=== PATIENT | female | born 1950 | race Caucasian/White ===

== ENCOUNTER 2017-09-26 12:20 | Inpatient (IN) | payer MEDICARE, BC ==
[~2017-09-26] VITALS: Ht 157.5 cm; Wt 61.2 kg
[~2017-09-26 12:20] MED LIST: CYCL10 PO; LORA1TAB3 PO; PALI234D IM; PALI6 PO
[2017-09-26 13:00] LABS: BASOPHILS % (AUTO) 0.6 % (0.0-2.0); EOSINOPHILS % (AUTO) 0.5 % (1.0-6.0); HEMATOCRIT 36.4 % (36-46); HEMOGLOBIN 12.6 g/dL (12.0-16.0); LYMPHOCYTES # (AUTO) 2.8 K/uL (1.0-4.8); LYMPHOCYTES % (AUTO) 19.1 % (22.0-44.0); MEAN CORPUSCULAR HGB CONC 34.6 G/dL (31.0-37.0); MEAN CORPUSCULAR VOLUME 87 fL (80-100); MONOCYTES # (AUTO) 0.9 K/uL (0.1-1.0); MONOCYTES % (AUTO) 6.5 % (2.0-9.0); NEUTROPHILS # (AUTO) 10.6 K/uL (1.8-7.7); NEUTROPHILS % (AUTO) 73.3 % (40.0-70.0); PLATELET COUNT (AUTO) 273 K/uL (150-450); RED BLOOD CELL COUNT(AUTO) 4.19 MIL/uL (4.00-5.20); RED CELL DISTRIBUTION WIDTH 13.7 % (11.5-14.5)
[2017-09-26 13:10] LABS: ANION GAP 13 mmol/L (8-16); CALCIUM, TOTAL 9.3 mg/dL (8.8-10.5); CARBON DIOXIDE 23 mmol/L (22-29); CHLORIDE 102 mmol/L (98-107); CREATININE 0.82 mg/dL (0.60-1.30); GLOMERULAR FILTR. RATE CALC > 60 mL/min (>60); GLUCOSE,RANDOM 106 mg/dL (70-110); POTASSIUM 3.8 mmol/L (3.5-5.1); SODIUM SERUM 138 mmol/L (136-145); UREA NITROGEN, BLOOD 13 mg/dL (7-18)
[2017-09-26 13:26] LABS: ALANINE AMINOTRANSFERASE 33 U/L (12-78); ALBUMIN 3.6 g/dL (3.4-5.0); ALKALINE PHOSPHATASE 82 U/L (46-116); ASPARTATE AMINOTRANSFERASE 30 U/L (15-37); BILIRUBIN,TOTAL 0.4 mg/dL (0.1-1.0); TOTAL PROTEIN, SERUM 6.7 g/dL (6.4-8.2)
[2017-09-26] MEDS ORDERED: LORazepam 2 MG TABLET PO PRN (17:15)
[2017-09-26] MEDS ORDERED: LIDOCAINE HCL 1% 20 ML VIAL INJ ONE (17:15)
[2017-09-26] MEDS ORDERED: HALOPERIDOL 5 MG TABLET PO PRN (17:15)
[2017-09-26] MEDS ORDERED: SODIUM CHLORIDE 0.9% 250 ML IRRIG SOLUTION BOTTLE IRRIG ONE (17:15)
[2017-09-26] MEDS ORDERED: PERTUSS(ACELL),DIPH,TET VAC/PF 0.5 ML VIAL IM ONE (17:15)
[2017-09-26] MEDS ORDERED: ZOLPIDEM TARTRATE 10 MG TABLET PO PRN (17:15)
[2017-09-26 20:21] VITALS: BP 112/62
[2017-09-26] MEDS ORDERED: IBUPROFEN 600 MG TABLET PO PRN (20:45)
[2017-09-26] MEDS ORDERED: LOPERAMIDE HCL 2 MG CAPSULE PO PRN (20:45)
[2017-09-26] MEDS ORDERED: MAG HYDROX/AL HYDROX/SIMETH ES 30 ML SUSPENSION UDCUP PO PRN (20:45)
[2017-09-26] MEDS ORDERED: MAGNESIUM HYDROXIDE SUSPENSION 30 ML UDCUP PO PRN (20:45)
[2017-09-26] MEDS ORDERED: ACETAMINOPHEN 325 MG TABLET PO PRN (20:45)
[2017-09-26] MEDS ORDERED: PETROLATUM,WHITE 71 GM JELLY TP PRN (20:45)
[2017-09-26] MEDS ORDERED: BENZOCAINE/MENTHOL LOZENGE MM PRN (20:45)
[2017-09-26] MEDS ORDERED: BACITRACIN 28.4 GM OINTMENT TP PRN (20:45)
[2017-09-26] MEDS ORDERED: ONDANSETRON HCL 4 MG TABLET PO PRN (20:45)
[2017-09-26] MEDS ORDERED: CloNIDine HCL 0.1 MG TABLET PO PRN (20:45)
[2017-09-26] MEDS ORDERED: ALBUTEROL SULFATE HFA 90 MCG/PUFF 8 GM INHALER IH PRN (20:45)
[2017-09-27 13:08] VITALS: BP 125/69
[2017-09-27 16:46] VITALS: BP 119/77
[2017-09-27] MEDS: PALIPERIDONE 6 MG ER TABLET PO SCH (21:00)
[2017-09-28] MEDS: ASCORBIC ACID 500 MG TABLET PO SCH (08:12)
[2017-09-28] MEDS: PALIPERIDONE 6 MG ER TABLET PO SCH ×2 (08:12→21:00)
[2017-09-28] MEDS: MULTIVITAMINS, THERAPEUTIC TABLET PO SCH (08:12)
[2017-09-28 08:35] VITALS: BP 126/70
[2017-09-28 16:00] VITALS: BP 110/63
[2017-09-28] MEDS: SULFAMETHOX/TRIMETH DS 800-160 MG/TABLET PO SCH (16:50)
[2017-09-29 08:29] VITALS: BP 150/76
[2017-09-29] MEDS: SULFAMETHOX/TRIMETH DS 800-160 MG/TABLET PO SCH ×2 (08:47→16:12)
[2017-09-29] MEDS: MULTIVITAMINS, THERAPEUTIC TABLET PO SCH ×2 (08:48→12:13)
[2017-09-29] MEDS: PALIPERIDONE 6 MG ER TABLET PO SCH ×2 (08:48→20:32)
[2017-09-29] MEDS: ASCORBIC ACID 500 MG TABLET PO SCH ×2 (08:48→12:13)
[2017-09-29 16:30] VITALS: BP 131/72
[2017-09-30] MEDS: PALIPERIDONE 6 MG ER TABLET PO SCH ×2 (07:38→20:35)
[2017-09-30] MEDS: ASCORBIC ACID 500 MG TABLET PO SCH (07:40)
[2017-09-30] MEDS: SULFAMETHOX/TRIMETH DS 800-160 MG/TABLET PO SCH ×2 (07:40→16:35)
[2017-09-30] MEDS: MULTIVITAMINS, THERAPEUTIC TABLET PO SCH (07:40)
[2017-09-30 08:28] VITALS: BP 146/66
[2017-10-01 06:05] LABS: BAND NEUTROPHILS % (MANUAL) 0 % (0-5)
[2017-10-01 06:06] VITALS: BP 103/67
[2017-10-01 06:09] LABS: HEMATOCRIT 36.2 % (36-46); HEMOGLOBIN 12.7 g/dL (12.0-16.0); MEAN CORPUSCULAR HEMOGLOBIN 30.7 pg (26.0-34.0); MEAN CORPUSCULAR VOLUME 88 fL (80-100); PLATELET COUNT (AUTO) 255 K/uL (150-450); RED BLOOD CELL COUNT(AUTO) 4.13 MIL/uL (4.00-5.20); RED CELL DISTRIBUTION WIDTH 14.4 % (11.5-14.5)
[2017-10-01 06:21] LABS: ANION GAP 6 mmol/L (8-16); CALCIUM, TOTAL 9.3 mg/dL (8.8-10.5); CARBON DIOXIDE 29 mmol/L (22-29); CHLORIDE 105 mmol/L (98-107); CREATININE 0.89 mg/dL (0.60-1.30); GLOMERULAR FILTR. RATE CALC > 60 mL/min (>60); GLUCOSE,RANDOM 91 mg/dL (70-110); PHOSPHORUS 4.3 mg/dL (2.5-4.9); POTASSIUM 4.7 mmol/L (3.5-5.1); SODIUM SERUM 140 mmol/L (136-145); UREA NITROGEN, BLOOD 18 mg/dL (7-18)
[2017-10-01] MEDS: MULTIVITAMINS, THERAPEUTIC TABLET PO SCH (08:20)
[2017-10-01] MEDS: ASCORBIC ACID 500 MG TABLET PO SCH (08:20)
[2017-10-01] MEDS: SULFAMETHOX/TRIMETH DS 800-160 MG/TABLET PO SCH ×2 (08:21→16:14)
[2017-10-01] MEDS: PALIPERIDONE 6 MG ER TABLET PO SCH ×2 (08:24→20:19)
[2017-10-01 09:15] LABS: EOSINOPHILS % (MANUAL) 1 % (1-6); LYMPHOCYTES % (MANUAL) 28 % (22-44); MONOCYTES % (MANUAL) 3 % (2-9); SEGMENTED NEUTROPHILS % 68 % (40-70)
[2017-10-01 09:57] VITALS: BP 106/64
[2017-10-01 17:00] VITALS: BP 101/62
[2017-10-02 01:30] VITALS: BP 106/65
[2017-10-02] MEDS: MULTIVITAMINS, THERAPEUTIC TABLET PO SCH (08:14)
[2017-10-02] MEDS: ASCORBIC ACID 500 MG TABLET PO SCH (08:14)
[2017-10-02] MEDS: SULFAMETHOX/TRIMETH DS 800-160 MG/TABLET PO SCH (08:14)
[2017-10-02] MEDS: PALIPERIDONE 6 MG ER TABLET PO SCH (08:15)
[2017-10-02 09:50] VITALS: BP 117/75
[2017-10-02] MEDS ORDERED: MULT-1239 PO (11:08)
[2017-10-02] MEDS ORDERED: ASCO500 PO (11:08)
[2017-10-02] MEDS ORDERED: SULF1TAB42 PO (11:10)
== END 2017-10-02 12:30 | disposition home or self-care (01) | DRG 885 ==
LOC: EMS 12:21 → 3EC 18:13
PROVIDERS: ADMIT Psychiatry & Neurology Psychiatry; ATTEND Psychiatry & Neurology Psychiatry
DX: F25.9 Schizoaffective disorder, unspecified (principal); K51.90 Ulcerative colitis, unspecified, without complications; T79.7XXA Traumatic subcutaneous emphysema, initial encounter; F41.9 Anxiety disorder, unspecified; K59.00 Constipation, unspecified; F17.210 Nicotine dependence, cigarettes, uncomplicated; Z71.6 Tobacco abuse counseling; S61.411A Laceration without foreign body of right hand, initial encounter; X58.XXXA Exposure to other specified factors, initial encounter; Y93.89 Activity, other specified; Y92.89 Other specified places as the place of occurrence of the external cause; Y99.8 Other external cause status; Z59.0 Homelessness; D72.829 Elevated white blood cell count, unspecified; Z91.19 Patient's noncompliance with other medical treatment and regimen; F10.21 Alcohol dependence, in remission; F19.11 Other psychoactive substance abuse, in remission
CPT/HCPCS: 12002; 83735; 84100; 85007; 87081; 90471; 90715; 96372; 99285; G0480; J0690; J3490

== ENCOUNTER 2022-10-13 17:07 | Inpatient (IN) | payer MEDICARE, OTHER ==
[~2022-10-13] VITALS: Ht 170.2 cm; Wt 73.0 kg
[~2022-10-13 17:07] MED LIST changes: +ASCO500 PO; -CYCL10 PO; -LORA1TAB3 PO; +MULT-1239 PO; -PALI234D IM; -PALI6 PO; +PALI6TAB15 PO; +SULF1TAB42 PO
[2022-10-13] MEDS ORDERED: NALOXONE HCL 1 MG/ML 2 ML SYRINGE IVP ONE (17:30)
[2022-10-13] MEDS ORDERED: CefTRIAXone 1 GM/DEXTROSE 50 ML IV ONE (17:30)
[2022-10-13] MEDS ORDERED: FLUP10TA8 PO (17:43)
[2022-10-13] MEDS ORDERED: LORA-999 PO (17:43)
[2022-10-13] MEDS ORDERED: TRAZ-252 PO (17:43)
[2022-10-13] MEDS ORDERED: APIX5TAB PO (17:43)
[2022-10-13] MEDS ORDERED: NICO-703 TD (17:43)
[2022-10-13] MEDS ORDERED: THIA100T92 PO (17:43)
[2022-10-13] MEDS ORDERED: MELO-108 PO (17:43)
[2022-10-13] MEDS ORDERED: BENZ1TAB84 PO (17:43)
[2022-10-13] MEDS ORDERED: ALBU18HF12 IH (17:43)
[2022-10-13] MEDS ORDERED: ARIP15TA27 PO (17:43)
[2022-10-13] MEDS ORDERED: MULT-1366 PO (17:43)
[2022-10-13] MEDS ORDERED: FLUT1BLS3 IH (17:43)
[2022-10-13] MEDS ORDERED: KETO15CR2 TP (17:43)
[2022-10-13] MEDS ORDERED: LOSA-382 PO (17:43)
[2022-10-13 17:46] LABS: ABG BASE EXCESS 8.4 mmol/L (-2.0-3.0); ABG CARBOXYHEMOGLOBIN 3.9 % (0.0-1.5); ABG HCO3 28.3 mmol/L (22.0-26.0); ABG METHEMOGLOBIN 0.3 % (0.0-1.5); ABG OXYGEN CONTENT 18.2 mL/dL (15.0-23.0); ABG OXYGEN SATURATION 98.7 % (95.0-98.0); ABG OXYHEMOGLOBIN 94.6 % (94.0-100.0); ABG PCO2 126 mmHg (35-45); ABG TOTAL HEMOGLOBIN 13.4 G/dL (12.0-18.0); ALLEN TEST, BLOOD GAS Positive; PO2, ARTERIAL BG 197.9 mmHg (75.0-83.0); SITE, BLOOD GAS LFT RADIAL; SOURCE, BLOOD GAS ARTERIAL; TEMPERATURE, FAHRENHEIT, BG 99.3 FAHREN (96.0-98.6)
[2022-10-13 17:47] LABS: O2 DEVICE,BLOOD GAS NON REBREATHER (ROOM AIR)
[2022-10-13 17:54] LABS: COVID AG,FIA SOURCE NASAL SWAB
[2022-10-13 17:57] LABS: BASOPHILS % (AUTO) 0.1 % (0.0-2.0); EOSINOPHILS % (AUTO) 0.1 % (1.0-6.0); HEMATOCRIT 37.6 % (36-46); HEMOGLOBIN 12.2 g/dL (12.0-16.0); LYMPHOCYTES # (AUTO) 0.6 K/uL (1.0-4.8); LYMPHOCYTES % (AUTO) 7.7 % (22.0-44.0); MEAN CORPUSCULAR HEMOGLOBIN 27.7 pg (26.0-34.0); MEAN CORPUSCULAR HGB CONC 32.3 G/dL (31.0-37.0); MEAN CORPUSCULAR VOLUME 86 fL (80-100); MONOCYTES # (AUTO) 0.9 K/uL (0.1-1.0); MONOCYTES % (AUTO) 10.4 % (2.0-9.0); NEUTROPHILS # (AUTO) 6.7 K/uL (1.8-7.7); NEUTROPHILS % (AUTO) 81.7 % (40.0-70.0); PLATELET COUNT (AUTO) 287 K/uL (150-450); RED BLOOD CELL COUNT(AUTO) 4.39 MIL/uL (4.00-5.20); RED CELL DISTRIBUTION WIDTH 16.6 % (11.5-14.5); WHITE BLOOD COUNT (AUTO) 8.2 K/uL (4.5-11.0)
[2022-10-13 18:02] LABS: APPEARANCE,URINE CLEAR (CLEAR); BILIRUBIN,URINE NEGATIVE (NEGATIVE); COLOR,URINE YELLOW (YELLOW); GLUCOSE, URINE (UA) NEGATIVE (NEGATIVE); KETONES,URINE NEGATIVE (NEGATIVE); LEUKOCYTE ESTERASE ,URINE NEGATIVE (NEGATIVE); NITRATE,URINE NEGATIVE (NEGATIVE); OCCULT BLOOD,URINE NEGATIVE (NEGATIVE); PH,URINE 5.5 (5.0-8.0); PH,URINE DRUG SCREEN 5.5 (5.0-8.0); PROTEIN,URINE 100-200,SEE CONFIRM mg/dL (NEGATIVE)
[2022-10-13] MEDS: PROPOFOL 1000 MG/ISO-OSM 100 ML IV PRN (18:05)
[2022-10-13 18:07] VITALS: PULSE 94; RESP 24; O2SAT 97
[2022-10-13 18:09] LABS: ALCOHOL, URINE DRUG SCREEN NEGATIVE (NEGATIVE); AMPHET/METH SCREEN,URINE NEGATIVE (NEGATIVE); BARBITURATE SCREEN, URINE NEGATIVE (NEGATIVE); BENZODIAZEPINES SCREEN,URINE NEGATIVE (NEGATIVE); CANNABINOID SCREEN,URINE NEGATIVE (NEGATIVE); COCAINE SCREEN,URINE NEGATIVE (NEGATIVE); METHADONE SCREEN, URINE NEGATIVE (NEGATIVE); OPIATE SCREEN,URINE NEGATIVE (NEGATIVE); PHENCYCLIDINE SCREEN,URINE NEGATIVE (NEGATIVE)
[2022-10-13 18:16] LABS: SULFOSALICYLIC ACID,URINE 3+ (Negative)
[2022-10-13 18:17] LABS: BACTERIA,URINE None Seen /HPF (None Seen); RBC,URINE None Seen /HPF (0-2); WBC,URINE 0-2 /HPF (0-5)
[2022-10-13 18:20] LABS: INFLUENZA TYPE A NEGATIVE FOR TYPE A (NEGATIVE); INFLUENZA TYPE B NEGATIVE FOR TYPE B (NEGATIVE); SARS-COV2 (COVID) ANTIGEN,FIA Negative (Negative)
[2022-10-13 18:21] LABS: B-TYPE NATRIURETIC PEPTIDE 553 pg/mL (0-100)
[2022-10-13 18:29] LABS: ALCOHOL, BLOOD (SERUM) < 3 mg/dL (0-10)
[2022-10-13 18:33] LABS: ALANINE AMINOTRANSFERASE 42 U/L (12-78); ALBUMIN 3.1 g/dL (3.4-5.0); ALKALINE PHOSPHATASE 104 U/L (46-116); ANION GAP 4 mmol/L (8-16); ASPARTATE AMINOTRANSFERASE 27 U/L (15-37); BILIRUBIN,TOTAL 0.4 mg/dL (0.1-1.0); CALCIUM, TOTAL 8.5 mg/dL (8.8-10.5); CARBON DIOXIDE 34 mmol/L (22-29); CHLORIDE 86 mmol/L (98-107); CREATINE KINASE, TOTAL ONLY 95 U/L (26-192); CREATININE 0.64 mg/dL (0.60-1.30); GLOMERULAR FILTR. RATE CALC > 60 mL/min (>60); GLUCOSE,RANDOM 138 mg/dL (70-110); LIPASE 14 U/L (16-77); POTASSIUM 5.4 mmol/L (3.5-5.1); TOTAL PROTEIN, SERUM 6.3 g/dL (6.4-8.2); UREA NITROGEN, BLOOD 21 mg/dL (7-18)
[2022-10-13 18:36] LABS: ACETONE,BLOOD NEGATIVE (NEGATIVE)
[2022-10-13 18:40] LABS: SODIUM SERUM 124 mmol/L (136-145)
[2022-10-13] MEDS ORDERED: ETOMIDATE 2 MG/ML 10 ML VIAL IVP ONE (18:45)
[2022-10-13] MEDS ORDERED: PROPOFOL 1000 MG/ISO-OSM 100 ML IV PRN (18:45)
[2022-10-13] MEDS ORDERED: ROCURONIUM BROMIDE 10 MG/ML 5 ML VIAL IVP ONE (18:45)
[2022-10-13 18:48] LABS: AMMONIA 45 umol/L (11-32); TROPONIN I-HIGH SENSITIVITY 15 ng/L (<51)
[2022-10-13] MEDS ORDERED: LACTULOSE 200 GM/300 ML RECTAL SOLUTION PR ONE (19:00)
[2022-10-13] MEDS ORDERED: CALCIUM GLUCONATE 100 MG/ML 10 ML IVP ONE (19:00)
[2022-10-13] MEDS ORDERED: ONDANSETRON HCL 4 MG/2 ML VIAL IVP PRN (19:00)
[2022-10-13] MEDS ORDERED: VECURONIUM BROMIDE 10 MG/VIAL IVP ONE (19:15)
[2022-10-13] MEDS ORDERED: FentaNYL CIT 1000MCG/0.9% NACL 100 ML IV PRN (19:15)
[2022-10-13 19:21] LABS: LACTIC ACID 1.3 mmol/L (0.4-2.0)
[2022-10-13 19:56] VITALS: PULSE 92; RESP 32; O2SAT 99
[2022-10-13 19:57] VITALS: PULSE 92; RESP 32; O2SAT 99
[2022-10-13] MEDS ORDERED: OXYGEN THERAPY IH SCH (20:00)
[2022-10-13] MEDS ORDERED: LEVOFLOXACIN 500 MG/D5% WATER 100 ML IV ONE (20:45)
[2022-10-13] MEDS: DOCUSATE SODIUM 100 MG CAPSULE PO SCH (21:00)
[2022-10-13] MEDS ORDERED: SODIUM CHLORIDE 0.9% 1,500 ML IV ONE (21:00)
[2022-10-13 22:00] VITALS: PULSE 89; RESP 24; O2SAT 94
[2022-10-13] MEDS: ETHYL ALCOHOL 62% ANTISEPTIC NASAL SANITIZER 0.6 ML AMPUL NASAL SCH (22:08)
[2022-10-13] MEDS: AZITHROMYCIN 500 MG/NS 250 ML IV SCH (22:09)
[2022-10-13] MEDS ORDERED: SODIUM CHLORIDE 0.9% 500 ML IV ONE (22:12)
[2022-10-13 23:27] LABS: ABG BASE EXCESS 10.6 mmol/L (-2.0-3.0); ABG CARBOXYHEMOGLOBIN 0.8 % (0.0-1.5); ABG HCO3 33.4 mmol/L (22.0-26.0); ABG METHEMOGLOBIN 0.3 % (0.0-1.5); ABG OXYGEN CONTENT 19.6 mL/dL (15.0-23.0); ABG OXYGEN SATURATION 99.9 % (95.0-98.0); ABG OXYHEMOGLOBIN 98.8 % (94.0-100.0); ABG PCO2 45 mmHg (35-45); ABG PH 7.496 (7.35-7.450); ABG TOTAL HEMOGLOBIN 13.2 G/dL (12.0-18.0); PO2, ARTERIAL BG 462.4 mmHg (75.0-83.0); SITE, BLOOD GAS RT RADIAL; SOURCE, BLOOD GAS ARTERIAL; TEMPERATURE, FAHRENHEIT, BG 100.2 FAHREN (96.0-98.6)
[2022-10-13 23:28] LABS: O2 DEVICE,BLOOD GAS VENTILATOR (ROOM AIR); PEEP,BG 5 cm H2O; VT, ABG 450 ml
[2022-10-13] MEDS: HEPARIN SODIUM,PORCINE 5,000 UNITS/ML VIAL SQ SCH (23:33)
[2022-10-13 23:50] VITALS: PULSE 78; RESP 28; O2SAT 98
[2022-10-14] VITALS (14 sets, daily range): BP systolic 84–105; BP diastolic 54–79; PULSE 77–90; RESP 24; TEMP 98–100.2; O2SAT 94–98
[2022-10-14] MEDS: PROPOFOL 1000 MG/ISO-OSM 100 ML IV PRN ×3 (05:25→18:40)
[2022-10-14] MEDS ORDERED: DEXMEDETOMIDINE HCL 400 MCG in SODIUM CHLORIDE 0.9% 96 ML IV PRN (05:30)
[2022-10-14] MEDS ORDERED: NOREPINEPHRINE 8 MG/0.9 % NACL 250 ML IV ONE (05:48)
[2022-10-14] MEDS ORDERED: ROCURONIUM BROMIDE 10 MG/ML 5 ML VIAL IVP ONE (06:15)
[2022-10-14] MEDS ORDERED: ETOMIDATE 2 MG/ML 10 ML VIAL IVP ONE (06:15)
[2022-10-14] MEDS: DOCUSATE SODIUM 100 MG CAPSULE PO SCH ×2 (08:22→21:00)
[2022-10-14] MEDS: HEPARIN SODIUM,PORCINE 5,000 UNITS/ML VIAL SQ SCH ×3 (08:22→23:27)
[2022-10-14] MEDS: ETHYL ALCOHOL 62% ANTISEPTIC NASAL SANITIZER 0.6 ML AMPUL NASAL SCH ×2 (08:22→21:16)
[2022-10-14 08:28] LABS: BASOPHILS % (AUTO) 0.5 % (0.0-2.0); EOSINOPHILS % (AUTO) 0.2 % (1.0-6.0); HEMATOCRIT 37.5 % (36-46); HEMOGLOBIN 11.9 g/dL (12.0-16.0); LYMPHOCYTES # (AUTO) 2.6 K/uL (1.0-4.8); LYMPHOCYTES % (AUTO) 22.1 % (22.0-44.0); MEAN CORPUSCULAR HEMOGLOBIN 26.5 pg (26.0-34.0); MEAN CORPUSCULAR HGB CONC 31.6 G/dL (31.0-37.0); MEAN CORPUSCULAR VOLUME 84 fL (80-100); MONOCYTES # (AUTO) 1.3 K/uL (0.1-1.0); MONOCYTES % (AUTO) 11.2 % (2.0-9.0); NEUTROPHILS # (AUTO) 7.8 K/uL (1.8-7.7); PLATELET COUNT (AUTO) 278 K/uL (150-450); RED BLOOD CELL COUNT(AUTO) 4.47 MIL/uL (4.00-5.20); RED CELL DISTRIBUTION WIDTH 17.3 % (11.5-14.5); WHITE BLOOD COUNT (AUTO) 11.8 K/uL (4.5-11.0)
[2022-10-14 08:42] LABS: ANION GAP 5 mmol/L (8-16); CALCIUM, TOTAL 8.4 mg/dL (8.8-10.5); CARBON DIOXIDE 33 mmol/L (22-29); CHLORIDE 88 mmol/L (98-107); CREATININE 0.63 mg/dL (0.60-1.30); GLOMERULAR FILTR. RATE CALC > 60 mL/min (>60); GLUCOSE,RANDOM 101 mg/dL (70-110); POTASSIUM 4.8 mmol/L (3.5-5.1); SODIUM SERUM 126 mmol/L (136-145); UREA NITROGEN, BLOOD 19 mg/dL (7-18)
[2022-10-14 09:12] LABS: RBC MORPHOLOGY COMMENT ABNORMAL RBC MORPH
[2022-10-14 09:55] LABS: SODIUM,URINE RANDOM < 5 mmol/l (20-110)
[2022-10-14 09:56] LABS: OSMOLALITY,URINE 419 mOsm/kg (50-1500)
[2022-10-14] MEDS: FentaNYL CIT 1000MCG/0.9% NACL 100 ML IV PRN (10:33)
[2022-10-14] MEDS: DEXTROSE 5%-0.9% SODIUM CHL 1,000 ML IV SCH ×2 (10:56→21:17)
[2022-10-14 16:46] LABS: CREATININE,URINE RANDOM 84.8 mg/dL (30.0-125.0)
[2022-10-14] MEDS: AZITHROMYCIN 500 MG/NS 250 ML IV SCH (23:27)
[2022-10-15] VITALS (15 sets, daily range): BP systolic 80–112; BP diastolic 46–63; PULSE 57–88; RESP 24; TEMP 98.2–101; O2SAT 94–100
[2022-10-15] MEDS: PROPOFOL 1000 MG/ISO-OSM 100 ML IV PRN ×4 (03:07→23:45)
[2022-10-15 06:12] LABS: EOSINOPHILS % (AUTO) 0.2 % (1.0-6.0); HEMATOCRIT 39.5 % (36-46); HEMOGLOBIN 12.7 g/dL (12.0-16.0); LYMPHOCYTES % (AUTO) 17.6 % (22.0-44.0); MEAN CORPUSCULAR HEMOGLOBIN 27.8 pg (26.0-34.0); MEAN CORPUSCULAR HGB CONC 32.2 G/dL (31.0-37.0); MEAN CORPUSCULAR VOLUME 86 fL (80-100); MONOCYTES # (AUTO) 1.2 K/uL (0.1-1.0); MONOCYTES % (AUTO) 10.8 % (2.0-9.0); NEUTROPHILS % (AUTO) 70.4 % (40.0-70.0); PLATELET COUNT (AUTO) 128 K/uL (150-450); RED BLOOD CELL COUNT(AUTO) 4.57 MIL/uL (4.00-5.20); WHITE BLOOD COUNT (AUTO) 11.3 K/uL (4.5-11.0)
[2022-10-15 06:42] LABS: ANION GAP 15 mmol/L (8-16); CALCIUM, TOTAL 8.5 mg/dL (8.8-10.5); CARBON DIOXIDE 31 mmol/L (22-29); CHLORIDE 93 mmol/L (98-107); CREATININE 0.63 mg/dL (0.60-1.30); GLOMERULAR FILTR. RATE CALC > 60 mL/min (>60); GLUCOSE,RANDOM 120 mg/dL (70-110); PHOSPHORUS 2.7 mg/dL (2.5-4.9); POTASSIUM 4.4 mmol/L (3.5-5.1); SODIUM SERUM 139 mmol/L (136-145); UREA NITROGEN, BLOOD 15 mg/dL (7-18)
[2022-10-15] MEDS: HEPARIN SODIUM,PORCINE 5,000 UNITS/ML VIAL SQ SCH ×3 (08:14→23:46)
[2022-10-15] MEDS: DEXTROSE 5%-0.9% SODIUM CHL 1,000 ML IV SCH (08:14)
[2022-10-15] MEDS: DOCUSATE SODIUM 100 MG CAPSULE PO SCH ×2 (08:14→20:19)
[2022-10-15] MEDS: ETHYL ALCOHOL 62% ANTISEPTIC NASAL SANITIZER 0.6 ML AMPUL NASAL SCH ×2 (08:16→20:19)
[2022-10-15] MEDS ORDERED: DEXTROSE 5%-WATER 1,000 ML IV SCH (11:45)
[2022-10-15 12:48] LABS: ANION GAP 3 mmol/L (8-16); CALCIUM, TOTAL 8.2 mg/dL (8.8-10.5); CARBON DIOXIDE 34 mmol/L (22-29); CHLORIDE 100 mmol/L (98-107); CREATININE 0.57 mg/dL (0.60-1.30); GLOMERULAR FILTR. RATE CALC > 60 mL/min (>60); GLUCOSE,RANDOM 110 mg/dL (70-110); POTASSIUM 4.1 mmol/L (3.5-5.1); SODIUM SERUM 137 mmol/L (136-145); UREA NITROGEN, BLOOD 11 mg/dL (7-18)
[2022-10-15 12:51] LABS: PHOSPHORUS 2.9 mg/dL (2.5-4.9)
[2022-10-15] MEDS: SODIUM CHLORIDE 0.45% 1,000 ML IV SCH ×2 (14:48→15:00)
[2022-10-15 17:40] LABS: ANION GAP 18 mmol/L (8-16); CALCIUM, TOTAL 8.2 mg/dL (8.8-10.5); CARBON DIOXIDE 32 mmol/L (22-29); CHLORIDE 97 mmol/L (98-107); CREATININE 0.52 mg/dL (0.60-1.30); GLOMERULAR FILTR. RATE CALC > 60 mL/min (>60); GLUCOSE,RANDOM 100 mg/dL (70-110); POTASSIUM 4.3 mmol/L (3.5-5.1); SODIUM SERUM 147 mmol/L (136-145); UREA NITROGEN, BLOOD 10 mg/dL (7-18)
[2022-10-15] MEDS ORDERED: NOREPINEPHRINE 8 MG/0.9 % NACL 250 ML IV ONE (20:06)
[2022-10-15] MEDS: FentaNYL CIT 1000MCG/0.9% NACL 100 ML IV PRN (20:20)
[2022-10-15] MEDS: NOREPINEPHRINE 8 MG/0.9 % NACL 250 ML IV PRN (20:21)
[2022-10-15] MEDS: BUDESONIDE 0.5 MG/2 ML NEB SOLUTION NEB SCH (20:47)
[2022-10-15] MEDS: ALBUTEROL SULFATE 2.5 MG/0.5 ML NEB SOLUTION NEB SCH (20:47)
[2022-10-15] MEDS: IPRATROPIUM BROMIDE 0.5 MG/2.5 ML NEB SOLUTION NEB SCH (20:49)
[2022-10-15] MEDS: ACETAMINOPHEN 325 MG TABLET PO PRN (21:07)
[2022-10-15] MEDS: AZITHROMYCIN 500 MG/NS 250 ML IV SCH (23:45)
[2022-10-16] VITALS (16 sets, daily range): BP systolic 102–147; BP diastolic 47–93; PULSE 62–100; RESP 24–26; TEMP 99.7–101; O2SAT 93–99
[2022-10-16] MEDS: ALBUTEROL SULFATE 2.5 MG/0.5 ML NEB SOLUTION NEB SCH ×4 (04:16→20:01)
[2022-10-16] MEDS: IPRATROPIUM BROMIDE 0.5 MG/2.5 ML NEB SOLUTION NEB SCH ×4 (04:16→20:00)
[2022-10-16] MEDS: SODIUM CHLORIDE 0.45% 1,000 ML IV SCH (05:52)
[2022-10-16] MEDS: ACETAMINOPHEN 325 MG TABLET PO PRN ×3 (05:52→20:58)
[2022-10-16 08:12] LABS: BASOPHILS % (AUTO) 0.9 % (0.0-2.0); EOSINOPHILS % (AUTO) 0.3 % (1.0-6.0); HEMATOCRIT 38.2 % (36-46); HEMOGLOBIN 12.1 g/dL (12.0-16.0); LYMPHOCYTES # (AUTO) 2.2 K/uL (1.0-4.8); LYMPHOCYTES % (AUTO) 12.2 % (22.0-44.0); MEAN CORPUSCULAR HGB CONC 31.7 G/dL (31.0-37.0); MEAN CORPUSCULAR VOLUME 85 fL (80-100); MONOCYTES # (AUTO) 1.5 K/uL (0.1-1.0); MONOCYTES % (AUTO) 8.2 % (2.0-9.0); NEUTROPHILS # (AUTO) 14.1 K/uL (1.8-7.7); NEUTROPHILS % (AUTO) 78.4 % (40.0-70.0); PLATELET COUNT (AUTO) 343 K/uL (150-450); RED BLOOD CELL COUNT(AUTO) 4.47 MIL/uL (4.00-5.20); RED CELL DISTRIBUTION WIDTH 17.5 % (11.5-14.5)
[2022-10-16 08:26] LABS: ANION GAP 5 mmol/L (8-16); CALCIUM, TOTAL 8.5 mg/dL (8.8-10.5); CARBON DIOXIDE 30 mmol/L (22-29); CHLORIDE 100 mmol/L (98-107); CREATININE 0.52 mg/dL (0.60-1.30); GLOMERULAR FILTR. RATE CALC > 60 mL/min (>60); GLUCOSE,RANDOM 112 mg/dL (70-110); PHOSPHORUS 3.8 mg/dL (2.5-4.9); POTASSIUM 4.1 mmol/L (3.5-5.1); SODIUM SERUM 135 mmol/L (136-145); UREA NITROGEN, BLOOD 9 mg/dL (7-18)
[2022-10-16] MEDS: HEPARIN SODIUM,PORCINE 5,000 UNITS/ML VIAL SQ SCH ×2 (09:18→17:58)
[2022-10-16] MEDS: FentaNYL CIT 1000MCG/0.9% NACL 100 ML IV PRN ×2 (09:18→22:06)
[2022-10-16] MEDS: PROPOFOL 1000 MG/ISO-OSM 100 ML IV PRN ×2 (09:18→22:07)
[2022-10-16] MEDS: CefTRIAXone 1 GM/DEXTROSE 50 ML IV SCH (09:19)
[2022-10-16] MEDS: ETHYL ALCOHOL 62% ANTISEPTIC NASAL SANITIZER 0.6 ML AMPUL NASAL SCH ×2 (09:19→20:57)
[2022-10-16] MEDS: BUDESONIDE 0.5 MG/2 ML NEB SOLUTION NEB SCH ×2 (09:33→20:01)
[2022-10-16] MEDS: DOCUSATE SODIUM 100 MG CAPSULE PO SCH ×2 (09:33→20:57)
[2022-10-16 11:59] LABS: ABG BASE EXCESS 6.3 mmol/L (-2.0-3.0); ABG CARBOXYHEMOGLOBIN 0.5 % (0.0-1.5); ABG HCO3 29.5 mmol/L (22.0-26.0); ABG METHEMOGLOBIN 0.3 % (0.0-1.5); ABG OXYGEN CONTENT 16.6 mL/dL (15.0-23.0); ABG OXYGEN SATURATION 95.2 % (95.0-98.0); ABG OXYHEMOGLOBIN 94.4 % (94.0-100.0); ABG PCO2 46 mmHg (35-45); ABG PH 7.439 (7.35-7.450); ABG TOTAL HEMOGLOBIN 12.5 G/dL (12.0-18.0); PO2, ARTERIAL BG 80.8 mmHg (75.0-83.0); SOURCE, BLOOD GAS ARTERIAL; TEMPERATURE, FAHRENHEIT, BG 100.7 FAHREN (96.0-98.6)
[2022-10-16 12:00] LABS: ABG A-A DIFF O2 150.1 mmHg (10-20.0); ALLEN TEST, BLOOD GAS Positive; O2 DEVICE,BLOOD GAS VENTILATOR (ROOM AIR); PEEP,BG 5 cm H2O; SITE, BLOOD GAS RT RADIAL; VT, ABG 450 ml
[2022-10-16 12:02] LABS: SPONTANEOUS VT, BG 380 ml
[2022-10-16 17:40] LABS: ANION GAP 7 mmol/L (8-16); CALCIUM, TOTAL 9.2 mg/dL (8.8-10.5); CARBON DIOXIDE 28 mmol/L (22-29); CHLORIDE 99 mmol/L (98-107); CREATININE 0.63 mg/dL (0.60-1.30); GLOMERULAR FILTR. RATE CALC > 60 mL/min (>60); GLUCOSE,RANDOM 94 mg/dL (70-110); POTASSIUM 4.4 mmol/L (3.5-5.1); SODIUM SERUM 134 mmol/L (136-145); UREA NITROGEN, BLOOD 10 mg/dL (7-18)
[2022-10-16] MEDS: AZITHROMYCIN 500 MG/NS 250 ML IV SCH (22:06)
[2022-10-17] VITALS (20 sets, daily range): BP systolic 87–175; BP diastolic 50–79; PULSE 60–107; RESP 24–25; TEMP 97.9–100.7; O2SAT 94–97
[2022-10-17] MEDS: HEPARIN SODIUM,PORCINE 5,000 UNITS/ML VIAL SQ SCH ×3 (00:52→16:00)
[2022-10-17] MEDS: SODIUM CHLORIDE 0.45% 1,000 ML IV SCH (00:53)
[2022-10-17] MEDS: IPRATROPIUM BROMIDE 0.5 MG/2.5 ML NEB SOLUTION NEB SCH ×4 (02:44→20:11)
[2022-10-17] MEDS: ALBUTEROL SULFATE 2.5 MG/0.5 ML NEB SOLUTION NEB SCH ×4 (02:45→20:11)
[2022-10-17 06:09] LABS: ANION GAP 10 mmol/L (8-16); CALCIUM, TOTAL 9.1 mg/dL (8.8-10.5); CARBON DIOXIDE 29 mmol/L (22-29); CHLORIDE 97 mmol/L (98-107); CREATININE 0.63 mg/dL (0.60-1.30); GLOMERULAR FILTR. RATE CALC > 60 mL/min (>60); GLUCOSE,RANDOM 125 mg/dL (70-110); PHOSPHORUS 4.3 mg/dL (2.5-4.9); POTASSIUM 4.4 mmol/L (3.5-5.1); SODIUM SERUM 136 mmol/L (136-145); UREA NITROGEN, BLOOD 15 mg/dL (7-18)
[2022-10-17 06:10] LABS: ALANINE AMINOTRANSFERASE 16 U/L (12-78); ALBUMIN 2.2 g/dL (3.4-5.0); ALKALINE PHOSPHATASE 120 U/L (46-116); ANION GAP 10 mmol/L (8-16); ASPARTATE AMINOTRANSFERASE 12 U/L (15-37); BILIRUBIN,TOTAL 0.6 mg/dL (0.1-1.0); CALCIUM, TOTAL 9.1 mg/dL (8.8-10.5); CARBON DIOXIDE 28 mmol/L (22-29); CHLORIDE 96 mmol/L (98-107); CREATININE 0.62 mg/dL (0.60-1.30); GLOMERULAR FILTR. RATE CALC > 60 mL/min (>60); GLUCOSE,RANDOM 126 mg/dL (70-110); POTASSIUM 4.4 mmol/L (3.5-5.1); SODIUM SERUM 134 mmol/L (136-145); TOTAL PROTEIN, SERUM 5.7 g/dL (6.4-8.2); UREA NITROGEN, BLOOD 15 mg/dL (7-18)
[2022-10-17 08:05] LABS: BASOPHILS % (AUTO) 0.3 % (0.0-2.0); EOSINOPHILS % (AUTO) 0.2 % (1.0-6.0); HEMATOCRIT 40.7 % (36-46); HEMOGLOBIN 12.7 g/dL (12.0-16.0); LYMPHOCYTES # (AUTO) 1.7 K/uL (1.0-4.8); LYMPHOCYTES % (AUTO) 9.5 % (22.0-44.0); MEAN CORPUSCULAR HEMOGLOBIN 26.7 pg (26.0-34.0); MEAN CORPUSCULAR HGB CONC 31.1 G/dL (31.0-37.0); MEAN CORPUSCULAR VOLUME 86 fL (80-100); MONOCYTES # (AUTO) 1.4 K/uL (0.1-1.0); MONOCYTES % (AUTO) 7.9 % (2.0-9.0); NEUTROPHILS # (AUTO) 14.5 K/uL (1.8-7.7); NEUTROPHILS % (AUTO) 82.1 % (40.0-70.0); PLATELET COUNT (AUTO) 316 K/uL (150-450); RED BLOOD CELL COUNT(AUTO) 4.74 MIL/uL (4.00-5.20); RED CELL DISTRIBUTION WIDTH 17.6 % (11.5-14.5); WHITE BLOOD COUNT (AUTO) 17.7 K/uL (4.5-11.0)
[2022-10-17] MEDS: ETHYL ALCOHOL 62% ANTISEPTIC NASAL SANITIZER 0.6 ML AMPUL NASAL SCH ×2 (08:20→21:36)
[2022-10-17] MEDS: DOCUSATE SODIUM 100 MG CAPSULE PO SCH ×2 (08:20→21:36)
[2022-10-17] MEDS: CefTRIAXone 1 GM/DEXTROSE 50 ML IV SCH (08:21)
[2022-10-17] MEDS: BUDESONIDE 0.5 MG/2 ML NEB SOLUTION NEB SCH ×2 (09:02→20:11)
[2022-10-17 09:43] LABS: ANION GAP 8 mmol/L (8-16); CARBON DIOXIDE 27 mmol/L (22-29); CHLORIDE 99 mmol/L (98-107); CREATININE 0.58 mg/dL (0.60-1.30); GLOMERULAR FILTR. RATE CALC > 60 mL/min (>60); GLUCOSE,RANDOM 126 mg/dL (70-110); POTASSIUM 4.7 mmol/L (3.5-5.1); SODIUM SERUM 134 mmol/L (136-145); UREA NITROGEN, BLOOD 16 mg/dL (7-18)
[2022-10-17 09:47] LABS: PHOSPHORUS 3.9 mg/dL (2.5-4.9)
[2022-10-17] MEDS: ALBUMIN HUMAN 25%-25GM/100ML 100 ML IV SCH ×3 (10:00→21:36)
[2022-10-17] MEDS: PROPOFOL 1000 MG/ISO-OSM 100 ML IV PRN ×2 (12:43→19:58)
[2022-10-17] MEDS: NOREPINEPHRINE 8 MG/0.9 % NACL 250 ML IV PRN (12:43)
[2022-10-17] MEDS ORDERED: IOHEXOL 300 MG/ML 50 ML VIAL ONE (15:03)
[2022-10-17] MEDS ORDERED: SODIUM BICARBONATE 50 MEQ/50 ML VIAL ONE (15:03)
[2022-10-17] MEDS ORDERED: LIDOCAINE/PF 1% 30 ML VIAL ONE (15:03)
[2022-10-18] VITALS (17 sets, daily range): BP systolic 92–129; BP diastolic 45–66; PULSE 67–113; RESP 24; TEMP 99.2–101.5; O2SAT 93–98
[2022-10-18] MEDS: FentaNYL CIT 1000MCG/0.9% NACL 100 ML IV PRN (00:07)
[2022-10-18] MEDS: AZITHROMYCIN 500 MG/NS 250 ML IV SCH ×2 (00:07→22:55)
[2022-10-18] MEDS: HEPARIN SODIUM,PORCINE 5,000 UNITS/ML VIAL SQ SCH ×3 (00:08→17:03)
[2022-10-18] MEDS: PROPOFOL 1000 MG/ISO-OSM 100 ML IV PRN ×4 (00:39→20:49)
[2022-10-18] MEDS: IPRATROPIUM BROMIDE 0.5 MG/2.5 ML NEB SOLUTION NEB SCH ×4 (03:21→21:12)
[2022-10-18] MEDS: ALBUTEROL SULFATE 2.5 MG/0.5 ML NEB SOLUTION NEB SCH ×4 (03:21→21:12)
[2022-10-18] MEDS: ALBUMIN HUMAN 25%-25GM/100ML 100 ML IV SCH ×4 (04:32→22:53)
[2022-10-18 05:44] LABS: BASOPHILS % (AUTO) 0.1 % (0.0-2.0); EOSINOPHILS % (AUTO) 0.6 % (1.0-6.0); HEMATOCRIT 30.8 % (36-46); HEMOGLOBIN 9.7 g/dL (12.0-16.0); LYMPHOCYTES # (AUTO) 1.7 K/uL (1.0-4.8); LYMPHOCYTES % (AUTO) 11.6 % (22.0-44.0); MEAN CORPUSCULAR HGB CONC 31.6 G/dL (31.0-37.0); MEAN CORPUSCULAR VOLUME 86 fL (80-100); MONOCYTES # (AUTO) 1.5 K/uL (0.1-1.0); MONOCYTES % (AUTO) 10.3 % (2.0-9.0); NEUTROPHILS # (AUTO) 11.4 K/uL (1.8-7.7); NEUTROPHILS % (AUTO) 77.4 % (40.0-70.0); PLATELET COUNT (AUTO) 249 K/uL (150-450); RED CELL DISTRIBUTION WIDTH 17.7 % (11.5-14.5); WHITE BLOOD COUNT (AUTO) 14.7 K/uL (4.5-11.0)
[2022-10-18 05:48] LABS: ANION GAP 5 mmol/L (8-16); CALCIUM, TOTAL 8.6 mg/dL (8.8-10.5); CARBON DIOXIDE 30 mmol/L (22-29); CHLORIDE 100 mmol/L (98-107); CREATININE 0.58 mg/dL (0.60-1.30); GLOMERULAR FILTR. RATE CALC > 60 mL/min (>60); GLUCOSE,RANDOM 112 mg/dL (70-110); PHOSPHORUS 3.5 mg/dL (2.5-4.9); POTASSIUM 4.1 mmol/L (3.5-5.1); SODIUM SERUM 135 mmol/L (136-145); UREA NITROGEN, BLOOD 15 mg/dL (7-18)
[2022-10-18] MEDS: BUDESONIDE 0.5 MG/2 ML NEB SOLUTION NEB SCH ×2 (08:41→21:12)
[2022-10-18 10:55] LABS: THYROID STIMULATING HORMONE 1.14 uIU/mL (0.36-3.74)
[2022-10-18] MEDS: ACETAMINOPHEN 325 MG TABLET PO PRN ×2 (11:03→20:49)
[2022-10-18] MEDS: DOCUSATE SODIUM 100 MG CAPSULE PO SCH ×2 (11:04→20:49)
[2022-10-18] MEDS: PANTOPRAZOLE SODIUM 40 MG/VIAL IVP SCH (11:05)
[2022-10-18] MEDS: CefTRIAXone 1 GM/DEXTROSE 50 ML IV SCH (11:05)
[2022-10-18 11:14] LABS: TOTAL PROTEIN,BODY FLUID,REF 3.8 g/dL
[2022-10-18] MEDS: ETHYL ALCOHOL 62% ANTISEPTIC NASAL SANITIZER 0.6 ML AMPUL NASAL SCH ×2 (11:14→20:50)
[2022-10-18] MEDS: DEXMEDETOMIDINE HCL 400 MCG in SODIUM CHLORIDE 0.9% 96 ML IV PRN (15:32)
[2022-10-18] MEDS: SODIUM CHLORIDE 0.45% 1,000 ML IV SCH (20:48)
[2022-10-19] VITALS (20 sets, daily range): BP systolic 101–121; BP diastolic 54–63; PULSE 61–82; RESP 24–26; TEMP 99.5–101; O2SAT 94–100
[2022-10-19] MEDS: FentaNYL CIT 1000MCG/0.9% NACL 100 ML IV PRN (00:29)
[2022-10-19] MEDS: HEPARIN SODIUM,PORCINE 5,000 UNITS/ML VIAL SQ SCH ×3 (00:29→17:02)
[2022-10-19] MEDS: IPRATROPIUM BROMIDE 0.5 MG/2.5 ML NEB SOLUTION NEB SCH ×4 (01:51→19:44)
[2022-10-19] MEDS: ALBUTEROL SULFATE 2.5 MG/0.5 ML NEB SOLUTION NEB SCH ×4 (01:51→19:44)
[2022-10-19] MEDS: ALBUMIN HUMAN 25%-25GM/100ML 100 ML IV SCH ×4 (05:24→22:07)
[2022-10-19] MEDS: PROPOFOL 1000 MG/ISO-OSM 100 ML IV PRN ×2 (05:39→18:03)
[2022-10-19 06:00] LABS: BASOPHILS % (AUTO) 0.2 % (0.0-2.0); EOSINOPHILS % (AUTO) 0.5 % (1.0-6.0); HEMATOCRIT 29.3 % (36-46); HEMOGLOBIN 9.5 g/dL (12.0-16.0); LYMPHOCYTES # (AUTO) 0.9 K/uL (1.0-4.8); MEAN CORPUSCULAR HEMOGLOBIN 27.7 pg (26.0-34.0); MEAN CORPUSCULAR HGB CONC 32.5 G/dL (31.0-37.0); MEAN CORPUSCULAR VOLUME 85 fL (80-100); MONOCYTES # (AUTO) 1.3 K/uL (0.1-1.0); MONOCYTES % (AUTO) 9.7 % (2.0-9.0); NEUTROPHILS # (AUTO) 10.7 K/uL (1.8-7.7); NEUTROPHILS % (AUTO) 82.6 % (40.0-70.0); PLATELET COUNT (AUTO) 254 K/uL (150-450); RED BLOOD CELL COUNT(AUTO) 3.44 MIL/uL (4.00-5.20); RED CELL DISTRIBUTION WIDTH 17.9 % (11.5-14.5)
[2022-10-19 06:02] LABS: ANION GAP 5 mmol/L (8-16); CALCIUM, TOTAL 8.7 mg/dL (8.8-10.5); CARBON DIOXIDE 30 mmol/L (22-29); CHLORIDE 100 mmol/L (98-107); CREATININE 0.43 mg/dL (0.60-1.30); GLOMERULAR FILTR. RATE CALC > 60 mL/min (>60); GLUCOSE,RANDOM 129 mg/dL (70-110); POTASSIUM 3.7 mmol/L (3.5-5.1); SODIUM SERUM 135 mmol/L (136-145); UREA NITROGEN, BLOOD 15 mg/dL (7-18)
[2022-10-19] MEDS: BUDESONIDE 0.5 MG/2 ML NEB SOLUTION NEB SCH ×2 (08:10→19:44)
[2022-10-19] MEDS: DOCUSATE SODIUM 100 MG CAPSULE PO SCH ×2 (08:43→22:06)
[2022-10-19] MEDS: CefTRIAXone 1 GM/DEXTROSE 50 ML IV SCH (08:43)
[2022-10-19] MEDS: ACETAMINOPHEN 325 MG TABLET PO PRN ×2 (08:43→22:16)
[2022-10-19] MEDS: ETHYL ALCOHOL 62% ANTISEPTIC NASAL SANITIZER 0.6 ML AMPUL NASAL SCH ×2 (08:43→22:06)
[2022-10-19] MEDS: PANTOPRAZOLE SODIUM 40 MG/VIAL IVP SCH (08:44)
[2022-10-19] MEDS: DEXMEDETOMIDINE HCL 400 MCG in SODIUM CHLORIDE 0.9% 96 ML IV PRN (11:30)
[2022-10-19] MEDS ORDERED: VANCOMYCIN 1GM/WATER(PEG/NADA) 200 ML IV ONE (14:00)
[2022-10-19 14:13] LABS: SPECIMENTYPE,BODY FLUID PERICARDIAL
[2022-10-19 16:21] LABS: APPEARANCE,SPUN,BODY FLUID CLEAR (CLEAR); APPEARANCE,UNSPUN,BODY FLUID BLOODY (CLEAR); BASOPHILS,BODY FLUID 0 %; COLOR,BODY FLUID RED (LT YELLOW); EOSINOPHILS,BF (ANAL) 0 %; LYMPHOCYTES,BODY FLUID 4 %; MONOCYTES,BODY FLUID 9 %; NEUTROPHILS,BODY FLUID 87 %; TOTAL VOLUME,BODY FLUID 3 mL; WBC, BODY FLUID 1269 /cu. mm.
[2022-10-19 16:37] LABS: APPEARANCE,URINE CLEAR (CLEAR); BILIRUBIN,URINE NEGATIVE (NEGATIVE); COLOR,URINE YELLOW (YELLOW); GLUCOSE, URINE (UA) NEGATIVE (NEGATIVE); KETONES,URINE NEGATIVE (NEGATIVE); LEUKOCYTE ESTERASE ,URINE NEGATIVE (NEGATIVE); NITRATE,URINE NEGATIVE (NEGATIVE); OCCULT BLOOD,URINE NEGATIVE (NEGATIVE); PROTEIN,URINE 30-70 mg/dL (NEGATIVE); SPECIFIC GRAVITIY, URINE 1.028 (1.003-1.030); UROBILINOGEN,URINE <=1.0 mg/dL (<=1.0)
[2022-10-19] MEDS: MetroNIDAZOLE 500 MG TABLET PO SCH (17:02)
[2022-10-19 17:22] LABS: BACTERIA,URINE None Seen /HPF (None Seen); MUCUS,URINE Few LPF (None Seen); RBC,URINE 0-2 /HPF (0-2); SQUAMOUS EPITHELIAL CELL,UR None Seen /LPF (None Seen); WBC,URINE None Seen /HPF (0-5)
[2022-10-19] MEDS: SODIUM CHLORIDE 0.45% 1,000 ML IV SCH (22:06)
[2022-10-20] VITALS (25 sets, daily range): BP systolic 103–130; BP diastolic 53–65; PULSE 59–98; RESP 21–30; TEMP 99–101; O2SAT 93–100
[2022-10-20] MEDS: HEPARIN SODIUM,PORCINE 5,000 UNITS/ML VIAL SQ SCH ×3 (00:16→16:40)
[2022-10-20] MEDS: VANCOMYCIN HCL 750 MG in DEXTROSE 5%-WATER 250 ML IV SCH ×3 (00:16→19:58)
[2022-10-20] MEDS: MetroNIDAZOLE 500 MG TABLET PO SCH ×3 (00:16→16:40)
[2022-10-20] MEDS: IPRATROPIUM BROMIDE 0.5 MG/2.5 ML NEB SOLUTION NEB SCH ×4 (01:55→20:02)
[2022-10-20] MEDS: ALBUTEROL SULFATE 2.5 MG/0.5 ML NEB SOLUTION NEB SCH ×4 (01:55→20:01)
[2022-10-20] MEDS: DEXMEDETOMIDINE HCL 400 MCG in SODIUM CHLORIDE 0.9% 96 ML IV PRN (03:46)
[2022-10-20] MEDS: AZITHROMYCIN 500 MG/NS 250 ML IV SCH (03:53)
[2022-10-20] MEDS: PROPOFOL 1000 MG/ISO-OSM 100 ML IV PRN (05:08)
[2022-10-20] MEDS: ALBUMIN HUMAN 25%-25GM/100ML 100 ML IV SCH ×4 (05:08→22:45)
[2022-10-20] MEDS: ACETAMINOPHEN 325 MG TABLET PO PRN ×4 (05:09→17:44)
[2022-10-20 05:23] LABS: ANION GAP 4 mmol/L (8-16); CARBON DIOXIDE 30 mmol/L (22-29); CHLORIDE 100 mmol/L (98-107); GLOMERULAR FILTR. RATE CALC > 60 mL/min (>60); GLUCOSE,RANDOM 130 mg/dL (70-110); POTASSIUM 3.6 mmol/L (3.5-5.1); SODIUM SERUM 134 mmol/L (136-145); UREA NITROGEN, BLOOD 19 mg/dL (7-18)
[2022-10-20] MEDS: BUDESONIDE 0.5 MG/2 ML NEB SOLUTION NEB SCH ×2 (08:09→20:02)
[2022-10-20] MEDS: CefTRIAXone 1 GM/DEXTROSE 50 ML IV SCH (09:02)
[2022-10-20] MEDS: PANTOPRAZOLE SODIUM 40 MG/VIAL IVP SCH (09:03)
[2022-10-20] MEDS: DOCUSATE SODIUM 100 MG CAPSULE PO SCH ×2 (09:03→21:00)
[2022-10-20] MEDS: ETHYL ALCOHOL 62% ANTISEPTIC NASAL SANITIZER 0.6 ML AMPUL NASAL SCH ×2 (09:08→22:45)
[2022-10-20] MEDS: FentaNYL CIT 1000MCG/0.9% NACL 100 ML IV PRN (13:05)
[2022-10-20 17:03] LABS: ABG BASE EXCESS -0.8 mmol/L (-2.0-3.0); ABG CARBOXYHEMOGLOBIN 0.6 % (0.0-1.5); ABG HCO3 23.6 mmol/L (22.0-26.0); ABG METHEMOGLOBIN 0.3 % (0.0-1.5); ABG OXYGEN CONTENT 14.8 mL/dL (15.0-23.0); ABG OXYGEN SATURATION 94.2 % (95.0-98.0); ABG OXYHEMOGLOBIN 93.4 % (94.0-100.0); ABG PCO2 49 mmHg (35-45); ABG PH 7.326 (7.35-7.450); ABG TOTAL HEMOGLOBIN 11.2 G/dL (12.0-18.0); PO2, ARTERIAL BG 85.2 mmHg (75.0-83.0); SOURCE, BLOOD GAS ARTERIAL; TEMPERATURE, FAHRENHEIT, BG 100.5 FAHREN (96.0-98.6)
[2022-10-20 17:04] LABS: ALLEN TEST, BLOOD GAS Positive; O2 DEVICE,BLOOD GAS VENTILATOR (ROOM AIR); PEEP,BG 5 cm H2O; PRESSURE SUPPORT, BG 5 cm H2O; SITE, BLOOD GAS LFT RADIAL; SPONTANEOUS VT, BG 454 ml; VENT MODE, BG Press. Support Vent. (ROOM AIR)
[2022-10-20] MEDS: SODIUM CHLORIDE 0.45% 1,000 ML IV SCH (19:59)
[2022-10-21] VITALS (20 sets, daily range): BP systolic 116–127; BP diastolic 54–67; PULSE 57–153; RESP 24–26; TEMP 98.2–100.9; O2SAT 91–100
[2022-10-21] MEDS: HEPARIN SODIUM,PORCINE 5,000 UNITS/ML VIAL SQ SCH ×4 (00:56→23:37)
[2022-10-21] MEDS: MetroNIDAZOLE 500 MG TABLET PO SCH ×4 (00:56→23:37)
[2022-10-21] MEDS: PROPOFOL 1000 MG/ISO-OSM 100 ML IV PRN ×4 (01:51→22:10)
[2022-10-21] MEDS: IPRATROPIUM BROMIDE 0.5 MG/2.5 ML NEB SOLUTION NEB SCH ×4 (02:11→21:31)
[2022-10-21] MEDS: ALBUTEROL SULFATE 2.5 MG/0.5 ML NEB SOLUTION NEB SCH ×4 (02:11→21:31)
[2022-10-21] MEDS: ALBUMIN HUMAN 25%-25GM/100ML 100 ML IV SCH ×4 (04:43→21:17)
[2022-10-21 05:13] LABS: BASOPHILS % (AUTO) 0.3 % (0.0-2.0); EOSINOPHILS % (AUTO) 1.1 % (1.0-6.0); HEMATOCRIT 28.4 % (36-46); HEMOGLOBIN 9.2 g/dL (12.0-16.0); LYMPHOCYTES # (AUTO) 1.1 K/uL (1.0-4.8); LYMPHOCYTES % (AUTO) 7.7 % (22.0-44.0); MEAN CORPUSCULAR HEMOGLOBIN 27.7 pg (26.0-34.0); MEAN CORPUSCULAR HGB CONC 32.4 G/dL (31.0-37.0); MEAN CORPUSCULAR VOLUME 85 fL (80-100); MONOCYTES # (AUTO) 1.4 K/uL (0.1-1.0); NEUTROPHILS # (AUTO) 11.5 K/uL (1.8-7.7); NEUTROPHILS % (AUTO) 80.9 % (40.0-70.0); PLATELET COUNT (AUTO) 301 K/uL (150-450); RED BLOOD CELL COUNT(AUTO) 3.32 MIL/uL (4.00-5.20); RED CELL DISTRIBUTION WIDTH 18.3 % (11.5-14.5); WHITE BLOOD COUNT (AUTO) 14.2 K/uL (4.5-11.0)
[2022-10-21 05:19] LABS: ANION GAP 7 mmol/L (8-16); CARBON DIOXIDE 30 mmol/L (22-29); CHLORIDE 101 mmol/L (98-107); CREATININE 0.49 mg/dL (0.60-1.30); GLOMERULAR FILTR. RATE CALC > 60 mL/min (>60); GLUCOSE,RANDOM 124 mg/dL (70-110); POTASSIUM 3.4 mmol/L (3.5-5.1); SODIUM SERUM 138 mmol/L (136-145); UREA NITROGEN, BLOOD 18 mg/dL (7-18)
[2022-10-21] MEDS: CefTRIAXone 1 GM/DEXTROSE 50 ML IV SCH (07:58)
[2022-10-21] MEDS: PANTOPRAZOLE SODIUM 40 MG/VIAL IVP SCH (07:59)
[2022-10-21] MEDS: ETHYL ALCOHOL 62% ANTISEPTIC NASAL SANITIZER 0.6 ML AMPUL NASAL SCH ×2 (08:00→20:48)
[2022-10-21] MEDS: VANCOMYCIN HCL 750 MG in DEXTROSE 5%-WATER 250 ML IV SCH (08:00)
[2022-10-21] MEDS: DOCUSATE SODIUM 100 MG CAPSULE PO SCH ×2 (08:00→20:47)
[2022-10-21] MEDS: BUDESONIDE 0.5 MG/2 ML NEB SOLUTION NEB SCH ×2 (08:38→21:31)
[2022-10-21] MEDS ORDERED: POTASSIUM CHLORIDE 20 MEQ ER TABLET PO PRN (08:45)
[2022-10-21] MEDS: POTASSIUM CHL 10 MEQ/WATER 50 ML IV PRN (09:49)
[2022-10-21] MEDS: DEXMEDETOMIDINE HCL 400 MCG in SODIUM CHLORIDE 0.9% 96 ML IV PRN ×3 (11:15→22:56)
[2022-10-21] MEDS: ACETAMINOPHEN 325 MG TABLET PO PRN (13:44)
[2022-10-21] MEDS ORDERED: IOHEXOL 350 MG/ML 100 ML VIAL ONE (15:05)
[2022-10-21] MEDS ORDERED: SODIUM CHLORIDE 0.9% 100 ML ONE (15:05)
[2022-10-21] MEDS ORDERED: VANCOMYCIN HCL 750 MG in DEXTROSE 5%-WATER 250 ML IV SCH (16:00)
[2022-10-21] MEDS ORDERED: DILTIAZEM HCL 5 MG/ML 5 ML VIAL IVP STA (20:07)
[2022-10-21] MEDS: SODIUM CHLORIDE 0.45% 1,000 ML IV SCH (20:47)
[2022-10-21] MEDS ORDERED: ADENOSINE 3 MG/ML 2 ML VIAL IVP STA ×2 (21:58→22:22)
[2022-10-21] MEDS: FentaNYL CIT 1000MCG/0.9% NACL 100 ML IV PRN (22:09)
[2022-10-21] MEDS: DILTIAZEM HCL 125 MG in DEXTROSE 5%-WATER 100 ML IV PRN (22:55)
[2022-10-22] VITALS (24 sets, daily range): BP systolic 100–120; BP diastolic 56–70; PULSE 75–117; RESP 24–26; TEMP 99.1–100.6; O2SAT 94–98
[2022-10-22] MEDS: IPRATROPIUM BROMIDE 0.5 MG/2.5 ML NEB SOLUTION NEB SCH ×4 (02:39→19:34)
[2022-10-22] MEDS: ALBUTEROL SULFATE 2.5 MG/0.5 ML NEB SOLUTION NEB SCH ×4 (02:40→19:34)
[2022-10-22] MEDS: ALBUMIN HUMAN 25%-25GM/100ML 100 ML IV SCH ×4 (03:26→21:11)
[2022-10-22] MEDS: PROPOFOL 1000 MG/ISO-OSM 100 ML IV PRN ×4 (03:26→18:27)
[2022-10-22 05:22] LABS: BASOPHILS % (AUTO) 0.2 % (0.0-2.0); EOSINOPHILS % (AUTO) 1.3 % (1.0-6.0); HEMATOCRIT 28.4 % (36-46); HEMOGLOBIN 9.1 g/dL (12.0-16.0); LYMPHOCYTES # (AUTO) 1.8 K/uL (1.0-4.8); LYMPHOCYTES % (AUTO) 15.9 % (22.0-44.0); MEAN CORPUSCULAR HEMOGLOBIN 27.2 pg (26.0-34.0); MEAN CORPUSCULAR HGB CONC 31.9 G/dL (31.0-37.0); MEAN CORPUSCULAR VOLUME 85 fL (80-100); MONOCYTES # (AUTO) 0.9 K/uL (0.1-1.0); MONOCYTES % (AUTO) 7.5 % (2.0-9.0); NEUTROPHILS # (AUTO) 8.6 K/uL (1.8-7.7); NEUTROPHILS % (AUTO) 75.1 % (40.0-70.0); PLATELET COUNT (AUTO) 313 K/uL (150-450); RED BLOOD CELL COUNT(AUTO) 3.32 MIL/uL (4.00-5.20); RED CELL DISTRIBUTION WIDTH 18.4 % (11.5-14.5); WHITE BLOOD COUNT (AUTO) 11.5 K/uL (4.5-11.0)
[2022-10-22 05:29] LABS: ANION GAP 9 mmol/L (8-16); CALCIUM, TOTAL 9.1 mg/dL (8.8-10.5); CARBON DIOXIDE 28 mmol/L (22-29); CHLORIDE 103 mmol/L (98-107); CREATININE 0.42 mg/dL (0.60-1.30); GLOMERULAR FILTR. RATE CALC > 60 mL/min (>60); GLUCOSE,RANDOM 134 mg/dL (70-110); POTASSIUM 3.7 mmol/L (3.5-5.1); SODIUM SERUM 140 mmol/L (136-145); UREA NITROGEN, BLOOD 22 mg/dL (7-18)
[2022-10-22] MEDS: DEXMEDETOMIDINE HCL 400 MCG in SODIUM CHLORIDE 0.9% 96 ML IV PRN ×3 (05:56→22:56)
[2022-10-22] MEDS: BUDESONIDE 0.5 MG/2 ML NEB SOLUTION NEB SCH ×2 (08:10→19:33)
[2022-10-22] MEDS ORDERED: BISACODYL 10 MG RECTAL RECTAL SUPPOSITORY PR PRN (08:15)
[2022-10-22] MEDS: PANTOPRAZOLE SODIUM 40 MG/VIAL IVP SCH (08:28)
[2022-10-22] MEDS: ETHYL ALCOHOL 62% ANTISEPTIC NASAL SANITIZER 0.6 ML AMPUL NASAL SCH ×2 (08:28→20:21)
[2022-10-22] MEDS: MetroNIDAZOLE 500 MG TABLET PO SCH ×3 (08:29→23:01)
[2022-10-22] MEDS: HEPARIN SODIUM,PORCINE 5,000 UNITS/ML VIAL SQ SCH ×3 (08:29→23:01)
[2022-10-22] MEDS: DILTIAZEM HCL 125 MG in DEXTROSE 5%-WATER 100 ML IV PRN (08:31)
[2022-10-22] MEDS: METOCLOPRAMIDE HCL 5 MG/ML 2 ML VIAL IVP SCH ×3 (08:34→23:01)
[2022-10-22] MEDS: DOCUSATE SODIUM 100 MG CAPSULE PO SCH ×2 (09:00→20:21)
[2022-10-22] MEDS: DOCUSATE SODIUM 100 MG/10 ML LIQUID UDCUP NG SCH ×2 (09:40→20:21)
[2022-10-22] MEDS: CefTRIAXone 1 GM/DEXTROSE 50 ML IV SCH (09:41)
[2022-10-22] MEDS ORDERED: AMIODARONE HCL 150 MG in DEXTROSE 5%-WATER 97 ML IV ONE (10:45)
[2022-10-22] MEDS: AMIODARONE HCL 200 MG TABLET PO SCH ×2 (11:43→20:21)
[2022-10-22] MEDS: ACETAMINOPHEN 325 MG TABLET PO PRN ×2 (13:00→20:21)
[2022-10-22] MEDS: FentaNYL CIT 1000MCG/0.9% NACL 100 ML IV PRN (15:20)
[2022-10-22] MEDS: SODIUM CHLORIDE 0.45% 1,000 ML IV SCH (18:27)
[2022-10-23] VITALS (21 sets, daily range): BP systolic 107–138; BP diastolic 53–76; PULSE 69–144; RESP 24–32; TEMP 97.8–101.7; O2SAT 92–97
[2022-10-23] MEDS: FentaNYL CIT 1000MCG/0.9% NACL 100 ML IV PRN ×2 (00:32→14:18)
[2022-10-23] MEDS: PROPOFOL 1000 MG/ISO-OSM 100 ML IV PRN ×4 (01:24→18:06)
[2022-10-23] MEDS: ALBUTEROL SULFATE 2.5 MG/0.5 ML NEB SOLUTION NEB SCH ×4 (02:35→19:03)
[2022-10-23] MEDS: IPRATROPIUM BROMIDE 0.5 MG/2.5 ML NEB SOLUTION NEB SCH ×4 (02:35→19:03)
[2022-10-23] MEDS: ACETAMINOPHEN 325 MG TABLET PO PRN ×4 (03:08→23:32)
[2022-10-23] MEDS: ALBUMIN HUMAN 25%-25GM/100ML 100 ML IV SCH ×4 (03:08→21:37)
[2022-10-23] MEDS: DILTIAZEM HCL 125 MG in DEXTROSE 5%-WATER 100 ML IV PRN (05:52)
[2022-10-23] MEDS: DEXMEDETOMIDINE HCL 400 MCG in SODIUM CHLORIDE 0.9% 96 ML IV PRN ×2 (05:53→15:31)
[2022-10-23 08:23] LABS: BASOPHILS % (AUTO) 0.6 % (0.0-2.0); EOSINOPHILS % (AUTO) 0.7 % (1.0-6.0); HEMATOCRIT 29.4 % (36-46); HEMOGLOBIN 9.4 g/dL (12.0-16.0); LYMPHOCYTES # (AUTO) 1.5 K/uL (1.0-4.8); LYMPHOCYTES % (AUTO) 10.4 % (22.0-44.0); MEAN CORPUSCULAR HEMOGLOBIN 27.7 pg (26.0-34.0); MEAN CORPUSCULAR VOLUME 87 fL (80-100); MONOCYTES # (AUTO) 1.5 K/uL (0.1-1.0); MONOCYTES % (AUTO) 10.2 % (2.0-9.0); NEUTROPHILS # (AUTO) 11.4 K/uL (1.8-7.7); NEUTROPHILS % (AUTO) 78.1 % (40.0-70.0); PLATELET COUNT (AUTO) 295 K/uL (150-450); RED BLOOD CELL COUNT(AUTO) 3.39 MIL/uL (4.00-5.20); RED CELL DISTRIBUTION WIDTH 18.8 % (11.5-14.5); WHITE BLOOD COUNT (AUTO) 14.6 K/uL (4.5-11.0)
[2022-10-23 08:29] LABS: ANION GAP 11 mmol/L (8-16); CARBON DIOXIDE 26 mmol/L (22-29); CHLORIDE 100 mmol/L (98-107); CREATININE 0.57 mg/dL (0.60-1.30); GLOMERULAR FILTR. RATE CALC > 60 mL/min (>60); GLUCOSE,RANDOM 111 mg/dL (70-110); POTASSIUM 4.3 mmol/L (3.5-5.1); SODIUM SERUM 137 mmol/L (136-145); UREA NITROGEN, BLOOD 33 mg/dL (7-18)
[2022-10-23] MEDS: PANTOPRAZOLE SODIUM 40 MG/VIAL IVP SCH (08:31)
[2022-10-23] MEDS: DOCUSATE SODIUM 100 MG CAPSULE PO SCH (08:31)
[2022-10-23] MEDS: DOCUSATE SODIUM 100 MG/10 ML LIQUID UDCUP NG SCH ×2 (08:31→20:13)
[2022-10-23] MEDS: ETHYL ALCOHOL 62% ANTISEPTIC NASAL SANITIZER 0.6 ML AMPUL NASAL SCH ×2 (08:31→20:13)
[2022-10-23] MEDS: MetroNIDAZOLE 500 MG TABLET PO SCH ×3 (08:32→23:31)
[2022-10-23] MEDS: AMIODARONE HCL 200 MG TABLET PO SCH ×2 (08:32→20:13)
[2022-10-23] MEDS: HEPARIN SODIUM,PORCINE 5,000 UNITS/ML VIAL SQ SCH ×3 (08:32→23:24)
[2022-10-23] MEDS: METOCLOPRAMIDE HCL 5 MG/ML 2 ML VIAL IVP SCH ×3 (08:33→23:25)
[2022-10-23] MEDS: CefTRIAXone 1 GM/DEXTROSE 50 ML IV SCH (08:34)
[2022-10-23] MEDS: BUDESONIDE 0.5 MG/2 ML NEB SOLUTION NEB SCH ×2 (08:47→19:03)
[2022-10-23] MEDS ORDERED: LORazepam 2 MG/ML VIAL IM ONE (10:00)
[2022-10-23] MEDS ORDERED: LORazepam 2 MG/ML VIAL IVP ONE (10:15)
[2022-10-23] MEDS ORDERED: AMIODARONE HCL 360 MG in DEXTROSE 5%-WATER 242.8 ML IV ONE (10:30)
[2022-10-23] MEDS ORDERED: AMIODARONE HCL 150 MG in DEXTROSE 5%-WATER 97 ML IV ONE (10:30)
[2022-10-23] MEDS ORDERED: DIGOXIN 250 MCG/ML 2 ML AMP IVP ONE (15:15)
[2022-10-23] MEDS ORDERED: AMIODARONE HCL 540 MG in DEXTROSE 5%-WATER 239.2 ML IV ONE (16:30)
[2022-10-23] MEDS: SODIUM CHLORIDE 0.45% 1,000 ML IV SCH (18:08)
[2022-10-24] VITALS (21 sets, daily range): BP systolic 110–139; BP diastolic 62–86; PULSE 71–125; RESP 20–32; TEMP 99.6–101; O2SAT 95–100
[2022-10-24] MEDS: DEXMEDETOMIDINE HCL 400 MCG in SODIUM CHLORIDE 0.9% 96 ML IV PRN ×2 (01:13→11:08)
[2022-10-24] MEDS: ALBUTEROL SULFATE 2.5 MG/0.5 ML NEB SOLUTION NEB SCH ×4 (01:22→19:26)
[2022-10-24] MEDS: IPRATROPIUM BROMIDE 0.5 MG/2.5 ML NEB SOLUTION NEB SCH ×4 (01:22→19:26)
[2022-10-24] MEDS: ALBUMIN HUMAN 25%-25GM/100ML 100 ML IV SCH ×4 (03:58→22:09)
[2022-10-24] MEDS: ACETAMINOPHEN 325 MG TABLET PO PRN ×5 (04:00→22:13)
[2022-10-24 06:44] LABS: BASOPHILS % (AUTO) 0.2 % (0.0-2.0); EOSINOPHILS % (AUTO) 0.3 % (1.0-6.0); HEMATOCRIT 28.9 % (36-46); LYMPHOCYTES # (AUTO) 1.4 K/uL (1.0-4.8); LYMPHOCYTES % (AUTO) 7.2 % (22.0-44.0); MEAN CORPUSCULAR HEMOGLOBIN 26.7 pg (26.0-34.0); MEAN CORPUSCULAR HGB CONC 31.3 G/dL (31.0-37.0); MEAN CORPUSCULAR VOLUME 85 fL (80-100); MONOCYTES # (AUTO) 1.2 K/uL (0.1-1.0); MONOCYTES % (AUTO) 6.2 % (2.0-9.0); NEUTROPHILS # (AUTO) 17.1 K/uL (1.8-7.7); PLATELET COUNT (AUTO) 327 K/uL (150-450); RED BLOOD CELL COUNT(AUTO) 3.38 MIL/uL (4.00-5.20); RED CELL DISTRIBUTION WIDTH 19.1 % (11.5-14.5); WHITE BLOOD COUNT (AUTO) 19.9 K/uL (4.5-11.0)
[2022-10-24 07:00] LABS: NEUTROPHILS % (AUTO) 86.1 % (40.0-70.0)
[2022-10-24] MEDS: MetroNIDAZOLE 500 MG TABLET PO SCH ×2 (08:00→16:35)
[2022-10-24] MEDS: BUDESONIDE 0.5 MG/2 ML NEB SOLUTION NEB SCH ×2 (08:25→19:26)
[2022-10-24 08:26] LABS: ANION GAP 9 mmol/L (8-16); CALCIUM, TOTAL 9.2 mg/dL (8.8-10.5); CARBON DIOXIDE 27 mmol/L (22-29); CHLORIDE 102 mmol/L (98-107); CREATININE 0.57 mg/dL (0.60-1.30); GLOMERULAR FILTR. RATE CALC > 60 mL/min (>60); GLUCOSE,RANDOM 104 mg/dL (70-110); POTASSIUM 4.2 mmol/L (3.5-5.1); SODIUM SERUM 138 mmol/L (136-145); UREA NITROGEN, BLOOD 35 mg/dL (7-18)
[2022-10-24] MEDS: PROPOFOL 1000 MG/ISO-OSM 100 ML IV PRN ×2 (08:30→17:20)
[2022-10-24] MEDS: METOCLOPRAMIDE HCL 5 MG/ML 2 ML VIAL IVP SCH ×2 (09:02→16:33)
[2022-10-24] MEDS: HEPARIN SODIUM,PORCINE 5,000 UNITS/ML VIAL SQ SCH ×2 (09:05→16:31)
[2022-10-24] MEDS: PANTOPRAZOLE SODIUM 40 MG/VIAL IVP SCH (09:06)
[2022-10-24] MEDS: DOCUSATE SODIUM 100 MG/10 ML LIQUID UDCUP NG SCH ×2 (09:09→20:12)
[2022-10-24] MEDS: CefTRIAXone 1 GM/DEXTROSE 50 ML IV SCH (09:59)
[2022-10-24] MEDS: ETHYL ALCOHOL 62% ANTISEPTIC NASAL SANITIZER 0.6 ML AMPUL NASAL SCH ×2 (10:02→20:12)
[2022-10-24] MEDS: FentaNYL CIT 1000MCG/0.9% NACL 100 ML IV PRN ×2 (10:58→20:15)
[2022-10-24] MEDS: AMIODARONE HCL 750 MG in DEXTROSE 5%-WATER 485 ML IV SCH (11:08)
[2022-10-24] MEDS: SODIUM CHLORIDE 0.45% 1,000 ML IV SCH (20:11)
[2022-10-25] VITALS (22 sets, daily range): BP systolic 118–156; BP diastolic 66–83; PULSE 57–128; RESP 19–30; TEMP 99.3–100.4; O2SAT 94–100
[2022-10-25] MEDS: MetroNIDAZOLE 500 MG TABLET PO SCH ×3 (00:17→17:26)
[2022-10-25] MEDS: HEPARIN SODIUM,PORCINE 5,000 UNITS/ML VIAL SQ SCH ×3 (00:17→17:26)
[2022-10-25] MEDS: METOCLOPRAMIDE HCL 5 MG/ML 2 ML VIAL IVP SCH ×3 (00:17→17:26)
[2022-10-25] MEDS: PROPOFOL 1000 MG/ISO-OSM 100 ML IV PRN (00:18)
[2022-10-25] MEDS: DEXMEDETOMIDINE HCL 400 MCG in SODIUM CHLORIDE 0.9% 96 ML IV PRN ×4 (00:19→18:41)
[2022-10-25] MEDS: IPRATROPIUM BROMIDE 0.5 MG/2.5 ML NEB SOLUTION NEB SCH ×4 (01:25→19:30)
[2022-10-25] MEDS: ALBUTEROL SULFATE 2.5 MG/0.5 ML NEB SOLUTION NEB SCH ×4 (01:25→19:30)
[2022-10-25] MEDS: ALBUMIN HUMAN 25%-25GM/100ML 100 ML IV SCH ×3 (04:14→17:25)
[2022-10-25 05:31] LABS: BASOPHILS % (AUTO) 0.8 % (0.0-2.0); EOSINOPHILS % (AUTO) 0.3 % (1.0-6.0); HEMATOCRIT 28.3 % (36-46); HEMOGLOBIN 8.9 g/dL (12.0-16.0); LYMPHOCYTES # (AUTO) 1.5 K/uL (1.0-4.8); LYMPHOCYTES % (AUTO) 7.8 % (22.0-44.0); MEAN CORPUSCULAR HEMOGLOBIN 26.8 pg (26.0-34.0); MEAN CORPUSCULAR HGB CONC 31.5 G/dL (31.0-37.0); MEAN CORPUSCULAR VOLUME 85 fL (80-100); MONOCYTES % (AUTO) 5.1 % (2.0-9.0); NEUTROPHILS # (AUTO) 17.1 K/uL (1.8-7.7); PLATELET COUNT (AUTO) 288 K/uL (150-450); RED BLOOD CELL COUNT(AUTO) 3.34 MIL/uL (4.00-5.20); RED CELL DISTRIBUTION WIDTH 18.5 % (11.5-14.5); WHITE BLOOD COUNT (AUTO) 19.9 K/uL (4.5-11.0)
[2022-10-25] MEDS: FentaNYL CIT 1000MCG/0.9% NACL 100 ML IV PRN ×2 (05:36→18:22)
[2022-10-25 05:43] LABS: ALANINE AMINOTRANSFERASE 8 U/L (12-78); ALBUMIN 4.2 g/dL (3.4-5.0); ALKALINE PHOSPHATASE 77 U/L (46-116); ANION GAP 9 mmol/L (8-16); ASPARTATE AMINOTRANSFERASE 11 U/L (15-37); BILIRUBIN,TOTAL 0.7 mg/dL (0.1-1.0); CALCIUM, TOTAL 9.3 mg/dL (8.8-10.5); CARBON DIOXIDE 26 mmol/L (22-29); CHLORIDE 101 mmol/L (98-107); CREATININE 0.49 mg/dL (0.60-1.30); GLOMERULAR FILTR. RATE CALC > 60 mL/min (>60); GLUCOSE,RANDOM 112 mg/dL (70-110); SODIUM SERUM 136 mmol/L (136-145); TOTAL PROTEIN, SERUM 6.1 g/dL (6.4-8.2); UREA NITROGEN, BLOOD 26 mg/dL (7-18)
[2022-10-25] MEDS: BUDESONIDE 0.5 MG/2 ML NEB SOLUTION NEB SCH ×2 (07:32→19:30)
[2022-10-25] MEDS: ACETAMINOPHEN 325 MG TABLET PO PRN ×2 (07:37→12:45)
[2022-10-25] MEDS ORDERED: DIGOXIN 250 MCG/ML 2 ML AMP IVP ONE (08:15)
[2022-10-25] MEDS: DOCUSATE SODIUM 100 MG/10 ML LIQUID UDCUP NG SCH ×2 (08:31→20:36)
[2022-10-25] MEDS: PANTOPRAZOLE SODIUM 40 MG/VIAL IVP SCH (08:31)
[2022-10-25] MEDS: CefTRIAXone 1 GM/DEXTROSE 50 ML IV SCH (08:32)
[2022-10-25] MEDS: ETHYL ALCOHOL 62% ANTISEPTIC NASAL SANITIZER 0.6 ML AMPUL NASAL SCH ×2 (09:23→20:35)
[2022-10-25] MEDS: AMIODARONE HCL 750 MG in DEXTROSE 5%-WATER 485 ML IV SCH (10:28)
[2022-10-25 13:42] LABS: ABG BASE EXCESS -2.2 mmol/L (-2.0-3.0); ABG CARBOXYHEMOGLOBIN 0.6 % (0.0-1.5); ABG METHEMOGLOBIN 0.3 % (0.0-1.5); ABG OXYGEN SATURATION 85.1 % (95.0-98.0); ABG OXYHEMOGLOBIN 84.3 % (94.0-100.0); ABG PCO2 57 mmHg (35-45); ABG PH 7.257 (7.35-7.450); ABG TOTAL HEMOGLOBIN 10.9 G/dL (12.0-18.0); PO2, ARTERIAL BG 59.7 mmHg (75.0-83.0); SOURCE, BLOOD GAS ARTERIAL; TEMPERATURE, FAHRENHEIT, BG 99.4 FAHREN (96.0-98.6)
[2022-10-25 13:53] LABS: ABG A-A DIFF O2 159.4 mmHg (10-20.0); ALLEN TEST, BLOOD GAS Positive; O2 DEVICE,BLOOD GAS VENTILATOR (ROOM AIR); SITE, BLOOD GAS LFT RADIAL
[2022-10-25 13:54] LABS: PEEP,BG 0 cm H2O
[2022-10-25 13:55] LABS: PRESSURE SUPPORT, BG 5 cm H2O; SPONTANEOUS VT, BG 415 ml; VENT MODE, BG Press. Support Vent. (ROOM AIR)
[2022-10-25 15:25] LABS: INR 1.4 (0.9-1.1); PROTHROMBIN TIME 14.6 SEC (9.4-11.6)
[2022-10-25] MEDS: SODIUM CHLORIDE 0.45% 1,000 ML IV SCH (20:35)
[2022-10-26] VITALS (27 sets, daily range): BP systolic 101–135; BP diastolic 56–73; PULSE 53–116; RESP 18–28; TEMP 98.5–99.7; O2SAT 93–100
[2022-10-26] MEDS: ALBUMIN HUMAN 25%-25GM/100ML 100 ML IV SCH ×5 (00:03→22:34)
[2022-10-26] MEDS: METOCLOPRAMIDE HCL 5 MG/ML 2 ML VIAL IVP SCH ×3 (00:03→15:07)
[2022-10-26] MEDS: MetroNIDAZOLE 500 MG TABLET PO SCH ×3 (00:04→15:06)
[2022-10-26] MEDS: HEPARIN SODIUM,PORCINE 5,000 UNITS/ML VIAL SQ SCH ×3 (00:06→15:07)
[2022-10-26] MEDS: PROPOFOL 1000 MG/ISO-OSM 100 ML IV PRN ×5 (00:10→20:03)
[2022-10-26] MEDS: ALBUTEROL SULFATE 2.5 MG/0.5 ML NEB SOLUTION NEB SCH ×4 (01:55→20:15)
[2022-10-26] MEDS: IPRATROPIUM BROMIDE 0.5 MG/2.5 ML NEB SOLUTION NEB SCH ×4 (01:55→20:15)
[2022-10-26] MEDS: FentaNYL CIT 1000MCG/0.9% NACL 100 ML IV PRN ×3 (05:05→20:03)
[2022-10-26 06:18] LABS: BASOPHILS % (AUTO) 0.4 % (0.0-2.0); EOSINOPHILS % (AUTO) 0.5 % (1.0-6.0); HEMATOCRIT 27.6 % (36-46); HEMOGLOBIN 8.8 g/dL (12.0-16.0); LYMPHOCYTES # (AUTO) 1.4 K/uL (1.0-4.8); LYMPHOCYTES % (AUTO) 10.4 % (22.0-44.0); MEAN CORPUSCULAR HGB CONC 31.8 G/dL (31.0-37.0); MEAN CORPUSCULAR VOLUME 85 fL (80-100); MONOCYTES % (AUTO) 7.3 % (2.0-9.0); NEUTROPHILS # (AUTO) 11.3 K/uL (1.8-7.7); NEUTROPHILS % (AUTO) 81.4 % (40.0-70.0); PLATELET COUNT (AUTO) 359 K/uL (150-450); RED BLOOD CELL COUNT(AUTO) 3.24 MIL/uL (4.00-5.20); RED CELL DISTRIBUTION WIDTH 19.2 % (11.5-14.5); WHITE BLOOD COUNT (AUTO) 13.8 K/uL (4.5-11.0)
[2022-10-26] MEDS: PANTOPRAZOLE SODIUM 40 MG/VIAL IVP SCH (07:59)
[2022-10-26] MEDS: DOCUSATE SODIUM 100 MG/10 ML LIQUID UDCUP NG SCH ×2 (08:00→20:38)
[2022-10-26] MEDS: ETHYL ALCOHOL 62% ANTISEPTIC NASAL SANITIZER 0.6 ML AMPUL NASAL SCH ×2 (08:01→20:05)
[2022-10-26] MEDS: CefTRIAXone 1 GM/DEXTROSE 50 ML IV SCH (08:02)
[2022-10-26] MEDS: BUDESONIDE 0.5 MG/2 ML NEB SOLUTION NEB SCH ×2 (08:11→20:16)
[2022-10-26 08:35] LABS: ANION GAP 9 mmol/L (8-16); CALCIUM, TOTAL 8.8 mg/dL (8.8-10.5); CARBON DIOXIDE 27 mmol/L (22-29); CHLORIDE 105 mmol/L (98-107); CREATININE 0.44 mg/dL (0.60-1.30); GLOMERULAR FILTR. RATE CALC > 60 mL/min (>60); GLUCOSE,RANDOM 109 mg/dL (70-110); SODIUM SERUM 141 mmol/L (136-145); UREA NITROGEN, BLOOD 32 mg/dL (7-18)
[2022-10-26] MEDS: AMIODARONE HCL 750 MG in DEXTROSE 5%-WATER 485 ML IV SCH (10:06)
[2022-10-26 10:44] LABS: ABG BASE EXCESS -0.2 mmol/L (-2.0-3.0); ABG CARBOXYHEMOGLOBIN 0.6 % (0.0-1.5); ABG HCO3 23.6 mmol/L (22.0-26.0); ABG METHEMOGLOBIN 0.3 % (0.0-1.5); ABG OXYHEMOGLOBIN 81.9 % (94.0-100.0); ABG PCO2 57 mmHg (35-45); ABG PH 7.287 (7.35-7.450); ABG TOTAL HEMOGLOBIN 10.4 G/dL (12.0-18.0); SOURCE, BLOOD GAS ARTERIAL; TEMPERATURE, FAHRENHEIT, BG 99.7 FAHREN (96.0-98.6)
[2022-10-26 10:47] LABS: ABG A-A DIFF O2 164.2 mmHg (10-20.0); ABG OXYGEN SATURATION 82.6 % (95.0-98.0); ALLEN TEST, BLOOD GAS Positive; CPAP, BG 0 cm H2O; O2 DEVICE,BLOOD GAS VENTILATOR (ROOM AIR); PRESSURE SUPPORT, BG 8 cm H2O; SITE, BLOOD GAS LFT RADIAL; SPONTANEOUS VT, BG 399 ml; VENT MODE, BG CPAP (ROOM AIR)
[2022-10-26] MEDS ORDERED: VANCOMYCIN 1GM/WATER(PEG/NADA) 200 ML IV ONE (16:00)
[2022-10-26] MEDS: SODIUM CHLORIDE 0.45% 1,000 ML IV SCH (20:02)
[2022-10-26] MEDS: DEXMEDETOMIDINE HCL 400 MCG in SODIUM CHLORIDE 0.9% 96 ML IV PRN (20:05)
[2022-10-26] MEDS ORDERED: SODIUM CHLORIDE 0.9% 250 ML IV ONE (20:23)
[2022-10-27] VITALS (25 sets, daily range): BP systolic 108–148; BP diastolic 53–78; PULSE 48–70; RESP 16–25; TEMP 98.7–99.4; O2SAT 90–97
[2022-10-27] MEDS: MetroNIDAZOLE 500 MG TABLET PO SCH ×4 (00:31→23:46)
[2022-10-27] MEDS: VANCOMYCIN HCL 500 MG in DEXTROSE 5%-WATER 100 ML IV SCH ×4 (00:31→23:47)
[2022-10-27] MEDS: HEPARIN SODIUM,PORCINE 5,000 UNITS/ML VIAL SQ SCH ×4 (00:31→23:46)
[2022-10-27] MEDS: METOCLOPRAMIDE HCL 5 MG/ML 2 ML VIAL IVP SCH ×4 (00:32→23:46)
[2022-10-27] MEDS: IPRATROPIUM BROMIDE 0.5 MG/2.5 ML NEB SOLUTION NEB SCH ×4 (02:10→19:21)
[2022-10-27] MEDS: ALBUTEROL SULFATE 2.5 MG/0.5 ML NEB SOLUTION NEB SCH ×4 (02:10→19:21)
[2022-10-27] MEDS: PROPOFOL 1000 MG/ISO-OSM 100 ML IV PRN ×4 (02:41→23:45)
[2022-10-27] MEDS: FentaNYL CIT 1000MCG/0.9% NACL 100 ML IV PRN ×5 (02:42→23:46)
[2022-10-27] MEDS: ALBUMIN HUMAN 25%-25GM/100ML 100 ML IV SCH ×4 (04:04→22:22)
[2022-10-27] MEDS: DEXMEDETOMIDINE HCL 400 MCG in SODIUM CHLORIDE 0.9% 96 ML IV PRN ×4 (04:05→22:48)
[2022-10-27 05:44] LABS: BASOPHILS % (AUTO) 0.5 % (0.0-2.0); EOSINOPHILS % (AUTO) 1.1 % (1.0-6.0); HEMATOCRIT 25.7 % (36-46); LYMPHOCYTES # (AUTO) 1.4 K/uL (1.0-4.8); LYMPHOCYTES % (AUTO) 14.5 % (22.0-44.0); MEAN CORPUSCULAR HEMOGLOBIN 26.4 pg (26.0-34.0); MEAN CORPUSCULAR HGB CONC 31.1 G/dL (31.0-37.0); MEAN CORPUSCULAR VOLUME 85 fL (80-100); MONOCYTES # (AUTO) 0.7 K/uL (0.1-1.0); MONOCYTES % (AUTO) 6.9 % (2.0-9.0); NEUTROPHILS # (AUTO) 7.6 K/uL (1.8-7.7); PLATELET COUNT (AUTO) 399 K/uL (150-450); RED BLOOD CELL COUNT(AUTO) 3.03 MIL/uL (4.00-5.20); RED CELL DISTRIBUTION WIDTH 18.7 % (11.5-14.5); WHITE BLOOD COUNT (AUTO) 9.9 K/uL (4.5-11.0)
[2022-10-27 05:53] LABS: ANION GAP 14 mmol/L (8-16); CARBON DIOXIDE 27 mmol/L (22-29); CHLORIDE 102 mmol/L (98-107); CREATININE 0.53 mg/dL (0.60-1.30); GLOMERULAR FILTR. RATE CALC > 60 mL/min (>60); GLUCOSE,RANDOM 121 mg/dL (70-110); POTASSIUM 3.8 mmol/L (3.5-5.1); SODIUM SERUM 143 mmol/L (136-145); UREA NITROGEN, BLOOD 29 mg/dL (7-18)
[2022-10-27] MEDS: CefTRIAXone 1 GM/DEXTROSE 50 ML IV SCH (07:51)
[2022-10-27] MEDS: ETHYL ALCOHOL 62% ANTISEPTIC NASAL SANITIZER 0.6 ML AMPUL NASAL SCH ×2 (08:22→20:12)
[2022-10-27] MEDS: DOCUSATE SODIUM 100 MG/10 ML LIQUID UDCUP NG SCH ×2 (08:22→20:12)
[2022-10-27] MEDS: PANTOPRAZOLE SODIUM 40 MG/VIAL IVP SCH (08:22)
[2022-10-27] MEDS: BUDESONIDE 0.5 MG/2 ML NEB SOLUTION NEB SCH ×2 (08:37→19:21)
[2022-10-27] MEDS: AMIODARONE HCL 200 MG TABLET PO SCH ×2 (09:33→20:12)
[2022-10-27] MEDS ORDERED: LIDOCAINE/PF 1% 30 ML VIAL ONE (14:51)
[2022-10-27 16:55] LABS: SPECIMENTYPE,BODY FLUID THORACENTESIS
[2022-10-27 17:46] LABS: APPEARANCE,SPUN,BODY FLUID CLEAR (CLEAR); COLOR,BODY FLUID LT YELLOW (LT YELLOW)
[2022-10-27 17:47] LABS: BASOPHILS,BODY FLUID 0 %; EOSINOPHILS,BF (ANAL) 0 %; LYMPHOCYTES,BODY FLUID 57 %; MONOCYTES,BODY FLUID 18 %; NEUTROPHILS,BODY FLUID 24 %; TOTAL VOLUME,BODY FLUID 900 mL; WBC, BODY FLUID 78 /cu. mm.
[2022-10-27 17:48] LABS: OTHER CELLS,BODY FLUID 1; PH, BODY FLUID 7.5
[2022-10-27] MEDS: SODIUM CHLORIDE 0.45% 1,000 ML IV SCH (19:57)
[2022-10-28] VITALS (21 sets, daily range): BP systolic 135–166; BP diastolic 67–79; PULSE 40–78; RESP 17–26; TEMP 99–100.1; O2SAT 92–99
[2022-10-28] MEDS: ALBUTEROL SULFATE 2.5 MG/0.5 ML NEB SOLUTION NEB SCH ×4 (02:37→19:47)
[2022-10-28] MEDS: IPRATROPIUM BROMIDE 0.5 MG/2.5 ML NEB SOLUTION NEB SCH ×4 (02:37→19:47)
[2022-10-28] MEDS: ALBUMIN HUMAN 25%-25GM/100ML 100 ML IV SCH ×4 (03:01→21:01)
[2022-10-28] MEDS: PROPOFOL 1000 MG/ISO-OSM 100 ML IV PRN ×3 (04:24→16:40)
[2022-10-28] MEDS: FentaNYL CIT 1000MCG/0.9% NACL 100 ML IV PRN ×3 (04:25→18:22)
[2022-10-28 05:30] LABS: BASOPHILS % (AUTO) 0.5 % (0.0-2.0); EOSINOPHILS % (AUTO) 1.4 % (1.0-6.0); LYMPHOCYTES # (AUTO) 1.6 K/uL (1.0-4.8); MEAN CORPUSCULAR HEMOGLOBIN 26.5 pg (26.0-34.0); MEAN CORPUSCULAR VOLUME 86 fL (80-100); MONOCYTES # (AUTO) 0.8 K/uL (0.1-1.0); MONOCYTES % (AUTO) 8.3 % (2.0-9.0); NEUTROPHILS # (AUTO) 6.7 K/uL (1.8-7.7); NEUTROPHILS % (AUTO) 72.8 % (40.0-70.0); PLATELET COUNT (AUTO) 448 K/uL (150-450); RED BLOOD CELL COUNT(AUTO) 3.04 MIL/uL (4.00-5.20); RED CELL DISTRIBUTION WIDTH 18.4 % (11.5-14.5); WHITE BLOOD COUNT (AUTO) 9.2 K/uL (4.5-11.0)
[2022-10-28 05:46] LABS: ANION GAP 9 mmol/L (8-16); CALCIUM, TOTAL 9.2 mg/dL (8.8-10.5); CARBON DIOXIDE 28 mmol/L (22-29); CHLORIDE 107 mmol/L (98-107); CREATININE 0.37 mg/dL (0.60-1.30); GLOMERULAR FILTR. RATE CALC > 60 mL/min (>60); GLUCOSE,RANDOM 96 mg/dL (70-110); POTASSIUM 3.7 mmol/L (3.5-5.1); SODIUM SERUM 144 mmol/L (136-145); UREA NITROGEN, BLOOD 17 mg/dL (7-18); VANCOMYCIN,RANDOM 13.1 mcg/mL (25.0-50.0)
[2022-10-28] MEDS: DEXMEDETOMIDINE HCL 400 MCG in SODIUM CHLORIDE 0.9% 96 ML IV PRN ×4 (07:43→23:02)
[2022-10-28] MEDS: BUDESONIDE 0.5 MG/2 ML NEB SOLUTION NEB SCH ×2 (08:08→19:48)
[2022-10-28] MEDS: VANCOMYCIN HCL 750 MG in DEXTROSE 5%-WATER 250 ML IV SCH ×2 (08:55→15:56)
[2022-10-28] MEDS: CefTRIAXone 1 GM/DEXTROSE 50 ML IV SCH (08:58)
[2022-10-28] MEDS: ETHYL ALCOHOL 62% ANTISEPTIC NASAL SANITIZER 0.6 ML AMPUL NASAL SCH ×2 (08:59→21:00)
[2022-10-28] MEDS: ASPIRIN 81 MG CHEWABLE TABLET NG SCH (08:59)
[2022-10-28] MEDS: PANTOPRAZOLE SODIUM 40 MG/VIAL IVP SCH (08:59)
[2022-10-28] MEDS: DOCUSATE SODIUM 100 MG/10 ML LIQUID UDCUP NG SCH ×2 (08:59→21:00)
[2022-10-28] MEDS: MetroNIDAZOLE 500 MG TABLET PO SCH ×2 (09:00→15:57)
[2022-10-28] MEDS: METOCLOPRAMIDE HCL 5 MG/ML 2 ML VIAL IVP SCH ×2 (09:00→15:57)
[2022-10-28] MEDS: AMIODARONE HCL 200 MG TABLET PO SCH ×2 (09:00→21:00)
[2022-10-28] MEDS: HEPARIN SODIUM,PORCINE 5,000 UNITS/ML VIAL SQ SCH ×2 (09:00→15:57)
[2022-10-28] MEDS: ACETAMINOPHEN 325 MG TABLET PO PRN ×2 (09:22→17:23)
[2022-10-28 10:06] LABS: TOTAL PROTEIN,BODY FLUID,REF 3.1 g/dL
[2022-10-28 11:54] LABS: ABG BASE EXCESS -2.7 mmol/L (-2.0-3.0); ABG CARBOXYHEMOGLOBIN 0.4 % (0.0-1.5); ABG HCO3 22.2 mmol/L (22.0-26.0); ABG METHEMOGLOBIN 0.3 % (0.0-1.5); ABG OXYGEN CONTENT 12.7 mL/dL (15.0-23.0); ABG OXYHEMOGLOBIN 92.3 % (94.0-100.0); ABG PCO2 43 mmHg (35-45); ABG PH 7.343 (7.35-7.450); ABG TOTAL HEMOGLOBIN 9.7 G/dL (12.0-18.0); PO2, ARTERIAL BG 75.9 mmHg (75.0-83.0); SOURCE, BLOOD GAS ARTERIAL; TEMPERATURE, FAHRENHEIT, BG 100.2 FAHREN (96.0-98.6)
[2022-10-28 13:16] LABS: ABG A-A DIFF O2 158.6 mmHg (10-20.0); ALLEN TEST, BLOOD GAS Positive; CPAP, BG 5 cm H2O; O2 DEVICE,BLOOD GAS VENTILATOR (ROOM AIR); PRESSURE SUPPORT, BG 8 cm H2O; SITE, BLOOD GAS LFT RADIAL; SPONTANEOUS VT, BG 397 ml; VENT MODE, BG CPAP (ROOM AIR)
[2022-10-28] MEDS: SODIUM CHLORIDE 0.45% 1,000 ML IV SCH (19:35)
[2022-10-29] VITALS (25 sets, daily range): BP systolic 145–196; BP diastolic 61–89; PULSE 46–100; RESP 18–26; TEMP 98.8–100.2; O2SAT 90–99
[2022-10-29] MEDS: MetroNIDAZOLE 500 MG TABLET PO SCH ×4 (00:14→23:53)
[2022-10-29] MEDS: VANCOMYCIN HCL 750 MG in DEXTROSE 5%-WATER 250 ML IV SCH ×4 (00:14→23:52)
[2022-10-29] MEDS: METOCLOPRAMIDE HCL 5 MG/ML 2 ML VIAL IVP SCH ×4 (00:15→23:53)
[2022-10-29] MEDS: HEPARIN SODIUM,PORCINE 5,000 UNITS/ML VIAL SQ SCH ×4 (00:15→23:53)
[2022-10-29] MEDS: PROPOFOL 1000 MG/ISO-OSM 100 ML IV PRN ×5 (00:38→20:57)
[2022-10-29] MEDS ORDERED: SODIUM CHLORIDE 0.9% 250 ML IV ONE ×2 (01:30→08:19)
[2022-10-29] MEDS: FentaNYL CIT 1000MCG/0.9% NACL 100 ML IV PRN ×4 (01:32→21:01)
[2022-10-29] MEDS: ALBUTEROL SULFATE 2.5 MG/0.5 ML NEB SOLUTION NEB SCH ×4 (01:55→19:54)
[2022-10-29] MEDS: IPRATROPIUM BROMIDE 0.5 MG/2.5 ML NEB SOLUTION NEB SCH ×4 (01:55→19:54)
[2022-10-29] MEDS: ALBUMIN HUMAN 25%-25GM/100ML 100 ML IV SCH ×4 (04:13→21:04)
[2022-10-29 05:01] LABS: BASOPHILS % (AUTO) 0.5 % (0.0-2.0); EOSINOPHILS % (AUTO) 1.9 % (1.0-6.0); HEMATOCRIT 26.8 % (36-46); HEMOGLOBIN 8.4 g/dL (12.0-16.0); LYMPHOCYTES # (AUTO) 1.4 K/uL (1.0-4.8); LYMPHOCYTES % (AUTO) 15.2 % (22.0-44.0); MEAN CORPUSCULAR HEMOGLOBIN 26.7 pg (26.0-34.0); MEAN CORPUSCULAR HGB CONC 31.4 G/dL (31.0-37.0); MEAN CORPUSCULAR VOLUME 85 fL (80-100); MONOCYTES # (AUTO) 0.8 K/uL (0.1-1.0); MONOCYTES % (AUTO) 9.4 % (2.0-9.0); NEUTROPHILS # (AUTO) 6.6 K/uL (1.8-7.7); PLATELET COUNT (AUTO) 461 K/uL (150-450); RED BLOOD CELL COUNT(AUTO) 3.15 MIL/uL (4.00-5.20); RED CELL DISTRIBUTION WIDTH 18.7 % (11.5-14.5); WHITE BLOOD COUNT (AUTO) 9.1 K/uL (4.5-11.0)
[2022-10-29 05:14] LABS: ANION GAP 10 mmol/L (8-16); CALCIUM, TOTAL 9.2 mg/dL (8.8-10.5); CARBON DIOXIDE 28 mmol/L (22-29); CHLORIDE 107 mmol/L (98-107); CREATININE 0.31 mg/dL (0.60-1.30); GLOMERULAR FILTR. RATE CALC > 60 mL/min (>60); GLUCOSE,RANDOM 99 mg/dL (70-110); POTASSIUM 3.1 mmol/L (3.5-5.1); SODIUM SERUM 145 mmol/L (136-145); UREA NITROGEN, BLOOD 11 mg/dL (7-18)
[2022-10-29 05:27] LABS: VANCOMYCIN,RANDOM 22.5 mcg/mL (25.0-50.0)
[2022-10-29] MEDS: DEXMEDETOMIDINE HCL 400 MCG in SODIUM CHLORIDE 0.9% 96 ML IV PRN ×3 (06:08→18:21)
[2022-10-29] MEDS: BUDESONIDE 0.5 MG/2 ML NEB SOLUTION NEB SCH ×2 (07:16→19:54)
[2022-10-29] MEDS: CefTRIAXone 1 GM/DEXTROSE 50 ML IV SCH (08:22)
[2022-10-29] MEDS: DOCUSATE SODIUM 100 MG/10 ML LIQUID UDCUP NG SCH ×2 (08:22→21:02)
[2022-10-29] MEDS: ETHYL ALCOHOL 62% ANTISEPTIC NASAL SANITIZER 0.6 ML AMPUL NASAL SCH ×2 (08:22→21:02)
[2022-10-29] MEDS: PANTOPRAZOLE SODIUM 40 MG/VIAL IVP SCH (08:23)
[2022-10-29] MEDS: ACETAMINOPHEN 325 MG TABLET PO PRN ×2 (08:23→16:33)
[2022-10-29] MEDS: ASPIRIN 81 MG CHEWABLE TABLET NG SCH (08:24)
[2022-10-29] MEDS: AMIODARONE HCL 200 MG TABLET PO SCH ×2 (08:24→21:02)
[2022-10-29] MEDS: POTASSIUM CHL 10 MEQ/WATER 50 ML IV PRN ×3 (08:32→11:51)
[2022-10-29] MEDS ORDERED: QUEtiapine FUMARATE 25 MG TABLET PO SCH (09:00)
[2022-10-29] MEDS: AmLODIPine BESYLATE 5 MG TABLET PO SCH (10:09)
[2022-10-29 10:33] LABS: ABG BASE EXCESS -3.3 mmol/L (-2.0-3.0); ABG CARBOXYHEMOGLOBIN 0.5 % (0.0-1.5); ABG HCO3 21.2 mmol/L (22.0-26.0); ABG METHEMOGLOBIN 0.3 % (0.0-1.5); ABG OXYGEN CONTENT 12.7 mL/dL (15.0-23.0); ABG OXYGEN SATURATION 89.5 % (95.0-98.0); ABG OXYHEMOGLOBIN 88.8 % (94.0-100.0); ABG PCO2 61 mmHg (35-45); ABG PH 7.219 (7.35-7.450); ABG TOTAL HEMOGLOBIN 10.1 G/dL (12.0-18.0); PO2, ARTERIAL BG 73.1 mmHg (75.0-83.0); SOURCE, BLOOD GAS ARTERIAL; TEMPERATURE, FAHRENHEIT, BG 100.1 FAHREN (96.0-98.6)
[2022-10-29 10:34] LABS: ABG A-A DIFF O2 140.8 mmHg (10-20.0); ALLEN TEST, BLOOD GAS Positive; CPAP, BG 0 cm H2O; O2 DEVICE,BLOOD GAS VENTILATOR (ROOM AIR); PRESSURE SUPPORT, BG 8 cm H2O; SITE, BLOOD GAS LFT RADIAL; SPONTANEOUS VT, BG 379 ml; VENT MODE, BG CPAP (ROOM AIR)
[2022-10-29] MEDS: SODIUM CHLORIDE 0.45% 1,000 ML IV SCH (20:58)
[2022-10-29] MEDS: QUEtiapine FUMARATE 25 MG TABLET PO SCH (21:01)
[2022-10-30] VITALS (26 sets, daily range): BP systolic 97–181; BP diastolic 47–77; PULSE 47–84; RESP 24–26; TEMP 98.6–100; O2SAT 90–98
[2022-10-30] MEDS: DEXMEDETOMIDINE HCL 400 MCG in SODIUM CHLORIDE 0.9% 96 ML IV PRN ×2 (00:44→08:37)
[2022-10-30] MEDS: ALBUTEROL SULFATE 2.5 MG/0.5 ML NEB SOLUTION NEB SCH ×4 (01:59→19:16)
[2022-10-30] MEDS: IPRATROPIUM BROMIDE 0.5 MG/2.5 ML NEB SOLUTION NEB SCH ×4 (01:59→19:16)
[2022-10-30] MEDS: PROPOFOL 1000 MG/ISO-OSM 100 ML IV PRN ×5 (02:00→20:14)
[2022-10-30] MEDS: ALBUMIN HUMAN 25%-25GM/100ML 100 ML IV SCH ×4 (03:09→22:12)
[2022-10-30] MEDS: FentaNYL CIT 1000MCG/0.9% NACL 100 ML IV PRN ×4 (04:45→22:13)
[2022-10-30 05:22] LABS: BASOPHILS % (AUTO) 0.5 % (0.0-2.0); EOSINOPHILS % (AUTO) 2.1 % (1.0-6.0); HEMOGLOBIN 8.4 g/dL (12.0-16.0); LYMPHOCYTES # (AUTO) 1.6 K/uL (1.0-4.8); LYMPHOCYTES % (AUTO) 15.6 % (22.0-44.0); MEAN CORPUSCULAR HEMOGLOBIN 26.4 pg (26.0-34.0); MEAN CORPUSCULAR VOLUME 85 fL (80-100); MONOCYTES # (AUTO) 0.8 K/uL (0.1-1.0); MONOCYTES % (AUTO) 7.8 % (2.0-9.0); NEUTROPHILS # (AUTO) 7.7 K/uL (1.8-7.7); PLATELET COUNT (AUTO) 523 K/uL (150-450); RED BLOOD CELL COUNT(AUTO) 3.18 MIL/uL (4.00-5.20); WHITE BLOOD COUNT (AUTO) 10.4 K/uL (4.5-11.0)
[2022-10-30 05:52] LABS: ANION GAP 10 mmol/L (8-16); CALCIUM, TOTAL 9.4 mg/dL (8.8-10.5); CARBON DIOXIDE 28 mmol/L (22-29); CHLORIDE 106 mmol/L (98-107); CREATININE 0.28 mg/dL (0.60-1.30); GLOMERULAR FILTR. RATE CALC > 60 mL/min (>60); GLUCOSE,RANDOM 96 mg/dL (70-110); POTASSIUM 3.4 mmol/L (3.5-5.1); SODIUM SERUM 143 mmol/L (136-145); UREA NITROGEN, BLOOD 7 mg/dL (7-18)
[2022-10-30] MEDS: POTASSIUM CHL 10 MEQ/WATER 50 ML IV PRN ×2 (06:30→08:49)
[2022-10-30] MEDS: BUDESONIDE 0.5 MG/2 ML NEB SOLUTION NEB SCH ×2 (07:28→20:04)
[2022-10-30] MEDS: HEPARIN SODIUM,PORCINE 5,000 UNITS/ML VIAL SQ SCH ×3 (08:00→23:12)
[2022-10-30] MEDS: PANTOPRAZOLE SODIUM 40 MG/VIAL IVP SCH (08:47)
[2022-10-30] MEDS: AMIODARONE HCL 200 MG TABLET PO SCH ×2 (08:48→20:12)
[2022-10-30] MEDS: AmLODIPine BESYLATE 5 MG TABLET PO SCH (08:48)
[2022-10-30] MEDS: MetroNIDAZOLE 500 MG TABLET PO SCH ×3 (08:48→23:11)
[2022-10-30] MEDS: QUEtiapine FUMARATE 25 MG TABLET PO SCH ×2 (08:48→20:11)
[2022-10-30] MEDS: METOCLOPRAMIDE HCL 5 MG/ML 2 ML VIAL IVP SCH ×3 (08:48→23:11)
[2022-10-30] MEDS: CefTRIAXone 1 GM/DEXTROSE 50 ML IV SCH (08:48)
[2022-10-30] MEDS: ETHYL ALCOHOL 62% ANTISEPTIC NASAL SANITIZER 0.6 ML AMPUL NASAL SCH ×2 (08:48→20:11)
[2022-10-30] MEDS: ASPIRIN 81 MG CHEWABLE TABLET NG SCH (08:49)
[2022-10-30] MEDS: DOCUSATE SODIUM 100 MG/10 ML LIQUID UDCUP NG SCH ×2 (08:49→20:11)
[2022-10-30] MEDS: VANCOMYCIN HCL 750 MG in DEXTROSE 5%-WATER 250 ML IV SCH ×3 (08:50→23:10)
[2022-10-30 09:02] LABS: INR 1.5 (0.9-1.1); PROTHROMBIN TIME 15.1 SEC (9.4-11.6)
[2022-10-30] MEDS ORDERED: ROCURONIUM BROMIDE 10 MG/ML 5 ML VIAL IVP ONE ×2 (15:00)
[2022-10-30] MEDS ORDERED: ETOMIDATE 2 MG/ML 10 ML VIAL IVP ONE ×3 (15:00)
[2022-10-30] MEDS: MIDAZOLAM HCL 100 MG in SODIUM CHLORIDE 0.9% 180 ML IV PRN (15:00)
[2022-10-30] MEDS: ACETYLCYSTEINE 10% 100 MG/ML 4 ML NEB SOLUTION NEB SCH ×2 (19:18→22:40)
[2022-10-30] MEDS: SODIUM CHLORIDE 0.45% 1,000 ML IV SCH (20:11)
[2022-10-30] MEDS: ALBUTEROL SULFATE 2.5 MG/0.5 ML NEB SOLUTION NEB PRN (22:40)
[2022-10-30] MEDS: IPRATROPIUM BROMIDE 0.5 MG/2.5 ML NEB SOLUTION NEB PRN (22:40)
[2022-10-30] MEDS: ACETAMINOPHEN 325 MG TABLET PO PRN (23:11)
[2022-10-31] VITALS (25 sets, daily range): BP systolic 100–169; BP diastolic 48–81; PULSE 59–109; RESP 22–27; TEMP 99–100.5; O2SAT 92–99
[2022-10-31] MEDS: PROPOFOL 1000 MG/ISO-OSM 100 ML IV PRN ×4 (01:05→17:53)
[2022-10-31] MEDS: ACETYLCYSTEINE 10% 100 MG/ML 4 ML NEB SOLUTION NEB SCH ×6 (03:04→23:02)
[2022-10-31] MEDS: IPRATROPIUM BROMIDE 0.5 MG/2.5 ML NEB SOLUTION NEB SCH ×4 (03:04→18:57)
[2022-10-31] MEDS: ALBUTEROL SULFATE 2.5 MG/0.5 ML NEB SOLUTION NEB SCH ×4 (03:04→18:57)
[2022-10-31] MEDS: FentaNYL CIT 1000MCG/0.9% NACL 100 ML IV PRN ×3 (03:55→17:47)
[2022-10-31] MEDS: ALBUMIN HUMAN 25%-25GM/100ML 100 ML IV SCH ×4 (03:55→22:18)
[2022-10-31 06:23] LABS: ANION GAP 10 mmol/L (8-16); CALCIUM, TOTAL 8.7 mg/dL (8.8-10.5); CARBON DIOXIDE 28 mmol/L (22-29); CHLORIDE 106 mmol/L (98-107); CREATININE 0.29 mg/dL (0.60-1.30); GLOMERULAR FILTR. RATE CALC > 60 mL/min (>60); GLUCOSE,RANDOM 81 mg/dL (70-110); POTASSIUM 3.2 mmol/L (3.5-5.1); SODIUM SERUM 144 mmol/L (136-145); UREA NITROGEN, BLOOD 7 mg/dL (7-18)
[2022-10-31] MEDS: POTASSIUM CHL 10 MEQ/WATER 50 ML IV PRN ×3 (06:29→09:36)
[2022-10-31 06:49] LABS: VANCOMYCIN,RANDOM 25.2 mcg/mL (25.0-50.0)
[2022-10-31 06:51] LABS: BASOPHILS % (AUTO) 0.9 % (0.0-2.0); EOSINOPHILS % (AUTO) 2.3 % (1.0-6.0); HEMATOCRIT 24.5 % (36-46); HEMOGLOBIN 7.7 g/dL (12.0-16.0); LYMPHOCYTES # (AUTO) 1.4 K/uL (1.0-4.8); MEAN CORPUSCULAR HEMOGLOBIN 26.7 pg (26.0-34.0); MEAN CORPUSCULAR HGB CONC 31.3 G/dL (31.0-37.0); MEAN CORPUSCULAR VOLUME 85 fL (80-100); MONOCYTES # (AUTO) 0.7 K/uL (0.1-1.0); MONOCYTES % (AUTO) 7.5 % (2.0-9.0); NEUTROPHILS # (AUTO) 6.9 K/uL (1.8-7.7); NEUTROPHILS % (AUTO) 74.3 % (40.0-70.0); RED BLOOD CELL COUNT(AUTO) 2.87 MIL/uL (4.00-5.20); RED CELL DISTRIBUTION WIDTH 18.3 % (11.5-14.5); WHITE BLOOD COUNT (AUTO) 9.3 K/uL (4.5-11.0)
[2022-10-31] MEDS: BUDESONIDE 0.5 MG/2 ML NEB SOLUTION NEB SCH ×2 (07:33→18:56)
[2022-10-31] MEDS: METOCLOPRAMIDE HCL 5 MG/ML 2 ML VIAL IVP SCH ×2 (08:01→16:16)
[2022-10-31] MEDS: VANCOMYCIN HCL 750 MG in DEXTROSE 5%-WATER 250 ML IV SCH ×2 (08:01→16:15)
[2022-10-31] MEDS: MetroNIDAZOLE 500 MG TABLET PO SCH ×2 (08:02→16:16)
[2022-10-31] MEDS: HEPARIN SODIUM,PORCINE 5,000 UNITS/ML VIAL SQ SCH ×2 (08:02→16:16)
[2022-10-31] MEDS: PANTOPRAZOLE SODIUM 40 MG/VIAL IVP SCH (08:03)
[2022-10-31] MEDS: AMIODARONE HCL 200 MG TABLET PO SCH ×2 (08:03→20:25)
[2022-10-31] MEDS: ASPIRIN 81 MG CHEWABLE TABLET NG SCH (08:03)
[2022-10-31] MEDS: CefTRIAXone 1 GM/DEXTROSE 50 ML IV SCH (08:03)
[2022-10-31] MEDS: AmLODIPine BESYLATE 5 MG TABLET PO SCH (08:04)
[2022-10-31] MEDS: DOCUSATE SODIUM 100 MG/10 ML LIQUID UDCUP NG SCH ×2 (08:04→20:25)
[2022-10-31] MEDS: QUEtiapine FUMARATE 25 MG TABLET PO SCH ×2 (08:04→20:25)
[2022-10-31] MEDS: ETHYL ALCOHOL 62% ANTISEPTIC NASAL SANITIZER 0.6 ML AMPUL NASAL SCH ×2 (08:07→20:24)
[2022-10-31 08:18] LABS: PLATELET COUNT (AUTO) 179 K/uL (150-450)
[2022-10-31] MEDS: ALBUTEROL SULFATE 2.5 MG/0.5 ML NEB SOLUTION NEB PRN (11:08)
[2022-10-31] MEDS: IPRATROPIUM BROMIDE 0.5 MG/2.5 ML NEB SOLUTION NEB PRN (11:08)
[2022-10-31] MEDS: DEXMEDETOMIDINE HCL 400 MCG in SODIUM CHLORIDE 0.9% 96 ML IV PRN (14:40)
[2022-10-31] MEDS: ACETAMINOPHEN 325 MG TABLET PO PRN ×2 (14:48→20:25)
[2022-10-31] MEDS ORDERED: SODIUM CHLORIDE 0.9% 500 ML IV ONE (16:32)
[2022-10-31] MEDS: MIDAZOLAM HCL 100 MG in SODIUM CHLORIDE 0.9% 180 ML IV PRN (17:48)
[2022-10-31] MEDS: SODIUM CHLORIDE 0.45% 1,000 ML IV SCH (19:03)
[2022-11-01] VITALS (29 sets, daily range): BP systolic 128–168; BP diastolic 59–82; PULSE 60–102; RESP 24–28; TEMP 99.7–100.9; O2SAT 94–97
[2022-11-01] MEDS: HEPARIN SODIUM,PORCINE 5,000 UNITS/ML VIAL SQ SCH ×4 (00:18→23:53)
[2022-11-01] MEDS: MetroNIDAZOLE 500 MG TABLET PO SCH ×2 (00:18→08:50)
[2022-11-01] MEDS: VANCOMYCIN HCL 750 MG in DEXTROSE 5%-WATER 250 ML IV SCH ×4 (00:18→23:53)
[2022-11-01] MEDS: METOCLOPRAMIDE HCL 5 MG/ML 2 ML VIAL IVP SCH ×4 (00:19→23:54)
[2022-11-01] MEDS: PROPOFOL 1000 MG/ISO-OSM 100 ML IV PRN ×2 (01:01→07:15)
[2022-11-01] MEDS: FentaNYL CIT 1000MCG/0.9% NACL 100 ML IV PRN ×3 (01:02→19:59)
[2022-11-01] MEDS: ACETAMINOPHEN 325 MG TABLET PO PRN ×5 (01:58→22:15)
[2022-11-01] MEDS: ACETYLCYSTEINE 10% 100 MG/ML 4 ML NEB SOLUTION NEB SCH ×6 (03:05→22:24)
[2022-11-01] MEDS: IPRATROPIUM BROMIDE 0.5 MG/2.5 ML NEB SOLUTION NEB SCH ×4 (03:05→19:10)
[2022-11-01] MEDS: ALBUTEROL SULFATE 2.5 MG/0.5 ML NEB SOLUTION NEB SCH ×4 (03:05→19:10)
[2022-11-01] MEDS: ALBUMIN HUMAN 25%-25GM/100ML 100 ML IV SCH ×4 (03:27→21:39)
[2022-11-01 06:22] LABS: % IRON SATURATION 19.6 % (22-44)
[2022-11-01 06:24] LABS: BASOPHILS % (AUTO) 0.4 % (0.0-2.0); EOSINOPHILS % (AUTO) 2.3 % (1.0-6.0); HEMATOCRIT 26.1 % (36-46); HEMOGLOBIN 8.2 g/dL (12.0-16.0); LYMPHOCYTES # (AUTO) 1.4 K/uL (1.0-4.8); LYMPHOCYTES % (AUTO) 12.7 % (22.0-44.0); MEAN CORPUSCULAR HEMOGLOBIN 26.5 pg (26.0-34.0); MEAN CORPUSCULAR HGB CONC 31.3 G/dL (31.0-37.0); MEAN CORPUSCULAR VOLUME 85 fL (80-100); MONOCYTES # (AUTO) 0.8 K/uL (0.1-1.0); MONOCYTES % (AUTO) 7.5 % (2.0-9.0); NEUTROPHILS # (AUTO) 8.5 K/uL (1.8-7.7); NEUTROPHILS % (AUTO) 77.1 % (40.0-70.0); PLATELET COUNT (AUTO) 501 K/uL (150-450); RED BLOOD CELL COUNT(AUTO) 3.09 MIL/uL (4.00-5.20); RED CELL DISTRIBUTION WIDTH 18.9 % (11.5-14.5); WHITE BLOOD COUNT (AUTO) 11.1 K/uL (4.5-11.0)
[2022-11-01 06:29] LABS: ANION GAP 10 mmol/L (8-16); CALCIUM, TOTAL 9.4 mg/dL (8.8-10.5); CARBON DIOXIDE 29 mmol/L (22-29); CHLORIDE 106 mmol/L (98-107); CREATININE 0.28 mg/dL (0.60-1.30); GLOMERULAR FILTR. RATE CALC > 60 mL/min (>60); GLUCOSE,RANDOM 105 mg/dL (70-110); POTASSIUM 3.4 mmol/L (3.5-5.1); SODIUM SERUM 145 mmol/L (136-145); UREA NITROGEN, BLOOD 6 mg/dL (7-18)
[2022-11-01] MEDS: BUDESONIDE 0.5 MG/2 ML NEB SOLUTION NEB SCH ×2 (07:11→20:02)
[2022-11-01] MEDS: POTASSIUM CHL 10 MEQ/WATER 50 ML IV PRN ×3 (07:15→10:31)
[2022-11-01] MEDS: AmLODIPine BESYLATE 5 MG TABLET PO SCH (08:43)
[2022-11-01] MEDS: QUEtiapine FUMARATE 25 MG TABLET PO SCH ×2 (08:43→21:39)
[2022-11-01] MEDS: DOCUSATE SODIUM 100 MG/10 ML LIQUID UDCUP NG SCH ×2 (08:44→21:39)
[2022-11-01] MEDS: AMIODARONE HCL 200 MG TABLET PO SCH ×2 (08:44→21:39)
[2022-11-01] MEDS: CefTRIAXone 1 GM/DEXTROSE 50 ML IV SCH (09:25)
[2022-11-01] MEDS: ETHYL ALCOHOL 62% ANTISEPTIC NASAL SANITIZER 0.6 ML AMPUL NASAL SCH ×2 (09:35→21:39)
[2022-11-01] MEDS: PANTOPRAZOLE SODIUM 40 MG/VIAL IVP SCH (09:35)
[2022-11-01] MEDS: ASPIRIN 81 MG CHEWABLE TABLET NG SCH (09:35)
[2022-11-01] MEDS: ALBUTEROL SULFATE 2.5 MG/0.5 ML NEB SOLUTION NEB PRN ×2 (10:11→22:24)
[2022-11-01] MEDS: IPRATROPIUM BROMIDE 0.5 MG/2.5 ML NEB SOLUTION NEB PRN ×2 (10:11→22:24)
[2022-11-01] MEDS: CLINDAMYCIN 900 MG/D5% WATER 50 ML IV SCH ×2 (14:42→21:40)
[2022-11-01] MEDS ORDERED: EPINEPHrine 1:10,000 [1 MG/10 ML] SYRINGE ONE (16:50)
[2022-11-01] MEDS ORDERED: DiphenhydrAMINE HCL 50 MG/ML VIAL ONE (16:51)
[2022-11-01] MEDS ORDERED: SODIUM TETRADECYL SULFATE 3% 60 MG/2 ML VIAL IVP ONE (16:51)
[2022-11-01] MEDS ORDERED: ATROPINE SULFATE 0.1 MG/ML 10 ML SYRINGE IVP ONE (16:51)
[2022-11-01] MEDS ORDERED: FLUMAZENIL 0.1 MG/ML 5 ML VIAL IVP ONE (16:51)
[2022-11-01] MEDS ORDERED: NALOXONE HCL 0.4 MG/ML VIAL ONE (16:51)
[2022-11-01] MEDS: SODIUM CHLORIDE 0.45% 1,000 ML IV SCH (21:39)
[2022-11-02] VITALS (27 sets, daily range): BP systolic 98–179; BP diastolic 48–79; PULSE 60–104; RESP 24–29; TEMP 99.8–101.1; O2SAT 92–95
[2022-11-02] MEDS: IPRATROPIUM BROMIDE 0.5 MG/2.5 ML NEB SOLUTION NEB SCH ×4 (02:34→19:15)
[2022-11-02] MEDS: ACETYLCYSTEINE 10% 100 MG/ML 4 ML NEB SOLUTION NEB SCH ×6 (02:34→22:41)
[2022-11-02] MEDS: ALBUTEROL SULFATE 2.5 MG/0.5 ML NEB SOLUTION NEB SCH ×4 (02:34→19:15)
[2022-11-02] MEDS: ALBUMIN HUMAN 25%-25GM/100ML 100 ML IV SCH ×4 (04:10→22:30)
[2022-11-02] MEDS: ACETAMINOPHEN 325 MG TABLET PO PRN ×3 (04:11→18:19)
[2022-11-02] MEDS: PROPOFOL 1000 MG/ISO-OSM 100 ML IV PRN ×2 (04:33→08:31)
[2022-11-02] MEDS: CLINDAMYCIN 900 MG/D5% WATER 50 ML IV SCH ×3 (05:37→22:42)
[2022-11-02] MEDS: FentaNYL CIT 1000MCG/0.9% NACL 100 ML IV PRN (05:38)
[2022-11-02 06:32] LABS: ANION GAP 10 mmol/L (8-16); CALCIUM, TOTAL 9.5 mg/dL (8.8-10.5); CARBON DIOXIDE 30 mmol/L (22-29); CHLORIDE 103 mmol/L (98-107); CREATININE 0.39 mg/dL (0.60-1.30); GLOMERULAR FILTR. RATE CALC > 60 mL/min (>60); GLUCOSE,RANDOM 92 mg/dL (70-110); POTASSIUM 3.5 mmol/L (3.5-5.1); SODIUM SERUM 143 mmol/L (136-145); UREA NITROGEN, BLOOD 7 mg/dL (7-18); VANCOMYCIN,RANDOM 22.8 mcg/mL (25.0-50.0)
[2022-11-02] MEDS: VANCOMYCIN HCL 750 MG in DEXTROSE 5%-WATER 250 ML IV SCH ×2 (08:31→16:08)
[2022-11-02] MEDS: PANTOPRAZOLE SODIUM 40 MG/VIAL IVP SCH (08:32)
[2022-11-02] MEDS: AmLODIPine BESYLATE 5 MG TABLET PO SCH (08:32)
[2022-11-02] MEDS: HEPARIN SODIUM,PORCINE 5,000 UNITS/ML VIAL SQ SCH ×2 (08:32→16:07)
[2022-11-02] MEDS: ETHYL ALCOHOL 62% ANTISEPTIC NASAL SANITIZER 0.6 ML AMPUL NASAL SCH ×2 (08:32→20:59)
[2022-11-02] MEDS: AMIODARONE HCL 200 MG TABLET PO SCH ×2 (08:32→20:59)
[2022-11-02] MEDS: METOCLOPRAMIDE HCL 5 MG/ML 2 ML VIAL IVP SCH ×2 (08:32→16:07)
[2022-11-02] MEDS: QUEtiapine FUMARATE 25 MG TABLET PO SCH (08:33)
[2022-11-02] MEDS: ASPIRIN 81 MG CHEWABLE TABLET NG SCH (08:33)
[2022-11-02] MEDS: DOCUSATE SODIUM 100 MG/10 ML LIQUID UDCUP NG SCH ×2 (08:33→20:59)
[2022-11-02] MEDS: BUDESONIDE 0.5 MG/2 ML NEB SOLUTION NEB SCH ×2 (09:07→19:58)
[2022-11-02] MEDS: MIDAZOLAM HCL 100 MG in SODIUM CHLORIDE 0.9% 180 ML IV PRN (09:09)
[2022-11-02] MEDS: FentaNYL 50 MCG/HOUR PATCH TD SCH (10:58)
[2022-11-02 14:56] LABS: APPEARANCE,URINE CLEAR (CLEAR); BILIRUBIN,URINE NEGATIVE (NEGATIVE); COLOR,URINE LIGHT YELLOW (YELLOW); GLUCOSE, URINE (UA) NEGATIVE (NEGATIVE); KETONES,URINE NEGATIVE (NEGATIVE); LEUKOCYTE ESTERASE ,URINE TRACE (NEGATIVE); NITRATE,URINE NEGATIVE (NEGATIVE); OCCULT BLOOD,URINE NEGATIVE (NEGATIVE); PH,URINE 5.5 (5.0-8.0); PROTEIN,URINE TRACE mg/dL (NEGATIVE); UROBILINOGEN,URINE <=1.0 mg/dL (<=1.0)
[2022-11-02 15:21] LABS: BACTERIA,URINE None Seen /HPF (None Seen); RBC,URINE None Seen /HPF (0-2); YEAST,URINE Many /HPF (None Seen)
[2022-11-02] MEDS: PIPERACILLIN/TAZO 3.375 GM/D5W 50 ML IV SCH ×2 (16:08→22:30)
[2022-11-02] MEDS: QUEtiapine FUMARATE 100 MG TABLET PO SCH (21:00)
[2022-11-02] MEDS: SODIUM CHLORIDE 0.45% 1,000 ML IV SCH (22:42)
[2022-11-03] VITALS (35 sets, daily range): BP systolic 98–176; BP diastolic 46–82; PULSE 59–111; RESP 24–34; TEMP 99.1–101.9; O2SAT 89–96
[2022-11-03] MEDS: VANCOMYCIN HCL 750 MG in DEXTROSE 5%-WATER 250 ML IV SCH ×3 (00:15→17:50)
[2022-11-03] MEDS: HEPARIN SODIUM,PORCINE 5,000 UNITS/ML VIAL SQ SCH ×3 (00:15→16:32)
[2022-11-03] MEDS: METOCLOPRAMIDE HCL 5 MG/ML 2 ML VIAL IVP SCH ×3 (00:15→16:32)
[2022-11-03] MEDS: IPRATROPIUM BROMIDE 0.5 MG/2.5 ML NEB SOLUTION NEB SCH ×4 (02:07→19:50)
[2022-11-03] MEDS: ALBUTEROL SULFATE 2.5 MG/0.5 ML NEB SOLUTION NEB SCH ×4 (02:07→19:50)
[2022-11-03] MEDS: ACETYLCYSTEINE 10% 100 MG/ML 4 ML NEB SOLUTION NEB SCH ×6 (02:08→22:25)
[2022-11-03] MEDS: PIPERACILLIN/TAZO 3.375 GM/D5W 50 ML IV SCH ×4 (03:44→22:39)
[2022-11-03] MEDS: ALBUMIN HUMAN 25%-25GM/100ML 100 ML IV SCH ×4 (03:45→22:38)
[2022-11-03] MEDS: CLINDAMYCIN 900 MG/D5% WATER 50 ML IV SCH ×3 (05:36→22:39)
[2022-11-03 05:42] LABS: ANION GAP 8 mmol/L (8-16); CALCIUM, TOTAL 9.6 mg/dL (8.8-10.5); CARBON DIOXIDE 31 mmol/L (22-29); CHLORIDE 101 mmol/L (98-107); CREATININE 0.54 mg/dL (0.60-1.30); GLOMERULAR FILTR. RATE CALC > 60 mL/min (>60); GLUCOSE,RANDOM 101 mg/dL (70-110); POTASSIUM 3.2 mmol/L (3.5-5.1); SODIUM SERUM 140 mmol/L (136-145); UREA NITROGEN, BLOOD 10 mg/dL (7-18)
[2022-11-03] MEDS: BUDESONIDE 0.5 MG/2 ML NEB SOLUTION NEB SCH ×2 (08:11→20:05)
[2022-11-03] MEDS: AmLODIPine BESYLATE 5 MG TABLET PO SCH (08:16)
[2022-11-03] MEDS: QUEtiapine FUMARATE 100 MG TABLET PO SCH ×2 (08:16→21:28)
[2022-11-03] MEDS: PANTOPRAZOLE SODIUM 40 MG/VIAL IVP SCH (08:17)
[2022-11-03] MEDS: ASPIRIN 81 MG CHEWABLE TABLET NG SCH (08:17)
[2022-11-03] MEDS: DOCUSATE SODIUM 100 MG/10 ML LIQUID UDCUP NG SCH ×2 (08:17→21:00)
[2022-11-03] MEDS: AMIODARONE HCL 200 MG TABLET PO SCH ×2 (08:17→21:28)
[2022-11-03] MEDS: ETHYL ALCOHOL 62% ANTISEPTIC NASAL SANITIZER 0.6 ML AMPUL NASAL SCH ×2 (08:18→21:28)
[2022-11-03] MEDS: FERROUS SULFATE 300 MG/5 ML LIQUID UDCUP NG SCH ×3 (09:31→21:28)
[2022-11-03] MEDS ORDERED: SODIUM CHLORIDE 0.9% 250 ML IV ONE (14:28)
[2022-11-03] MEDS: POTASSIUM CHL 10 MEQ/WATER 50 ML IV PRN (14:44)
[2022-11-03] MEDS: ACETAMINOPHEN 325 MG TABLET PO PRN (14:45)
[2022-11-03] MEDS: HydrALAZINE HCL 20 MG/ML VIAL IVP PRN (16:00)
[2022-11-03] MEDS: PROPOFOL 1000 MG/ISO-OSM 100 ML IV PRN (16:48)
[2022-11-03] MEDS: SODIUM CHLORIDE 0.45% 1,000 ML IV SCH (21:28)
[2022-11-03] MEDS: MIDAZOLAM HCL 100 MG in SODIUM CHLORIDE 0.9% 180 ML IV PRN (21:32)
[2022-11-04] VITALS (34 sets, daily range): BP systolic 126–175; BP diastolic 55–93; PULSE 72–109; RESP 23–38; TEMP 99.9–101.4; O2SAT 87–96
[2022-11-04] MEDS: VANCOMYCIN HCL 750 MG in DEXTROSE 5%-WATER 250 ML IV SCH ×3 (00:40→16:37)
[2022-11-04] MEDS: METOCLOPRAMIDE HCL 5 MG/ML 2 ML VIAL IVP SCH ×3 (00:40→16:38)
[2022-11-04] MEDS: HEPARIN SODIUM,PORCINE 5,000 UNITS/ML VIAL SQ SCH ×3 (00:40→15:34)
[2022-11-04] MEDS: IPRATROPIUM BROMIDE 0.5 MG/2.5 ML NEB SOLUTION NEB SCH ×4 (02:00→19:16)
[2022-11-04] MEDS: ALBUTEROL SULFATE 2.5 MG/0.5 ML NEB SOLUTION NEB SCH ×4 (02:00→19:16)
[2022-11-04] MEDS: ACETYLCYSTEINE 10% 100 MG/ML 4 ML NEB SOLUTION NEB SCH ×6 (02:04→22:39)
[2022-11-04] MEDS: ALBUMIN HUMAN 25%-25GM/100ML 100 ML IV SCH ×4 (04:03→23:55)
[2022-11-04] MEDS: PIPERACILLIN/TAZO 3.375 GM/D5W 50 ML IV SCH ×4 (04:03→23:54)
[2022-11-04] MEDS: PROPOFOL 1000 MG/ISO-OSM 100 ML IV PRN (04:04)
[2022-11-04 05:12] LABS: BASOPHILS % (AUTO) 0.3 % (0.0-2.0); EOSINOPHILS % (AUTO) 1.8 % (1.0-6.0); HEMATOCRIT 24.2 % (36-46); HEMOGLOBIN 7.6 g/dL (12.0-16.0); LYMPHOCYTES # (AUTO) 1.2 K/uL (1.0-4.8); LYMPHOCYTES % (AUTO) 8.2 % (22.0-44.0); MEAN CORPUSCULAR HEMOGLOBIN 26.2 pg (26.0-34.0); MEAN CORPUSCULAR HGB CONC 31.4 G/dL (31.0-37.0); MEAN CORPUSCULAR VOLUME 83 fL (80-100); MONOCYTES % (AUTO) 6.5 % (2.0-9.0); NEUTROPHILS # (AUTO) 12.4 K/uL (1.8-7.7); NEUTROPHILS % (AUTO) 83.2 % (40.0-70.0); PLATELET COUNT (AUTO) 431 K/uL (150-450); WHITE BLOOD COUNT (AUTO) 14.9 K/uL (4.5-11.0)
[2022-11-04 05:24] LABS: ALANINE AMINOTRANSFERASE 10 U/L (12-78); ALKALINE PHOSPHATASE 45 U/L (46-116); ANION GAP 13 mmol/L (8-16); ASPARTATE AMINOTRANSFERASE 11 U/L (15-37); BILIRUBIN,TOTAL 0.9 mg/dL (0.1-1.0); CALCIUM, TOTAL 9.7 mg/dL (8.8-10.5); CARBON DIOXIDE 31 mmol/L (22-29); CHLORIDE 100 mmol/L (98-107); CREATININE 0.38 mg/dL (0.60-1.30); GLOMERULAR FILTR. RATE CALC > 60 mL/min (>60); GLUCOSE,RANDOM 116 mg/dL (70-110); SODIUM SERUM 147 mmol/L (136-145); TOTAL PROTEIN, SERUM 6.6 g/dL (6.4-8.2); UREA NITROGEN, BLOOD 8 mg/dL (7-18)
[2022-11-04] MEDS: CLINDAMYCIN 900 MG/D5% WATER 50 ML IV SCH (06:18)
[2022-11-04] MEDS: POTASSIUM CHL 10 MEQ/WATER 50 ML IV PRN ×4 (06:18→11:18)
[2022-11-04] MEDS: ACETAMINOPHEN 325 MG TABLET PO PRN ×4 (06:19→23:55)
[2022-11-04] MEDS: BUDESONIDE 0.5 MG/2 ML NEB SOLUTION NEB SCH ×2 (08:01→20:29)
[2022-11-04] MEDS: DOCUSATE SODIUM 100 MG/10 ML LIQUID UDCUP NG SCH ×2 (08:47→21:00)
[2022-11-04] MEDS: QUEtiapine FUMARATE 100 MG TABLET PO SCH ×2 (08:58→21:25)
[2022-11-04] MEDS: ETHYL ALCOHOL 62% ANTISEPTIC NASAL SANITIZER 0.6 ML AMPUL NASAL SCH ×2 (08:59→21:28)
[2022-11-04] MEDS: FERROUS SULFATE 300 MG/5 ML LIQUID UDCUP NG SCH ×3 (08:59→21:27)
[2022-11-04] MEDS: ASPIRIN 81 MG CHEWABLE TABLET NG SCH (08:59)
[2022-11-04] MEDS: PANTOPRAZOLE SODIUM 40 MG/VIAL IVP SCH (08:59)
[2022-11-04] MEDS: AMIODARONE HCL 200 MG TABLET PO SCH ×2 (09:03→21:25)
[2022-11-04] MEDS: AmLODIPine BESYLATE 5 MG TABLET PO SCH (09:25)
[2022-11-04] MEDS: LORazepam 2 MG/ML VIAL IVP PRN ×5 (11:08→22:04)
[2022-11-04] MEDS: MetroNIDAZOLE 500 MG TABLET GT SCH (15:35)
[2022-11-04] MEDS ORDERED: MetroNIDAZOLE 500 MG TABLET PO SCH (16:00)
[2022-11-04] MEDS: SODIUM CHLORIDE 0.45% 1,000 ML IV SCH (19:56)
[2022-11-04] MEDS: HydrALAZINE HCL 20 MG/ML VIAL IVP PRN (19:57)
[2022-11-04] MEDS: ALBUTEROL SULFATE 2.5 MG/0.5 ML NEB SOLUTION NEB PRN (22:39)
[2022-11-04] MEDS: IPRATROPIUM BROMIDE 0.5 MG/2.5 ML NEB SOLUTION NEB PRN (22:40)
[2022-11-04 22:41] LABS: OCCULT BLOOD STOOL SINGLE ONLY NEGATIVE (NEGATIVE)
[2022-11-05] VITALS (34 sets, daily range): BP systolic 122–159; BP diastolic 66–81; PULSE 68–110; RESP 21–33; TEMP 99.3–101.1; O2SAT 90–98
[2022-11-05 00:11] LABS: C.DIFF GDH ANTIGEN, Stool Negative (Negative); C.DIFF TOXINS A&B, Stool Negative (Negative)
[2022-11-05] MEDS: LORazepam 2 MG/ML VIAL IVP PRN ×6 (00:14→19:59)
[2022-11-05] MEDS: METOCLOPRAMIDE HCL 5 MG/ML 2 ML VIAL IVP SCH ×3 (00:14→16:15)
[2022-11-05] MEDS: HEPARIN SODIUM,PORCINE 5,000 UNITS/ML VIAL SQ SCH ×3 (00:18→16:15)
[2022-11-05] MEDS: MetroNIDAZOLE 500 MG TABLET GT SCH ×2 (00:18→09:05)
[2022-11-05] MEDS: VANCOMYCIN HCL 750 MG in DEXTROSE 5%-WATER 250 ML IV SCH ×3 (00:23→16:16)
[2022-11-05] MEDS: ACETYLCYSTEINE 10% 100 MG/ML 4 ML NEB SOLUTION NEB SCH ×6 (02:51→22:43)
[2022-11-05] MEDS: IPRATROPIUM BROMIDE 0.5 MG/2.5 ML NEB SOLUTION NEB SCH ×4 (02:52→19:23)
[2022-11-05] MEDS: ALBUTEROL SULFATE 2.5 MG/0.5 ML NEB SOLUTION NEB SCH ×4 (02:52→19:24)
[2022-11-05] MEDS ORDERED: ACETAMINOPHEN 1000 MG/ISO-OSM 100 ML IV ONE (04:15)
[2022-11-05 05:00] LABS: BASOPHILS % (AUTO) 0.4 % (0.0-2.0); EOSINOPHILS % (AUTO) 0 % (1.0-6.0); HEMATOCRIT 24.7 % (36-46); HEMOGLOBIN 7.7 g/dL (12.0-16.0); LYMPHOCYTES # (AUTO) 0.9 K/uL (1.0-4.8); MEAN CORPUSCULAR HEMOGLOBIN 26.5 pg (26.0-34.0); MEAN CORPUSCULAR HGB CONC 31.4 G/dL (31.0-37.0); MEAN CORPUSCULAR VOLUME 84 fL (80-100); MONOCYTES # (AUTO) 1.2 K/uL (0.1-1.0); MONOCYTES % (AUTO) 6.2 % (2.0-9.0); NEUTROPHILS # (AUTO) 16.6 K/uL (1.8-7.7); PLATELET COUNT (AUTO) 424 K/uL (150-450); RED BLOOD CELL COUNT(AUTO) 2.93 MIL/uL (4.00-5.20); RED CELL DISTRIBUTION WIDTH 19.5 % (11.5-14.5); WHITE BLOOD COUNT (AUTO) 18.8 K/uL (4.5-11.0)
[2022-11-05 05:03] LABS: NEUTROPHILS % (AUTO) 88.4 % (40.0-70.0)
[2022-11-05 05:17] LABS: ANION GAP 13 mmol/L (8-16); CALCIUM, TOTAL 10.1 mg/dL (8.8-10.5); CARBON DIOXIDE 30 mmol/L (22-29); CHLORIDE 101 mmol/L (98-107); CREATININE 0.43 mg/dL (0.60-1.30); GLOMERULAR FILTR. RATE CALC > 60 mL/min (>60); GLUCOSE,RANDOM 123 mg/dL (70-110); POTASSIUM 3.4 mmol/L (3.5-5.1); SODIUM SERUM 144 mmol/L (136-145); UREA NITROGEN, BLOOD 14 mg/dL (7-18)
[2022-11-05] MEDS: ALBUMIN HUMAN 25%-25GM/100ML 100 ML IV SCH ×4 (06:49→21:20)
[2022-11-05] MEDS: PIPERACILLIN/TAZO 3.375 GM/D5W 50 ML IV SCH ×4 (07:00→21:20)
[2022-11-05] MEDS: BUDESONIDE 0.5 MG/2 ML NEB SOLUTION NEB SCH ×2 (08:55→19:24)
[2022-11-05] MEDS: DOCUSATE SODIUM 100 MG/10 ML LIQUID UDCUP NG SCH ×2 (09:00→19:59)
[2022-11-05] MEDS: ASPIRIN 81 MG CHEWABLE TABLET NG SCH (09:05)
[2022-11-05] MEDS: QUEtiapine FUMARATE 100 MG TABLET PO SCH ×2 (09:05→19:58)
[2022-11-05] MEDS: AMIODARONE HCL 200 MG TABLET PO SCH ×2 (09:05→19:58)
[2022-11-05] MEDS: FERROUS SULFATE 300 MG/5 ML LIQUID UDCUP NG SCH ×3 (09:05→19:58)
[2022-11-05] MEDS: AmLODIPine BESYLATE 5 MG TABLET PO SCH (09:05)
[2022-11-05] MEDS: PANTOPRAZOLE SODIUM 40 MG/VIAL IVP SCH (09:05)
[2022-11-05] MEDS: ETHYL ALCOHOL 62% ANTISEPTIC NASAL SANITIZER 0.6 ML AMPUL NASAL SCH ×2 (09:06→19:58)
[2022-11-05] MEDS: FentaNYL 50 MCG/HOUR PATCH TD SCH (10:15)
[2022-11-05] MEDS: ACETAMINOPHEN 325 MG TABLET PO PRN (11:00)
[2022-11-05] MEDS: SODIUM CHLORIDE 0.45% 1,000 ML IV SCH (19:58)
[2022-11-06] VITALS (28 sets, daily range): BP systolic 109–169; BP diastolic 56–73; PULSE 67–101; RESP 19–36; TEMP 98–99.9; O2SAT 90–100
[2022-11-06] MEDS: VANCOMYCIN HCL 750 MG in DEXTROSE 5%-WATER 250 ML IV SCH ×4 (00:27→23:13)
[2022-11-06] MEDS: HydrALAZINE HCL 20 MG/ML VIAL IVP PRN (00:27)
[2022-11-06] MEDS: HEPARIN SODIUM,PORCINE 5,000 UNITS/ML VIAL SQ SCH ×4 (00:27→23:14)
[2022-11-06] MEDS: METOCLOPRAMIDE HCL 5 MG/ML 2 ML VIAL IVP SCH ×4 (00:28→23:14)
[2022-11-06] MEDS: LORazepam 2 MG/ML VIAL IVP PRN ×8 (00:45→23:14)
[2022-11-06] MEDS: PIPERACILLIN/TAZO 3.375 GM/D5W 50 ML IV SCH ×4 (03:37→21:58)
[2022-11-06] MEDS: ALBUMIN HUMAN 25%-25GM/100ML 100 ML IV SCH ×4 (03:37→21:58)
[2022-11-06] MEDS: ACETYLCYSTEINE 10% 100 MG/ML 4 ML NEB SOLUTION NEB SCH ×6 (03:57→22:53)
[2022-11-06] MEDS: ALBUTEROL SULFATE 2.5 MG/0.5 ML NEB SOLUTION NEB SCH ×4 (03:57→19:39)
[2022-11-06] MEDS: IPRATROPIUM BROMIDE 0.5 MG/2.5 ML NEB SOLUTION NEB SCH ×4 (03:58→19:39)
[2022-11-06 04:35] LABS: APPEARANCE,URINE HAZY (CLEAR); BILIRUBIN,URINE NEGATIVE (NEGATIVE); COLOR,URINE YELLOW (YELLOW); GLUCOSE, URINE (UA) NEGATIVE (NEGATIVE); KETONES,URINE NEGATIVE (NEGATIVE); LEUKOCYTE ESTERASE ,URINE MODERATE (NEGATIVE); NITRATE,URINE NEGATIVE (NEGATIVE); OCCULT BLOOD,URINE TRACE (NEGATIVE); PROTEIN,URINE 30-70 mg/dL (NEGATIVE); SPECIFIC GRAVITIY, URINE 1.029 (1.003-1.030); UROBILINOGEN,URINE <=1.0 mg/dL (<=1.0)
[2022-11-06 04:45] LABS: BACTERIA,URINE Moderate /HPF (None Seen); RBC,URINE 0-2 /HPF (0-2); SQUAMOUS EPITHELIAL CELL,UR Few /LPF (None Seen); YEAST,URINE Many /HPF (None Seen)
[2022-11-06 04:47] LABS: URIC ACID CRYSTALS,URINE Few /LPF (None Seen)
[2022-11-06 05:48] LABS: BASOPHILS % (AUTO) 0.7 % (0.0-2.0); EOSINOPHILS % (AUTO) 1.9 % (1.0-6.0); HEMATOCRIT 23.6 % (36-46); HEMOGLOBIN 7.6 g/dL (12.0-16.0); LYMPHOCYTES # (AUTO) 1.4 K/uL (1.0-4.8); LYMPHOCYTES % (AUTO) 10.3 % (22.0-44.0); MEAN CORPUSCULAR HEMOGLOBIN 26.9 pg (26.0-34.0); MEAN CORPUSCULAR HGB CONC 32.1 G/dL (31.0-37.0); MEAN CORPUSCULAR VOLUME 84 fL (80-100); MONOCYTES # (AUTO) 1.3 K/uL (0.1-1.0); MONOCYTES % (AUTO) 9.7 % (2.0-9.0); NEUTROPHILS # (AUTO) 10.7 K/uL (1.8-7.7); NEUTROPHILS % (AUTO) 77.4 % (40.0-70.0); PLATELET COUNT (AUTO) 396 K/uL (150-450); RED BLOOD CELL COUNT(AUTO) 2.81 MIL/uL (4.00-5.20); RED CELL DISTRIBUTION WIDTH 18.6 % (11.5-14.5); WHITE BLOOD COUNT (AUTO) 13.8 K/uL (4.5-11.0)
[2022-11-06 06:01] LABS: ANION GAP 4 mmol/L (8-16); CARBON DIOXIDE 31 mmol/L (22-29); CHLORIDE 101 mmol/L (98-107); CREATININE 0.42 mg/dL (0.60-1.30); GLOMERULAR FILTR. RATE CALC > 60 mL/min (>60); GLUCOSE,RANDOM 99 mg/dL (70-110); POTASSIUM 3.2 mmol/L (3.5-5.1); SODIUM SERUM 147 mmol/L (136-145); UREA NITROGEN, BLOOD 16 mg/dL (7-18)
[2022-11-06 06:05] LABS: VANCOMYCIN,RANDOM 24.5 mcg/mL (25.0-50.0)
[2022-11-06] MEDS: POTASSIUM CHL 10 MEQ/WATER 50 ML IV PRN ×6 (07:03→23:05)
[2022-11-06] MEDS: BUDESONIDE 0.5 MG/2 ML NEB SOLUTION NEB SCH ×2 (08:15→19:39)
[2022-11-06] MEDS: PANTOPRAZOLE SODIUM 40 MG/VIAL IVP SCH (08:31)
[2022-11-06] MEDS: FERROUS SULFATE 300 MG/5 ML LIQUID UDCUP NG SCH ×3 (08:31→20:13)
[2022-11-06] MEDS: ETHYL ALCOHOL 62% ANTISEPTIC NASAL SANITIZER 0.6 ML AMPUL NASAL SCH ×2 (08:32→20:13)
[2022-11-06] MEDS: QUEtiapine FUMARATE 100 MG TABLET PO SCH ×2 (08:32→20:13)
[2022-11-06] MEDS: AmLODIPine BESYLATE 5 MG TABLET PO SCH (08:33)
[2022-11-06] MEDS: ASPIRIN 81 MG CHEWABLE TABLET NG SCH (08:33)
[2022-11-06] MEDS: AMIODARONE HCL 200 MG TABLET PO SCH ×2 (08:37→20:13)
[2022-11-06] MEDS: ACETAMINOPHEN 325 MG TABLET PO PRN ×2 (08:45→19:56)
[2022-11-06] MEDS: DOCUSATE SODIUM 100 MG/10 ML LIQUID UDCUP NG SCH ×2 (09:00→20:13)
[2022-11-06] MEDS: FentaNYL 50 MCG/HOUR PATCH TD SCH (09:22)
[2022-11-06] MEDS: PROPOFOL 1000 MG/ISO-OSM 100 ML IV PRN (09:38)
[2022-11-06] MEDS ORDERED: GADOTERATE MEGLUMINE 10 MMOL/20 ML VIAL IVP ONE (11:51)
[2022-11-06 18:33] LABS: BASOPHILS % (AUTO) 0.7 % (0.0-2.0); EOSINOPHILS % (AUTO) 2.9 % (1.0-6.0); HEMATOCRIT 23.6 % (36-46); HEMOGLOBIN 7.3 g/dL (12.0-16.0); LYMPHOCYTES # (AUTO) 1.4 K/uL (1.0-4.8); LYMPHOCYTES % (AUTO) 10.5 % (22.0-44.0); MEAN CORPUSCULAR HEMOGLOBIN 26.3 pg (26.0-34.0); MEAN CORPUSCULAR HGB CONC 31.2 G/dL (31.0-37.0); MEAN CORPUSCULAR VOLUME 84 fL (80-100); MONOCYTES # (AUTO) 1.4 K/uL (0.1-1.0); MONOCYTES % (AUTO) 9.9 % (2.0-9.0); NEUTROPHILS # (AUTO) 10.5 K/uL (1.8-7.7); PLATELET COUNT (AUTO) 424 K/uL (150-450); RED CELL DISTRIBUTION WIDTH 18.9 % (11.5-14.5); WHITE BLOOD COUNT (AUTO) 13.8 K/uL (4.5-11.0)
[2022-11-06 19:02] LABS: ANION GAP 14 mmol/L (8-16); CALCIUM, TOTAL 10.4 mg/dL (8.8-10.5); CARBON DIOXIDE 29 mmol/L (22-29); CHLORIDE 100 mmol/L (98-107); CREATININE 0.42 mg/dL (0.60-1.30); GLOMERULAR FILTR. RATE CALC > 60 mL/min (>60); GLUCOSE,RANDOM 120 mg/dL (70-110); POTASSIUM 3.2 mmol/L (3.5-5.1); SODIUM SERUM 143 mmol/L (136-145); UREA NITROGEN, BLOOD 17 mg/dL (7-18)
[2022-11-06 19:08] LABS: ALANINE AMINOTRANSFERASE 12 U/L (12-78); ALBUMIN 4.9 g/dL (3.4-5.0); ALKALINE PHOSPHATASE 40 U/L (46-116); ASPARTATE AMINOTRANSFERASE 17 U/L (15-37); BILIRUBIN,TOTAL 0.7 mg/dL (0.1-1.0); TOTAL PROTEIN, SERUM 6.5 g/dL (6.4-8.2)
[2022-11-06] MEDS: SODIUM CHLORIDE 0.45% 1,000 ML IV SCH (19:33)
[2022-11-06] MEDS: IPRATROPIUM BROMIDE 0.5 MG/2.5 ML NEB SOLUTION NEB PRN (22:53)
[2022-11-06] MEDS: ALBUTEROL SULFATE 2.5 MG/0.5 ML NEB SOLUTION NEB PRN (22:53)
[2022-11-07] VITALS (25 sets, daily range): BP systolic 99–163; BP diastolic 52–84; PULSE 72–105; RESP 24–39; TEMP 99.6–99.9; O2SAT 91–95
[2022-11-07] MEDS: LORazepam 2 MG/ML VIAL IVP PRN ×8 (02:05→23:48)
[2022-11-07] MEDS: PIPERACILLIN/TAZO 3.375 GM/D5W 50 ML IV SCH ×4 (03:09→22:04)
[2022-11-07] MEDS: ALBUTEROL SULFATE 2.5 MG/0.5 ML NEB SOLUTION NEB SCH ×4 (03:40→19:06)
[2022-11-07] MEDS: ACETYLCYSTEINE 10% 100 MG/ML 4 ML NEB SOLUTION NEB SCH ×6 (03:40→22:25)
[2022-11-07] MEDS: IPRATROPIUM BROMIDE 0.5 MG/2.5 ML NEB SOLUTION NEB SCH ×4 (03:41→19:06)
[2022-11-07] MEDS: ALBUMIN HUMAN 25%-25GM/100ML 100 ML IV SCH (03:52)
[2022-11-07] MEDS: ACETAMINOPHEN 325 MG TABLET PO PRN ×3 (03:54→14:29)
[2022-11-07 05:44] LABS: BASOPHILS % (AUTO) 0.5 % (0.0-2.0); EOSINOPHILS % (AUTO) 3.6 % (1.0-6.0); HEMATOCRIT 22.7 % (36-46); HEMOGLOBIN 7.1 g/dL (12.0-16.0); LYMPHOCYTES # (AUTO) 1.4 K/uL (1.0-4.8); LYMPHOCYTES % (AUTO) 9.5 % (22.0-44.0); MEAN CORPUSCULAR HGB CONC 31.1 G/dL (31.0-37.0); MEAN CORPUSCULAR VOLUME 84 fL (80-100); MONOCYTES # (AUTO) 1.6 K/uL (0.1-1.0); NEUTROPHILS # (AUTO) 10.9 K/uL (1.8-7.7); NEUTROPHILS % (AUTO) 75.4 % (40.0-70.0); PLATELET COUNT (AUTO) 457 K/uL (150-450); RED BLOOD CELL COUNT(AUTO) 2.72 MIL/uL (4.00-5.20); RED CELL DISTRIBUTION WIDTH 18.6 % (11.5-14.5); WHITE BLOOD COUNT (AUTO) 14.5 K/uL (4.5-11.0)
[2022-11-07 05:51] LABS: ANION GAP 10 mmol/L (8-16); CALCIUM, TOTAL 9.8 mg/dL (8.8-10.5); CARBON DIOXIDE 30 mmol/L (22-29); CHLORIDE 100 mmol/L (98-107); CREATININE 0.38 mg/dL (0.60-1.30); GLOMERULAR FILTR. RATE CALC > 60 mL/min (>60); GLUCOSE,RANDOM 104 mg/dL (70-110); POTASSIUM 3.4 mmol/L (3.5-5.1); SODIUM SERUM 140 mmol/L (136-145); UREA NITROGEN, BLOOD 16 mg/dL (7-18)
[2022-11-07] MEDS: BUDESONIDE 0.5 MG/2 ML NEB SOLUTION NEB SCH ×2 (07:10→19:21)
[2022-11-07] MEDS: POTASSIUM CHL 10 MEQ/WATER 50 ML IV PRN ×2 (07:48→09:15)
[2022-11-07] MEDS: VANCOMYCIN HCL 750 MG in DEXTROSE 5%-WATER 250 ML IV SCH ×3 (08:14→23:27)
[2022-11-07] MEDS: ETHYL ALCOHOL 62% ANTISEPTIC NASAL SANITIZER 0.6 ML AMPUL NASAL SCH (08:15)
[2022-11-07] MEDS: HEPARIN SODIUM,PORCINE 5,000 UNITS/ML VIAL SQ SCH ×3 (08:15→23:27)
[2022-11-07] MEDS: PANTOPRAZOLE SODIUM 40 MG/VIAL IVP SCH (08:15)
[2022-11-07] MEDS: METOCLOPRAMIDE HCL 5 MG/ML 2 ML VIAL IVP SCH ×2 (08:16→15:16)
[2022-11-07] MEDS: DOCUSATE SODIUM 100 MG/10 ML LIQUID UDCUP NG SCH ×2 (09:00→21:00)
[2022-11-07] MEDS: QUEtiapine FUMARATE 100 MG TABLET PO SCH ×2 (09:53→20:31)
[2022-11-07] MEDS: ASPIRIN 81 MG CHEWABLE TABLET NG SCH (09:53)
[2022-11-07] MEDS: FERROUS SULFATE 300 MG/5 ML LIQUID UDCUP NG SCH ×3 (09:53→20:31)
[2022-11-07] MEDS: AmLODIPine BESYLATE 5 MG TABLET PO SCH (09:53)
[2022-11-07] MEDS: AMIODARONE HCL 200 MG TABLET PO SCH ×2 (09:54→20:31)
[2022-11-07] MEDS ORDERED: POTASSIUM CHLORIDE 10% 40 MEQ/30 ML LIQUID UDCUP PEG PRN (10:00)
[2022-11-07] MEDS ORDERED: POTASSIUM CHL 10 MEQ/WATER 50 ML IV PRN (10:00)
[2022-11-07] MEDS ORDERED: FENTANYL TD SCH (10:00)
[2022-11-07] MEDS: ALBUTEROL SULFATE 2.5 MG/0.5 ML NEB SOLUTION NEB PRN (10:23)
[2022-11-07] MEDS: IPRATROPIUM BROMIDE 0.5 MG/2.5 ML NEB SOLUTION NEB PRN (10:23)
[2022-11-07] MEDS: POTASSIUM CHLORIDE 10% 40 MEQ/30 ML LIQUID UDCUP PEG PRN (16:26)
[2022-11-07] MEDS ORDERED: LORazepam 0.5 MG TABLET PO PRN (17:30)
[2022-11-07] MEDS: BENZTROPINE MESYLATE 1 MG TABLET PO SCH (20:31)
[2022-11-08] VITALS (29 sets, daily range): BP systolic 101–158; BP diastolic 41–89; PULSE 69–101; RESP 23–36; TEMP 99.5–100.2; O2SAT 92–95
[2022-11-08] MEDS: ACETYLCYSTEINE 10% 100 MG/ML 4 ML NEB SOLUTION NEB SCH ×6 (02:02→22:02)
[2022-11-08] MEDS: IPRATROPIUM BROMIDE 0.5 MG/2.5 ML NEB SOLUTION NEB SCH ×4 (02:03→19:06)
[2022-11-08] MEDS: ALBUTEROL SULFATE 2.5 MG/0.5 ML NEB SOLUTION NEB SCH ×4 (02:03→19:06)
[2022-11-08] MEDS: PIPERACILLIN/TAZO 3.375 GM/D5W 50 ML IV SCH ×4 (04:34→21:04)
[2022-11-08 05:46] LABS: BASOPHILS % (AUTO) 0.7 % (0.0-2.0); EOSINOPHILS % (AUTO) 4.6 % (1.0-6.0); HEMATOCRIT 21.9 % (36-46); LYMPHOCYTES # (AUTO) 1.4 K/uL (1.0-4.8); MEAN CORPUSCULAR HEMOGLOBIN 26.5 pg (26.0-34.0); MEAN CORPUSCULAR HGB CONC 31.6 G/dL (31.0-37.0); MEAN CORPUSCULAR VOLUME 84 fL (80-100); MONOCYTES # (AUTO) 1.6 K/uL (0.1-1.0); MONOCYTES % (AUTO) 12.5 % (2.0-9.0); NEUTROPHILS # (AUTO) 9.1 K/uL (1.8-7.7); NEUTROPHILS % (AUTO) 71.2 % (40.0-70.0); PLATELET COUNT (AUTO) 419 K/uL (150-450); RED BLOOD CELL COUNT(AUTO) 2.61 MIL/uL (4.00-5.20); RED CELL DISTRIBUTION WIDTH 18.5 % (11.5-14.5); WHITE BLOOD COUNT (AUTO) 12.8 K/uL (4.5-11.0)
[2022-11-08 05:47] LABS: ANION GAP 8 mmol/L (8-16); CALCIUM, TOTAL 9.7 mg/dL (8.8-10.5); CARBON DIOXIDE 32 mmol/L (22-29); CHLORIDE 101 mmol/L (98-107); CREATININE 0.42 mg/dL (0.60-1.30); GLOMERULAR FILTR. RATE CALC > 60 mL/min (>60); GLUCOSE,RANDOM 109 mg/dL (70-110); POTASSIUM 3.5 mmol/L (3.5-5.1); SODIUM SERUM 141 mmol/L (136-145); UREA NITROGEN, BLOOD 18 mg/dL (7-18)
[2022-11-08 05:53] LABS: HEMOGLOBIN 6.9 g/dL (12.0-16.0)
[2022-11-08] MEDS: BUDESONIDE 0.5 MG/2 ML NEB SOLUTION NEB SCH ×2 (07:25→19:06)
[2022-11-08] MEDS: HEPARIN SODIUM,PORCINE 5,000 UNITS/ML VIAL SQ SCH ×3 (08:00→16:00)
[2022-11-08] MEDS: VANCOMYCIN HCL 750 MG in DEXTROSE 5%-WATER 250 ML IV SCH ×2 (08:08→16:28)
[2022-11-08] MEDS: PANTOPRAZOLE SODIUM 40 MG/VIAL IVP SCH (08:08)
[2022-11-08] MEDS: ASPIRIN 81 MG CHEWABLE TABLET NG SCH ×2 (08:08→09:00)
[2022-11-08] MEDS: FERROUS SULFATE 300 MG/5 ML LIQUID UDCUP NG SCH ×3 (08:09→21:04)
[2022-11-08] MEDS: AmLODIPine BESYLATE 5 MG TABLET PO SCH (08:09)
[2022-11-08] MEDS: AMIODARONE HCL 200 MG TABLET PO SCH ×2 (08:09→21:04)
[2022-11-08] MEDS: BENZTROPINE MESYLATE 1 MG TABLET PO SCH ×3 (08:09→21:04)
[2022-11-08] MEDS: QUEtiapine FUMARATE 100 MG TABLET PO SCH ×2 (08:09→21:51)
[2022-11-08] MEDS: FluPHENAZine HCL 10 MG TABLET PO SCH (08:09)
[2022-11-08] MEDS: DOCUSATE SODIUM 100 MG/10 ML LIQUID UDCUP NG SCH ×2 (08:10→21:00)
[2022-11-08] MEDS ORDERED: SODIUM CHLORIDE 0.9% 250 ML IV ONE (09:56)
[2022-11-08] MEDS: LORazepam 2 MG/ML VIAL IVP PRN ×3 (10:40→20:50)
[2022-11-08] MEDS: IPRATROPIUM BROMIDE 0.5 MG/2.5 ML NEB SOLUTION NEB PRN (10:58)
[2022-11-08] MEDS: ALBUTEROL SULFATE 2.5 MG/0.5 ML NEB SOLUTION NEB PRN (10:58)
[2022-11-08] MEDS: POTASSIUM CHLORIDE 10% 40 MEQ/30 ML LIQUID UDCUP PEG PRN (13:38)
[2022-11-08 16:43] LABS: BASOPHILS % (AUTO) 0.6 % (0.0-2.0); EOSINOPHILS % (AUTO) 4.4 % (1.0-6.0); HEMATOCRIT 25.8 % (36-46); HEMOGLOBIN 8.3 g/dL (12.0-16.0); LYMPHOCYTES # (AUTO) 1.3 K/uL (1.0-4.8); LYMPHOCYTES % (AUTO) 9.7 % (22.0-44.0); MEAN CORPUSCULAR HEMOGLOBIN 27.2 pg (26.0-34.0); MEAN CORPUSCULAR HGB CONC 32.1 G/dL (31.0-37.0); MEAN CORPUSCULAR VOLUME 85 fL (80-100); MONOCYTES # (AUTO) 1.6 K/uL (0.1-1.0); MONOCYTES % (AUTO) 11.3 % (2.0-9.0); NEUTROPHILS # (AUTO) 10.3 K/uL (1.8-7.7); PLATELET COUNT (AUTO) 423 K/uL (150-450); RED BLOOD CELL COUNT(AUTO) 3.05 MIL/uL (4.00-5.20); RED CELL DISTRIBUTION WIDTH 18.3 % (11.5-14.5); WHITE BLOOD COUNT (AUTO) 13.9 K/uL (4.5-11.0)
[2022-11-08] MEDS: ACETAMINOPHEN 325 MG TABLET PO PRN (17:14)
[2022-11-09] VITALS (14 sets, daily range): BP systolic 102–151; BP diastolic 51–74; PULSE 70–97; RESP 19–38; TEMP 99.4–99.8; O2SAT 93–98
[2022-11-09] MEDS: HEPARIN SODIUM,PORCINE 5,000 UNITS/ML VIAL SQ SCH ×2 (00:24→08:30)
[2022-11-09] MEDS: VANCOMYCIN HCL 750 MG in DEXTROSE 5%-WATER 250 ML IV SCH ×2 (00:24→09:01)
[2022-11-09] MEDS: IPRATROPIUM BROMIDE 0.5 MG/2.5 ML NEB SOLUTION NEB SCH ×2 (01:02→07:07)
[2022-11-09] MEDS: ALBUTEROL SULFATE 2.5 MG/0.5 ML NEB SOLUTION NEB SCH ×2 (01:03→07:07)
[2022-11-09] MEDS: PIPERACILLIN/TAZO 3.375 GM/D5W 50 ML IV SCH ×2 (03:05→09:02)
[2022-11-09] MEDS: LORazepam 2 MG/ML VIAL IVP PRN (03:06)
[2022-11-09] MEDS: ACETYLCYSTEINE 10% 100 MG/ML 4 ML NEB SOLUTION NEB SCH ×3 (03:48→10:05)
[2022-11-09 06:13] LABS: ANION GAP 12 mmol/L (8-16); CALCIUM, TOTAL 9.5 mg/dL (8.8-10.5); CARBON DIOXIDE 33 mmol/L (22-29); CHLORIDE 102 mmol/L (98-107); CREATININE 0.44 mg/dL (0.60-1.30); GLOMERULAR FILTR. RATE CALC > 60 mL/min (>60); GLUCOSE,RANDOM 106 mg/dL (70-110); POTASSIUM 4.1 mmol/L (3.5-5.1); SODIUM SERUM 147 mmol/L (136-145); UREA NITROGEN, BLOOD 19 mg/dL (7-18); VANCOMYCIN,RANDOM 24.8 mcg/mL (25.0-50.0)
[2022-11-09] MEDS: BUDESONIDE 0.5 MG/2 ML NEB SOLUTION NEB SCH (07:07)
[2022-11-09] MEDS: DOCUSATE SODIUM 100 MG/10 ML LIQUID UDCUP NG SCH (08:29)
[2022-11-09] MEDS: AmLODIPine BESYLATE 5 MG TABLET PO SCH (08:29)
[2022-11-09] MEDS: QUEtiapine FUMARATE 100 MG TABLET PO SCH (08:30)
[2022-11-09] MEDS: AMIODARONE HCL 200 MG TABLET PO SCH (08:30)
[2022-11-09] MEDS: PANTOPRAZOLE SODIUM 40 MG/VIAL IVP SCH (08:30)
[2022-11-09] MEDS: ASPIRIN 81 MG CHEWABLE TABLET NG SCH (08:31)
[2022-11-09] MEDS: FluPHENAZine HCL 10 MG TABLET PO SCH (08:31)
[2022-11-09] MEDS: FERROUS SULFATE 300 MG/5 ML LIQUID UDCUP NG SCH (08:36)
[2022-11-09] MEDS: BENZTROPINE MESYLATE 1 MG TABLET PO SCH (09:01)
[2022-11-09] MEDS: ALBUTEROL SULFATE 2.5 MG/0.5 ML NEB SOLUTION NEB PRN (10:06)
[2022-11-09] MEDS: IPRATROPIUM BROMIDE 0.5 MG/2.5 ML NEB SOLUTION NEB PRN (10:06)
[2022-11-09] MEDS ORDERED: FLUCONAZOLE 200 MG/NACL ISOOSM 100 ML IV SCH (12:00)
== END 2022-11-09 14:35 | DRG 4 ==
LOC: EMS 17:09 → ICU 19:00
PROVIDERS: ADMIT Internal Medicine; ATTEND Internal Medicine
PROC: 5A1955Z Respiratory Ventilation, Greater than 96 Consecutive Hours (ICD-10-PCS; principal; 2022-10-13)
PROC: 0BH17EZ Insertion of Endotracheal Airway into Trachea, Via Natural or Artificial Opening (ICD-10-PCS; 2022-10-13)
PROC: 0W9D30Z Drainage of Pericardial Cavity with Drainage Device, Percutaneous Approach (ICD-10-PCS; 2022-10-17)
PROC: 05HA33Z Insertion of Infusion Device into Left Brachial Vein, Percutaneous Approach (ICD-10-PCS; 2022-10-17)
PROC: 05H933Z Insertion of Infusion Device into Right Brachial Vein, Percutaneous Approach (ICD-10-PCS; 2022-10-17)
PROC: 05HA33Z Insertion of Infusion Device into Left Brachial Vein, Percutaneous Approach (ICD-10-PCS; 2022-10-24)
PROC: 0W993ZZ Drainage of Right Pleural Cavity, Percutaneous Approach (ICD-10-PCS; 2022-10-26)
PROC: 0W993ZZ Drainage of Right Pleural Cavity, Percutaneous Approach (ICD-10-PCS; 2022-10-27)
PROC: 0B9J8ZZ Drainage of Left Lower Lung Lobe, Via Natural or Artificial Opening Endoscopic (ICD-10-PCS; 2022-10-30)
PROC: 0B113F4 Bypass Trachea to Cutaneous with Tracheostomy Device, Percutaneous Approach (ICD-10-PCS; 2022-10-30)
PROC: 0DH63UZ Insertion of Feeding Device into Stomach, Percutaneous Approach (ICD-10-PCS; 2022-11-01)
PROC: 30233N1 Transfusion of Nonautologous Red Blood Cells into Peripheral Vein, Percutaneous Approach (ICD-10-PCS; 2022-11-08)
DX: A41.9 Sepsis, unspecified organism (principal); G92.8 Other toxic encephalopathy; J96.01 Acute respiratory failure with hypoxia; J69.0 Pneumonitis due to inhalation of food and vomit; J96.02 Acute respiratory failure with hypercapnia; E44.0 Moderate protein-calorie malnutrition; E72.20 Disorder of urea cycle metabolism, unspecified; E87.1 Hypo-osmolality and hyponatremia; F10.939 Alcohol use, unspecified with withdrawal, unspecified; E87.29 Other acidosis; I31.39 Other pericardial effusion (noninflammatory); I48.92 Unspecified atrial flutter; J90 Pleural effusion, not elsewhere classified; I47.1 Supraventricular tachycardia; R18.8 Other ascites; I82.611 Acute embolism and thrombosis of superficial veins of right upper extremity; Z20.822 Contact with and (suspected) exposure to COVID-19; F31.9 Bipolar disorder, unspecified; I95.9 Hypotension, unspecified; J44.9 Chronic obstructive pulmonary disease, unspecified; K20.90 Esophagitis, unspecified without bleeding; K29.70 Gastritis, unspecified, without bleeding; I10 Essential (primary) hypertension; F25.9 Schizoaffective disorder, unspecified; R16.1 Splenomegaly, not elsewhere classified; D50.9 Iron deficiency anemia, unspecified; I82.463 Acute embolism and thrombosis of calf muscular vein, bilateral; F17.210 Nicotine dependence, cigarettes, uncomplicated; D63.8 Anemia in other chronic diseases classified elsewhere; I48.0 Paroxysmal atrial fibrillation; R13.10 Dysphagia, unspecified; Z79.01 Long term (current) use of anticoagulants; Z79.899 Other long term (current) drug therapy; Z68.25 Body mass index [BMI] 25.0-25.9, adult
CPT/HCPCS: 31624; 32555; 33010; 36245; 36569; 36600; 51702; 70450; 71045; 71250; 74177; 74183; 76937; 76942; 78806; 80048; 80053; 80202; 80307; 81001; 81002; 82009; 82140; 82271; 82465; 82550; 82570; 82805; 82945; 83540; 83550; 83605; 83615; 83690; 83735; 83880; 83930; 83935; 83986; 84100; 84132; 84156; 84157; 84300; 84443; 84484; 85025; 85610; 85730; 86850; 86900; 86901; 86923; 87015; 87040; 87070; 87075; 87081; 87086; 87101; 87186; 87205; 87206; 87220; 87252; 87324; 87449; 87804; 88112; 88305; 89051; 93005; 93306; 93308; 93970; 93971; 94002; 94003; 94640; 99291; A9547; C9113; G0378; G0480; J0131; J0153; J0171; J0282; J0360; J0456; J0461; J0610; J0696; J1160; J1200; J1450; J1644; J1956; J2060; J2250; J2310; J2543; J2704; J2765; J3370; J3480; J3490; J7040; J7042; J7050; J7060; P9016; P9046; Q9967; 36415-L1; 36415-TC; J7613

== ENCOUNTER 2024-09-13 12:08 | Inpatient (IN) | payer MEDICARE, OTHER ==
[2024-09-13] VITALS (8 sets, daily range): PULSE 64–90; RESP 20–23; O2SAT 88–100
[~2024-09-13] VITALS: Ht 162.6 cm; Wt 66.0 kg
[~2024-09-13 12:08] MED LIST changes: +ALBU18HF12 IH; +APIX5TAB PO; +ARIP15TA27 PO; +BENZ-247 PO; +FLUP10TA8 PO; +FLUT1BLS3 IH; +KETO15CR2 TP; +LORA0.5T20 PO; +LOSA-382 PO; +MELO-108 PO; -MULT-1239 PO; +MULT-1366 PO; +NICO-703 TD; -PALI6TAB15 PO; -SULF1TAB42 PO; +THIA100T92 PO; +TRAZ-252 PO
[2024-09-13 12:29] LABS: PLATELET COUNT (AUTO) 186 K/uL (150-450); RED BLOOD CELL COUNT(AUTO) 4.41 MIL/uL (4.00-5.20); RED CELL DISTRIBUTION WIDTH 17.0 % (11.5-14.5); WHITE BLOOD COUNT (AUTO) 10.4 K/uL (4.5-11.0)
[2024-09-13 12:41] LABS: CALCIUM, TOTAL 7.7 mg/dL (8.8-10.5); CREATININE 1.89 mg/dL (0.60-1.30); GLOMERULAR FILTR. RATE CALC 26 mL/min (>60); GLUCOSE,RANDOM 171 mg/dL (70-110); SODIUM SERUM 136 mmol/L (136-145); UREA NITROGEN, BLOOD 83 mg/dL (7-18)
[2024-09-13] MEDS ORDERED: DIVA-85 PO (12:42)
[2024-09-13] MEDS ORDERED: QUET200T30 PO (12:42)
[2024-09-13] MEDS: SODIUM CHLORIDE 0.9% 1,000 ML IV ONE (12:45)
[2024-09-13 12:47] LABS: ALCOHOL, BLOOD (SERUM) < 3 mg/dL (0-10)
[2024-09-13] MEDS: PROPOFOL 1000 MG/ISO-OSM 100 ML IV PRN ×2 (12:47→21:51)
[2024-09-13 12:48] LABS: TROPONIN I-HIGH SENSITIVITY 25 ng/L (<51)
[2024-09-13 13:00] LABS: LACTIC ACID 2.3 mmol/L (0.4-2.0)
[2024-09-13 13:08] LABS: ASPARTATE AMINOTRANSFERASE 505 U/L (15-37); CREATINE KINASE, TOTAL ONLY 29 U/L (26-192); TOTAL PROTEIN, SERUM 5.5 g/dL (6.4-8.2)
[2024-09-13] MEDS: PANTOPRAZOLE SODIUM 80 MG in SODIUM CHLORIDE 0.9% 100 ML IV SCH ×2 (13:19→21:07)
[2024-09-13] MEDS: PANTOPRAZOLE SODIUM 40 MG/VIAL IVP ONE (13:20)
[2024-09-13] MEDS ORDERED: DEXTROSE 50%-WATER 25 GM/50 ML SYRINGE IVP PRN (13:30)
[2024-09-13] MEDS ORDERED: 0.9% SODIUM CHLORIDE 10 ML SYRINGE IVP PRN (13:30)
[2024-09-13] MEDS ORDERED: SODIUM CHLORIDE 0.9% 1,900 ML IV ONE (13:30)
[2024-09-13] MEDS ORDERED: ONDANSETRON HCL 4 MG/2 ML VIAL IVP PRN (13:30)
[2024-09-13 13:37] LABS: ABG BASE EXCESS 5.0 mmol/L (-2.0-3.0); ABG CARBOXYHEMOGLOBIN 1.4 % (0.5-1.5); ABG HCO3 28.0 mmol/L (21.0-28.0); ABG METHEMOGLOBIN 1.0 % (0.0-1.5); ABG OXYGEN CONTENT 19.4 mL/dL (15.0-23.0); ABG OXYGEN SATURATION 99.7 % (94.0-98.0); ABG OXYHEMOGLOBIN 97.3 % (94.0-98.0); ABG PCO2 51 mmHg (32.0-45.0); ABG PH 7.385 (7.350-7.450); ABG TOTAL HEMOGLOBIN 13.5 G/dL (12.0-16.0); FRACTIONATED INSPIRED OXYGEN 100.0 % (21-100.0); SOURCE, BLOOD GAS ARTERIAL; TEMPERATURE, FAHRENHEIT, BG 97.9 FAHREN (96.0-98.6)
[2024-09-13 13:38] LABS: ALLEN TEST, BLOOD GAS POS; PO2, ARTERIAL BG 370.4 mmHg (83.0-108.0); SITE, BLOOD GAS LFT RADIAL
[2024-09-13 13:39] LABS: O2 DEVICE,BLOOD GAS VENTILATOR (ROOM AIR); PATIENT RATE, BG 20.0 min.; PEEP,BG 5 cm H2O; SET RATE, BG 20.0 min.; VENT MODE, BG A (ROOM AIR); VT, ABG 380 ml
[2024-09-13 14:00] LABS: CALCIUM, TOTAL 8.0 mg/dL (8.8-10.5); CREATININE 1.85 mg/dL (0.60-1.30); GLOMERULAR FILTR. RATE CALC 27.0 mL/min (>60); GLUCOSE,RANDOM 141.0 mg/dL (70-110); SODIUM SERUM 139.0 mmol/L (136-145); UREA NITROGEN, BLOOD 82.0 mg/dL (7-18)
[2024-09-13 14:05] LABS: ASPARTATE AMINOTRANSFERASE 566.0 U/L (15-37); LACTATE DEHYDROGENASE 634.0 U/L (81-234); TOTAL PROTEIN, SERUM 5.6 g/dL (6.4-8.2)
[2024-09-13 14:12] LABS: COVID AG,FIA SOURCE NASAL SWAB
[2024-09-13 14:18] LABS: CREATININE,URINE RANDOM 260.6 mg/dL (30.0-125.0)
[2024-09-13 14:19] LABS: APPEARANCE,URINE HAZY (CLEAR); GLUCOSE, URINE (UA) NEGATIVE (NEGATIVE); LEUKOCYTE ESTERASE ,URINE NEGATIVE (NEGATIVE); NITRATE,URINE NEGATIVE (NEGATIVE); OCCULT BLOOD,URINE NEGATIVE (NEGATIVE); PH,URINE DRUG SCREEN 5.0 (5.0-8.0); SPECIFIC GRAVITIY, URINE 1.019 (1.003-1.030)
[2024-09-13 14:29] LABS: ALCOHOL, URINE DRUG SCREEN NEGATIVE (NEGATIVE); AMPHET/METH SCREEN,URINE NEGATIVE (NEGATIVE); BARBITURATE SCREEN, URINE NEGATIVE (NEGATIVE); CANNABINOID SCREEN,URINE NEGATIVE (NEGATIVE); COCAINE SCREEN,URINE NEGATIVE (NEGATIVE); METHADONE SCREEN, URINE NEGATIVE (NEGATIVE)
[2024-09-13 14:40] LABS: SARS-COV2 (COVID) ANTIGEN,FIA Negative (Negative)
[2024-09-13 14:41] LABS: INFLUENZA TYPE A NEGATIVE FOR TYPE A (NEGATIVE); INFLUENZA TYPE B NEGATIVE FOR TYPE B (NEGATIVE)
[2024-09-13] MEDS: CefTRIAXone 1 GM/DEXTROSE 50 ML IV SCH (15:03)
[2024-09-13] MEDS: FentaNYL CIT 1000MCG/0.9% NACL 100 ML IV PRN (15:03)
[2024-09-13] MEDS ORDERED: HEPARIN SODIUM,PORCINE 5,000 UNITS/ML VIAL SQ SCH (16:00)
[2024-09-13 16:40] LABS: GLUCOMETER DEV NAME(LOC) ERT.7; GLUCOSE,POINT OF CARE 121 MG/DL (70-110)
[2024-09-13] MEDS: CALCIUM GLUCONATE 1,000 MG in DEXTROSE 5%-WATER 50 ML IV ONE (16:44)
[2024-09-13] MEDS: DEXTROSE 50%-WATER 25 GM/50 ML SYRINGE IVP ONE (16:45)
[2024-09-13] MEDS: INSULIN REGULAR, HUMAN 100 UNITS/ML IVP ONE (16:47)
[2024-09-13 16:54] LABS: TROPONIN I-HIGH SENSITIVITY 28 ng/L (<51)
[2024-09-13] MEDS: ALBUTEROL SULFATE 2.5 MG/0.5 ML NEB SOLUTION NEB ONE (17:00)
[2024-09-13] MEDS: DOXYCYCLINE HYCLATE 100 MG in DEXTROSE 5%-WATER 100 ML IV SCH (17:40)
[2024-09-13 19:06] LABS: GLUCOMETER DEV NAME(LOC) ERT.7; GLUCOSE,POINT OF CARE 211 MG/DL (70-110)
[2024-09-13 19:15] LABS: CALCIUM, TOTAL 8.0 mg/dL (8.8-10.5); CREATININE 1.76 mg/dL (0.60-1.30); GLOMERULAR FILTR. RATE CALC 28.0 mL/min (>60); GLUCOSE,RANDOM 242.0 mg/dL (70-110); SODIUM SERUM 135.0 mmol/L (136-145); UREA NITROGEN, BLOOD 78.0 mg/dL (7-18)
[2024-09-13] MEDS: DOCUSATE SODIUM 100 MG CAPSULE PO SCH (20:02)
[2024-09-13 20:30] LABS: TROPONIN I-HIGH SENSITIVITY 29 ng/L (<51)
[2024-09-13] MEDS: CHLORHEXIDINE GLUCONATE 2% TOWELETTE [2'S/6'S] TP SCH (21:24)
[2024-09-14] VITALS (14 sets, daily range): BP systolic 88–101; BP diastolic 51–70; PULSE 58–73; RESP 22–23; TEMP 98–99.8; O2SAT 50–98
[2024-09-14] MEDS: RINGERS SOLUTION,LACTATED 500 ML IV ONE (01:27)
[2024-09-14] MEDS ORDERED: RINGERS SOLUTION,LACTATED 1,000 ML IV SCH (03:00)
[2024-09-14] MEDS: SODIUM CHLORIDE 0.9% 1,000 ML IV ONE (04:11)
[2024-09-14] MEDS ORDERED: SODIUM CHLORIDE 0.9% 250 ML IV ONE (05:16)
[2024-09-14 06:13] LABS: CALCIUM, TOTAL 8.2 mg/dL (8.8-10.5); CREATININE 1.2 mg/dL (0.60-1.30); GLOMERULAR FILTR. RATE CALC 44.0 mL/min (>60); GLUCOSE,RANDOM 91.0 mg/dL (70-110); SODIUM SERUM 142.0 mmol/L (136-145); UREA NITROGEN, BLOOD 66.0 mg/dL (7-18)
[2024-09-14 06:14] LABS: PLATELET COUNT (AUTO) 176 K/uL (150-450); RED BLOOD CELL COUNT(AUTO) 4.49 MIL/uL (4.00-5.20); RED CELL DISTRIBUTION WIDTH 16.5 % (11.5-14.5); WHITE BLOOD COUNT (AUTO) 8.6 K/uL (4.5-11.0)
[2024-09-14 06:24] LABS: ASPARTATE AMINOTRANSFERASE 263.0 U/L (15-37); TOTAL PROTEIN, SERUM 4.8 g/dL (6.4-8.2)
[2024-09-14 06:36] LABS: GLUCOMETER DEV NAME(LOC) ICUN.5; GLUCOSE,POINT OF CARE 120 MG/DL (70-110)
[2024-09-14] MEDS ORDERED: NOREPINEPHRINE 8 MG/0.9 % NACL 250 ML IV PRN ×2 (08:45→12:15)
[2024-09-14] MEDS: PIPERACILLIN SODIUM/TAZOBACTAM 2.25 GM in DEXTROSE 5%-WATER 50 ML IV SCH (13:24)
[2024-09-14] MEDS ORDERED: IOHEXOL 300 MG/ML 100 ML VIAL ONE (13:58)
[2024-09-14] MEDS ORDERED: 0.9% SODIUM CHLORIDE 10 ML SYRINGE IVP ONE (13:58)
[2024-09-14] MEDS ORDERED: SODIUM CHLORIDE 0.9% 100 ML ONE (13:59)
[2024-09-14 17:00] LABS: GLUCOMETER DEV NAME(LOC) PVLAB.55; GLUCOSE,POINT OF CARE 86 MG/DL (70-110)
[2024-09-14] MEDS: RINGERS SOLUTION,LACTATED 1,000 ML IV ONE (18:59)
[2024-09-15] VITALS (14 sets, daily range): BP systolic 109–137; BP diastolic 54–78; PULSE 52–83; RESP 22–24; TEMP 98.7–99.1; O2SAT 94–98
[2024-09-15 00:30] LABS: GLUCOMETER DEV NAME(LOC) PVLAB.55; GLUCOSE,POINT OF CARE 94 MG/DL (70-110)
[2024-09-15 06:12] LABS: PLATELET COUNT (AUTO) 173 K/uL (150-450); RED BLOOD CELL COUNT(AUTO) 4.61 MIL/uL (4.00-5.20); RED CELL DISTRIBUTION WIDTH 16.6 % (11.5-14.5); WHITE BLOOD COUNT (AUTO) 11.2 K/uL (4.5-11.0)
[2024-09-15 06:16] LABS: CALCIUM, TOTAL 8.0 mg/dL (8.8-10.5); CREATININE 0.82 mg/dL (0.60-1.30); GLOMERULAR FILTR. RATE CALC > 60 mL/min (>60); GLUCOSE,RANDOM 91 mg/dL (70-110); SODIUM SERUM 142 mmol/L (136-145); UREA NITROGEN, BLOOD 31 mg/dL (7-18)
[2024-09-15 06:25] LABS: GLUCOMETER DEV NAME(LOC) PVLAB.55; GLUCOSE,POINT OF CARE 130 MG/DL (70-110)
[2024-09-15 08:46] LABS: GLUCOMETER DEV NAME(LOC) ICUN.5; GLUCOSE,POINT OF CARE 105 MG/DL (70-110)
[2024-09-15 12:29] LABS: PLATELET COUNT (AUTO) 173 K/uL (150-450); RED BLOOD CELL COUNT(AUTO) 4.78 MIL/uL (4.00-5.20); RED CELL DISTRIBUTION WIDTH 16.8 % (11.5-14.5); WHITE BLOOD COUNT (AUTO) 12.8 K/uL (4.5-11.0)
[2024-09-15] MEDS: PANTOPRAZOLE SODIUM 40 MG/VIAL IVP SCH (12:45)
[2024-09-15] MEDS: RINGERS SOLUTION,LACTATED 1,000 ML IV SCH (12:46)
[2024-09-15] MEDS: NOREPINEPHRINE 8 MG/0.9 % NACL 250 ML IV PRN (12:47)
[2024-09-15] MEDS: HEPARIN SODIUM,PORCINE 5,000 UNITS/ML VIAL IVP ONE (13:48)
[2024-09-15] MEDS: HEPARIN SODIUM 25000 UNITS/D5W 250 ML IV PRN (13:49)
[2024-09-15 13:56] LABS: GLUCOMETER DEV NAME(LOC) ICU.S6; GLUCOSE,POINT OF CARE 104 MG/DL (70-110)
[2024-09-15] MEDS: ALBUMIN HUMAN 25%-25GM/100ML 100 ML IV SCH (15:17)
[2024-09-15 16:05] LABS: ABG BASE EXCESS -1.4 mmol/L (-2.0-3.0); ABG CARBOXYHEMOGLOBIN 1.1 % (0.5-1.5); ABG HCO3 22.1 mmol/L (21.0-28.0); ABG METHEMOGLOBIN 0.2 % (0.0-1.5); ABG OXYGEN CONTENT 17.2 mL/dL (15.0-23.0); ABG OXYGEN SATURATION 92.8 % (94.0-98.0); ABG OXYHEMOGLOBIN 91.6 % (94.0-98.0); ABG TOTAL HEMOGLOBIN 13.3 G/dL (12.0-16.0); FRACTIONATED INSPIRED OXYGEN 40.0 % (21-100.0); PO2, ARTERIAL BG 74.5 mmHg (83.0-108.0); SOURCE, BLOOD GAS ARTERIAL; TEMPERATURE, FAHRENHEIT, BG 98.8 FAHREN (96.0-98.6)
[2024-09-15 17:11] LABS: ABG PH 7.214 (7.350-7.450)
[2024-09-15 17:12] LABS: ABG PCO2 67 mmHg (32.0-45.0); ALLEN TEST, BLOOD GAS Positive; O2 DEVICE,BLOOD GAS VENTILATOR (ROOM AIR); PATIENT RATE, BG 24.0 min.; PEEP,BG 5 cm H2O; PRESSURE SUPPORT, BG 5 cm H2O; SITE, BLOOD GAS RT RADIAL; SPONTANEOUS VT, BG 395 ml; VENT MODE, BG Press. Support Vent. (ROOM AIR)
[2024-09-15] MEDS: PIPERACILLIN/TAZO 3.375 GM/D5W 50 ML IV SCH (17:41)
[2024-09-15 18:26] LABS: GLUCOMETER DEV NAME(LOC) ICU.S6; GLUCOSE,POINT OF CARE 121 MG/DL (70-110)
[2024-09-15] MEDS: DOCUSATE SODIUM 100 MG/10 ML LIQUID UDCUP GT SCH (20:16)
[2024-09-15] MEDS: RINGERS SOLUTION,LACTATED 500 ML IV ONE (23:55)
[2024-09-16] VITALS (14 sets, daily range): BP systolic 118–162; BP diastolic 51–76; PULSE 45–67; RESP 16–25; TEMP 98.1–99.4; O2SAT 94–99
[2024-09-16 01:07] LABS: HEPATITIS B CORE IGM Negative (Negative); HEPATITIS C AB (EIA) Non Reactive (Non Reactive)
[2024-09-16 02:10] LABS: GLUCOMETER DEV NAME(LOC) ICU.S6; GLUCOSE,POINT OF CARE 109 MG/DL (70-110)
[2024-09-16 05:55] LABS: PLATELET COUNT (AUTO) 143 K/uL (150-450); RED BLOOD CELL COUNT(AUTO) 4.14 MIL/uL (4.00-5.20); RED CELL DISTRIBUTION WIDTH 16.9 % (11.5-14.5); WHITE BLOOD COUNT (AUTO) 8.7 K/uL (4.5-11.0)
[2024-09-16 06:02] LABS: CALCIUM, TOTAL 8.2 mg/dL (8.8-10.5); CREATININE 0.57 mg/dL (0.60-1.30); GLOMERULAR FILTR. RATE CALC > 60 mL/min (>60); GLUCOSE,RANDOM 101 mg/dL (70-110); SODIUM SERUM 145 mmol/L (136-145); UREA NITROGEN, BLOOD 13 mg/dL (7-18)
[2024-09-16 08:31] LABS: GLUCOMETER DEV NAME(LOC) ICU.S6; GLUCOSE,POINT OF CARE 95 MG/DL (70-110)
[2024-09-16] MEDS: MIDODRINE HCL 5 MG TABLET PO SCH (09:00)
[2024-09-16] MEDS: DEXAMETHASONE SOD PHOS 4 MG/ML VIAL IVP ONE (09:17)
[2024-09-16 09:55] LABS: ABG BASE EXCESS 2.3 mmol/L (-2.0-3.0); ABG CARBOXYHEMOGLOBIN 0.7 % (0.5-1.5); ABG HCO3 25.4 mmol/L (21.0-28.0); ABG METHEMOGLOBIN 0.1 % (0.0-1.5); ABG OXYGEN CONTENT 16.3 mL/dL (15.0-23.0); ABG OXYGEN SATURATION 94.1 % (94.0-98.0); ABG OXYHEMOGLOBIN 93.3 % (94.0-98.0); ABG PH 7.289 (7.350-7.450); ABG TOTAL HEMOGLOBIN 12.4 G/dL (12.0-16.0); FRACTIONATED INSPIRED OXYGEN 40.0 % (21-100.0); PO2, ARTERIAL BG 80.4 mmHg (83.0-108.0); SOURCE, BLOOD GAS ARTERIAL; TEMPERATURE, FAHRENHEIT, BG 99.0 FAHREN (96.0-98.6)
[2024-09-16 10:00] LABS: ABG A-A DIFF O2 133.8 mmHg (10-20.0); ABG PCO2 62 mmHg (32.0-45.0); O2 DEVICE,BLOOD GAS VENTILATOR (ROOM AIR); SITE, BLOOD GAS LFT BRACHIAL; VENT MODE, BG CPAP (ROOM AIR)
[2024-09-16 10:01] LABS: CPAP, BG 0 cm H2O; PATIENT RATE, BG 15.0 min.; PRESSURE SUPPORT, BG 8 cm H2O; SPONTANEOUS VT, BG 450 ml
[2024-09-16] MEDS: INSULIN LISPRO 100 UNITS/ML SQ PRN (17:51)
[2024-09-16 20:06] LABS: GLUCOMETER DEV NAME(LOC) ICUN.6; GLUCOSE,POINT OF CARE 114 MG/DL (70-110)
[2024-09-16 20:06] LABS: GLUCOMETER DEV NAME(LOC) ICUN.6; GLUCOSE,POINT OF CARE 143 MG/DL (70-110)
[2024-09-16] MEDS: ETHYL ALCOHOL 62% ANTISEPTIC NASAL SANITIZER 0.6 ML AMPUL NASAL SCH (20:55)
[2024-09-17] VITALS (11 sets, daily range): BP systolic 106–132; BP diastolic 49–61; PULSE 46–63; RESP 12–28; TEMP 98.4–99.3; O2SAT 95–100
[2024-09-17 03:56] LABS: GLUCOMETER DEV NAME(LOC) ICUN.6; GLUCOSE,POINT OF CARE 130 MG/DL (70-110)
[2024-09-17 06:24] LABS: PLATELET COUNT (AUTO) 151 K/uL (150-450); RED BLOOD CELL COUNT(AUTO) 4.64 MIL/uL (4.00-5.20); RED CELL DISTRIBUTION WIDTH 16.7 % (11.5-14.5); WHITE BLOOD COUNT (AUTO) 8.7 K/uL (4.5-11.0)
[2024-09-17 07:27] LABS: CALCIUM, TOTAL 9.3 mg/dL (8.8-10.5); CREATININE 0.56 mg/dL (0.60-1.30); GLOMERULAR FILTR. RATE CALC > 60 mL/min (>60); GLUCOSE,RANDOM 106 mg/dL (70-110); SODIUM SERUM 141 mmol/L (136-145); UREA NITROGEN, BLOOD 12 mg/dL (7-18)
[2024-09-17] MEDS: HEPARIN SODIUM,PORCINE 5,000 UNITS/ML VIAL IVP PRN (08:29)
[2024-09-17] MEDS: MIDAZOLAM HCL 100 MG in SODIUM CHLORIDE 0.9% 180 ML IV PRN (08:33)
[2024-09-17] MEDS ORDERED: SODIUM CHLORIDE 0.9% 250 ML IV ONE (10:12)
[2024-09-17 14:23] LABS: ABG BASE EXCESS 9.4 mmol/L (-2.0-3.0); ABG CARBOXYHEMOGLOBIN 1.2 % (0.5-1.5); ABG HCO3 31.9 mmol/L (21.0-28.0); ABG METHEMOGLOBIN 0.8 % (0.0-1.5); ABG OXYGEN CONTENT 17.3 mL/dL (15.0-23.0); ABG OXYGEN SATURATION 96.8 % (94.0-98.0); ABG OXYHEMOGLOBIN 94.9 % (94.0-98.0); ABG PCO2 50 mmHg (32.0-45.0); ABG PH 7.444 (7.350-7.450); ABG TOTAL HEMOGLOBIN 12.9 G/dL (12.0-16.0); FRACTIONATED INSPIRED OXYGEN 40.0 % (21-100.0); PO2, ARTERIAL BG 82.9 mmHg (83.0-108.0); SOURCE, BLOOD GAS ARTERIAL; TEMPERATURE, FAHRENHEIT, BG 99.3 FAHREN (96.0-98.6)
[2024-09-17 15:58] LABS: ALLEN TEST, BLOOD GAS Positive; CPAP, BG 0 cm H2O; O2 DEVICE,BLOOD GAS VENTILATOR (ROOM AIR); PATIENT RATE, BG 20.0 min.; PRESSURE SUPPORT, BG 8 cm H2O; SITE, BLOOD GAS LFT RADIAL; SPONTANEOUS VT, BG 500 ml; VENT MODE, BG CPAP (ROOM AIR)
[2024-09-17 15:59] LABS: ABG A-A DIFF O2 144.4 mmHg (10-20.0)
[2024-09-17] MEDS: ACETAMINOPHEN 325 MG TABLET PO PRN (19:46)
[2024-09-17 20:16] LABS: GLUCOMETER DEV NAME(LOC) ICU.S6; GLUCOSE,POINT OF CARE 97 MG/DL (70-110)
[2024-09-17 20:21] LABS: GLUCOMETER DEV NAME(LOC) ICUN.6; GLUCOSE,POINT OF CARE 119 MG/DL (70-110)
[2024-09-17 20:21] LABS: GLUCOMETER DEV NAME(LOC) ICUN.6; GLUCOSE,POINT OF CARE 91 MG/DL (70-110)
[2024-09-17] MEDS: LORazepam 2 MG/ML VIAL IM PRN (22:14)
[2024-09-18] VITALS (11 sets, daily range): BP systolic 101–131; BP diastolic 51–71; PULSE 63–89; RESP 19–30; TEMP 98.5–99.2; O2SAT 63–99
[2024-09-18 06:35] LABS: GLUCOMETER DEV NAME(LOC) ICUN.6; GLUCOSE,POINT OF CARE 86 MG/DL (70-110)
[2024-09-18 07:09] LABS: PLATELET COUNT (AUTO) 136 K/uL (150-450); RED BLOOD CELL COUNT(AUTO) 4.95 MIL/uL (4.00-5.20); RED CELL DISTRIBUTION WIDTH 16.9 % (11.5-14.5); WHITE BLOOD COUNT (AUTO) 6.3 K/uL (4.5-11.0)
[2024-09-18] MEDS: HEPARIN SODIUM,PORCINE 5,000 UNITS/ML VIAL IVP PRN (07:35)
[2024-09-18 07:44] LABS: ASPARTATE AMINOTRANSFERASE 32 U/L (15-37); CALCIUM, TOTAL 9.4 mg/dL (8.8-10.5); CREATININE 0.53 mg/dL (0.60-1.30); GLOMERULAR FILTR. RATE CALC > 60 mL/min (>60); GLUCOSE,RANDOM 76 mg/dL (70-110); SODIUM SERUM 146 mmol/L (136-145); TOTAL PROTEIN, SERUM 5.6 g/dL (6.4-8.2); UREA NITROGEN, BLOOD 9 mg/dL (7-18)
[2024-09-18] MEDS: DIVALPROEX SODIUM 250 MG ER TABLET PO SCH (09:00)
[2024-09-18] MEDS: IPRATROPIUM BROMIDE 0.5 MG/2.5 ML NEB SOLUTION NEB PRN (11:27)
[2024-09-18] MEDS: ALBUTEROL SULFATE 2.5 MG/0.5 ML NEB SOLUTION NEB PRN (11:27)
[2024-09-18 11:55] LABS: GLUCOMETER DEV NAME(LOC) ICU.S6; GLUCOSE,POINT OF CARE 89 MG/DL (70-110)
[2024-09-18 11:55] LABS: GLUCOMETER DEV NAME(LOC) ICU.S6; GLUCOSE,POINT OF CARE 77 MG/DL (70-110)
[2024-09-18] MEDS: DEXTROSE 5%-0.45% SODIUM CHL 1,000 ML IV SCH (11:55)
[2024-09-18 19:40] LABS: GLUCOMETER DEV NAME(LOC) ICUN.6; GLUCOSE,POINT OF CARE 162 MG/DL (70-110)
[2024-09-19] VITALS (8 sets, daily range): BP systolic 99–152; BP diastolic 49–74; PULSE 56–78; RESP 19–28; TEMP 97.8–98.8; O2SAT 90–99
[2024-09-19 05:49] LABS: PLATELET COUNT (AUTO) 135 K/uL (150-450); RED BLOOD CELL COUNT(AUTO) 4.34 MIL/uL (4.00-5.20); RED CELL DISTRIBUTION WIDTH 16.7 % (11.5-14.5); WHITE BLOOD COUNT (AUTO) 6.1 K/uL (4.5-11.0)
[2024-09-19 05:53] LABS: CALCIUM, TOTAL 9.0 mg/dL (8.8-10.5); CREATININE 0.50 mg/dL (0.60-1.30); GLOMERULAR FILTR. RATE CALC > 60 mL/min (>60); GLUCOSE,RANDOM 84 mg/dL (70-110); SODIUM SERUM 148 mmol/L (136-145); UREA NITROGEN, BLOOD 7 mg/dL (7-18)
[2024-09-19 05:56] LABS: GLUCOMETER DEV NAME(LOC) ICU.S6; GLUCOSE,POINT OF CARE 114 MG/DL (70-110)
[2024-09-19 06:10] LABS: GLUCOMETER DEV NAME(LOC) ICUN.6; GLUCOSE,POINT OF CARE 108 MG/DL (70-110)
[2024-09-19] MEDS: DEXTROSE 5%-WATER 500 ML IV ONE (10:15)
[2024-09-19 16:06] LABS: GLUCOMETER DEV NAME(LOC) ICUN.6; GLUCOSE,POINT OF CARE 113 MG/DL (70-110)
[2024-09-19 18:05] LABS: GLUCOMETER DEV NAME(LOC) 5S.1D; GLUCOSE,POINT OF CARE 133 MG/DL (70-110)
[2024-09-20] VITALS (8 sets, daily range): BP systolic 117–157; BP diastolic 66–89; PULSE 69–90; RESP 20–28; TEMP 97.5–98.4; O2SAT 90–98
[2024-09-20 04:41] LABS: GLUCOMETER DEV NAME(LOC) 5S.2D; GLUCOSE,POINT OF CARE 111 MG/DL (70-110)
[2024-09-20 08:21] LABS: GLUCOMETER DEV NAME(LOC) 5S.2D; GLUCOSE,POINT OF CARE 113 MG/DL (70-110)
[2024-09-20] MEDS: LORazepam 2 MG/ML VIAL IVP PRN (08:57)
[2024-09-20 12:52] LABS: PLATELET COUNT (AUTO) 131 K/uL (150-450); RED BLOOD CELL COUNT(AUTO) 4.55 MIL/uL (4.00-5.20); RED CELL DISTRIBUTION WIDTH 16.8 % (11.5-14.5); WHITE BLOOD COUNT (AUTO) 6.8 K/uL (4.5-11.0)
[2024-09-20 13:04] LABS: CALCIUM, TOTAL 8.8 mg/dL (8.8-10.5); CREATININE 0.52 mg/dL (0.60-1.30); GLOMERULAR FILTR. RATE CALC > 60 mL/min (>60); GLUCOSE,RANDOM 105 mg/dL (70-110); SODIUM SERUM 148 mmol/L (136-145); UREA NITROGEN, BLOOD 5 mg/dL (7-18)
[2024-09-20 18:25] LABS: GLUCOMETER DEV NAME(LOC) 5S.1D; GLUCOSE,POINT OF CARE 140 MG/DL (70-110)
[2024-09-20] MEDS: MORPHINE SULFATE 2 MG/ML SYRINGE IVP PRN (18:34)
[2024-09-20 18:56] LABS: GLUCOMETER DEV NAME(LOC) 5S.2D; GLUCOSE,POINT OF CARE 132 MG/DL (70-110)
[2024-09-20 20:25] LABS: GLUCOMETER DEV NAME(LOC) 5S.1D; GLUCOSE,POINT OF CARE 132 MG/DL (70-110)
[2024-09-21] VITALS (9 sets, daily range): BP systolic 125–149; BP diastolic 71–90; PULSE 72–79; RESP 20–28; TEMP 98.1–98.6; O2SAT 92–99
[2024-09-21 08:00] LABS: GLUCOMETER DEV NAME(LOC) 5S.1D; GLUCOSE,POINT OF CARE 130 MG/DL (70-110)
[2024-09-21 08:34] LABS: PLATELET COUNT (AUTO) 150 K/uL (150-450); RED BLOOD CELL COUNT(AUTO) 4.90 MIL/uL (4.00-5.20); RED CELL DISTRIBUTION WIDTH 16.6 % (11.5-14.5); WHITE BLOOD COUNT (AUTO) 5.2 K/uL (4.5-11.0)
[2024-09-21] MEDS ORDERED: SODIUM CHLORIDE 0.9% 500 ML IV ONE (08:49)
[2024-09-21 08:53] LABS: CALCIUM, TOTAL 8.7 mg/dL (8.8-10.5); CREATININE 0.51 mg/dL (0.60-1.30); GLOMERULAR FILTR. RATE CALC > 60 mL/min (>60); GLUCOSE,RANDOM 120 mg/dL (70-110); SODIUM SERUM 149 mmol/L (136-145); UREA NITROGEN, BLOOD 9 mg/dL (7-18)
[2024-09-21] MEDS: DEXTROSE 5%-WATER 1,000 ML IV ONE (12:56)
[2024-09-21 17:36] LABS: GLUCOMETER DEV NAME(LOC) 5S.1D; GLUCOSE,POINT OF CARE 133 MG/DL (70-110)
[2024-09-21 17:36] LABS: GLUCOMETER DEV NAME(LOC) 5S.1D; GLUCOSE,POINT OF CARE 119 MG/DL (70-110)
[2024-09-21] MEDS: APIXABAN 5 MG TABLET PO SCH (19:53)
[2024-09-21] MEDS: MIDODRINE HCL 5 MG TABLET PO SCH (19:55)
[2024-09-22] VITALS (10 sets, daily range): BP systolic 111–158; BP diastolic 56–83; PULSE 65–78; RESP 19–24; TEMP 98.1–98.8; O2SAT 93–100
[2024-09-22 01:56] LABS: GLUCOMETER DEV NAME(LOC) 5S.2D; GLUCOSE,POINT OF CARE 144 MG/DL (70-110)
[2024-09-22 06:04] LABS: PLATELET COUNT (AUTO) 138 K/uL (150-450); RED BLOOD CELL COUNT(AUTO) 4.90 MIL/uL (4.00-5.20); RED CELL DISTRIBUTION WIDTH 16.9 % (11.5-14.5); WHITE BLOOD COUNT (AUTO) 7.2 K/uL (4.5-11.0)
[2024-09-22 06:20] LABS: CALCIUM, TOTAL 9.2 mg/dL (8.8-10.5); CREATININE 0.63 mg/dL (0.60-1.30); GLOMERULAR FILTR. RATE CALC > 60 mL/min (>60); GLUCOSE,RANDOM 137 mg/dL (70-110); SODIUM SERUM 147 mmol/L (136-145); UREA NITROGEN, BLOOD 13 mg/dL (7-18)
[2024-09-22 09:11] LABS: GLUCOMETER DEV NAME(LOC) 5S.2D; GLUCOSE,POINT OF CARE 119 MG/DL (70-110)
[2024-09-22 12:06] LABS: GLUCOMETER DEV NAME(LOC) 5S.2D; GLUCOSE,POINT OF CARE 163 MG/DL (70-110)
[2024-09-22] MEDS: ALBUTEROL SULFATE 2.5 MG/0.5 ML NEB SOLUTION NEB SCH (13:59)
[2024-09-22] MEDS ORDERED: SODIUM CHLORIDE 0.9% 100 ML ONE (15:37)
[2024-09-22 16:46] LABS: GLUCOMETER DEV NAME(LOC) 5S.2D; GLUCOSE,POINT OF CARE 94 MG/DL (70-110)
[2024-09-23] VITALS (13 sets, daily range): BP systolic 108–150; BP diastolic 59–81; PULSE 57–89; RESP 17–22; TEMP 98–98.6; O2SAT 88–98
[2024-09-23 01:36] LABS: GLUCOMETER DEV NAME(LOC) 5S.2D; GLUCOSE,POINT OF CARE 106 MG/DL (70-110)
[2024-09-23 05:36] LABS: GLUCOMETER DEV NAME(LOC) 5S.2D; GLUCOSE,POINT OF CARE 157 MG/DL (70-110)
[2024-09-23 08:31] LABS: GLUCOMETER DEV NAME(LOC) 5S.2D; GLUCOSE,POINT OF CARE 176 MG/DL (70-110)
[2024-09-23 15:21] LABS: GLUCOMETER DEV NAME(LOC) 5S.1D; GLUCOSE,POINT OF CARE 96 MG/DL (70-110)
[2024-09-23 18:56] LABS: GLUCOMETER DEV NAME(LOC) 5S.1D; GLUCOSE,POINT OF CARE 95 MG/DL (70-110)
[2024-09-24] VITALS (11 sets, daily range): BP systolic 142–159; BP diastolic 82–89; PULSE 64–84; RESP 16–22; TEMP 98.1–98.6; O2SAT 89–99
[2024-09-24 03:31] LABS: GLUCOMETER DEV NAME(LOC) 5S.2D; GLUCOSE,POINT OF CARE 164 MG/DL (70-110)
[2024-09-24 06:48] LABS: PLATELET COUNT (AUTO) 117 K/uL (150-450); RED BLOOD CELL COUNT(AUTO) 4.95 MIL/uL (4.00-5.20); RED CELL DISTRIBUTION WIDTH 17.5 % (11.5-14.5); WHITE BLOOD COUNT (AUTO) 5.9 K/uL (4.5-11.0)
[2024-09-24] MEDS: *CLINICAL-MEROPENEM DOSING CLINICAL ONE (07:16)
[2024-09-24 07:21] LABS: CALCIUM, TOTAL 8.7 mg/dL (8.8-10.5); CREATININE 0.77 mg/dL (0.60-1.30); GLOMERULAR FILTR. RATE CALC > 60 mL/min (>60); GLUCOSE,RANDOM 129 mg/dL (70-110); SODIUM SERUM 143 mmol/L (136-145); UREA NITROGEN, BLOOD 22 mg/dL (7-18)
[2024-09-24] MEDS: MEROPENEM 1 GM in SODIUM CHLORIDE 0.9% 50 ML IV SCH (09:18)
[2024-09-24 11:10] LABS: GLUCOMETER DEV NAME(LOC) 5S.1D; GLUCOSE,POINT OF CARE 127 MG/DL (70-110)
[2024-09-24 16:56] LABS: GLUCOMETER DEV NAME(LOC) 5S.1D; GLUCOSE,POINT OF CARE 148 MG/DL (70-110)
[2024-09-24 22:01] LABS: GLUCOMETER DEV NAME(LOC) 5S.2D; GLUCOSE,POINT OF CARE 106 MG/DL (70-110)
[2024-09-24 22:01] LABS: GLUCOMETER DEV NAME(LOC) 5S.2D; GLUCOSE,POINT OF CARE 178 MG/DL (70-110)
[2024-09-25] VITALS (10 sets, daily range): BP systolic 140–152; BP diastolic 74–82; PULSE 63–96; RESP 17–20; TEMP 97.9–99.1; O2SAT 75–100
[2024-09-25] MEDS ORDERED: SODIUM CHLORIDE 0.9% 250 ML IV ONE (00:07)
[2024-09-25 06:55] LABS: GLUCOMETER DEV NAME(LOC) 6S.1D; GLUCOSE,POINT OF CARE 131 MG/DL (70-110)
[2024-09-25] MEDS: LACTOBAC ACID/BULG/BIFID/THERM TABLET PO SCH (15:03)
[2024-09-25] MEDS: FUROSEMIDE 20 MG/2 ML VIAL IVP ONE (15:03)
[2024-09-25 16:00] LABS: PLATELET COUNT (AUTO) 191 K/uL (150-450); RED BLOOD CELL COUNT(AUTO) 4.64 MIL/uL (4.00-5.20); RED CELL DISTRIBUTION WIDTH 16.7 % (11.5-14.5); WHITE BLOOD COUNT (AUTO) 8.2 K/uL (4.5-11.0)
[2024-09-26] VITALS (7 sets, daily range): BP systolic 118–141; BP diastolic 70–76; PULSE 64–86; RESP 18–20; TEMP 97.5–98.1; O2SAT 91–98
[2024-09-27] VITALS (9 sets, daily range): BP systolic 125–155; BP diastolic 74–83; PULSE 65–78; RESP 16–20; TEMP 97.5–98.6; O2SAT 92–96
[2024-09-28 04:25] VITALS: BP 105/52; PULSE 60; RESP 18; TEMP 98.4; O2SAT 95
[2024-09-28 08:00] VITALS: PULSE 72; PULSE 82; RESP 20; O2SAT 94
[2024-09-28 08:49] VITALS: BP 110/63; PULSE 68; RESP 18; TEMP 97.5; O2SAT 95
[2024-09-28] MEDS: DOCUSATE SODIUM 100 MG CAPSULE PO SCH (09:11)
[2024-09-28 14:00] VITALS: PULSE 76; RESP 18; O2SAT 96
[2024-09-28 17:04] VITALS: BP 127/79; PULSE 70; RESP 20; TEMP 98.2; O2SAT 96
[2024-09-28 20:19] VITALS: BP 126/74; PULSE 63; RESP 20; TEMP 98.4; O2SAT 95
[2024-09-29] VITALS (8 sets, daily range): BP systolic 123–142; BP diastolic 66–83; PULSE 70–89; RESP 18–20; TEMP 97.7–98.4; O2SAT 94–98
[2024-09-30] VITALS (7 sets, daily range): BP systolic 106–143; BP diastolic 63–83; PULSE 69–85; RESP 18–20; TEMP 97.3–98.4; O2SAT 95–99
[2024-10-01 06:15] VITALS: BP 135/75; PULSE 63; RESP 18; TEMP 97.7; O2SAT 95
[2024-10-01 09:35] VITALS: BP 128/69; PULSE 74; RESP 18; TEMP 98; O2SAT 95
[2024-10-01 16:23] VITALS: BP 140/75; PULSE 75; RESP 18; TEMP 98.1; O2SAT 96
[2024-10-01 20:06] VITALS: BP 133/79; PULSE 78; RESP 18; TEMP 98.8; O2SAT 95
[2024-10-02 04:00] VITALS: BP 120/69; PULSE 70; RESP 18; TEMP 97.9; O2SAT 96
[2024-10-02 08:01] VITALS: BP 101/62; PULSE 71; RESP 18; TEMP 97.7; O2SAT 97
[2024-10-02 08:23] VITALS: BP 112/62; PULSE 69; RESP 18; O2SAT 97
[2024-10-02 17:34] VITALS: BP 122/71; PULSE 85; RESP 18; TEMP 97.7; O2SAT 95
[2024-10-02 20:30] VITALS: BP 123/76; PULSE 84; RESP 18; TEMP 98.2; O2SAT 97
[2024-10-03 05:27] VITALS: BP 111/64; PULSE 81; RESP 18; TEMP 97.7; O2SAT 99
[2024-10-03 09:35] VITALS: BP 109/66; PULSE 84; RESP 18; TEMP 97.9; O2SAT 90
[2024-10-03 16:54] VITALS: BP 129/72; PULSE 84; RESP 19; TEMP 98.1; O2SAT 95
[2024-10-03 20:45] VITALS: BP 135/80; PULSE 81; RESP 18; TEMP 98.2; O2SAT 91
[2024-10-04 06:05] VITALS: BP 145/80; PULSE 69; RESP 18; TEMP 97.7; O2SAT 94
[2024-10-04 09:11] VITALS: BP 132/85; PULSE 81; RESP 18; TEMP 97.7; O2SAT 100
[2024-10-04 15:45] VITALS: BP 139/87; PULSE 85; RESP 18; TEMP 98; O2SAT 100
[2024-10-04 20:06] VITALS: BP 137/87; PULSE 88; RESP 20; TEMP 97.9; O2SAT 94
[2024-10-04] MEDS: PANTOPRAZOLE SODIUM 40 MG DR TABLET PO SCH (20:33)
[2024-10-05 05:00] VITALS: BP 116/71; PULSE 69; RESP 18; TEMP 97.5; O2SAT 97
[2024-10-05 07:55] VITALS: BP 118/71; PULSE 77; RESP 18; TEMP 97.7; O2SAT 96
[2024-10-05 12:00] VITALS: RESP 18
[2024-10-05 16:56] VITALS: RESP 18
[2024-10-05 18:32] VITALS: RESP 18; O2SAT 95
[2024-10-05 19:36] VITALS: BP 137/77; PULSE 79; RESP 18; TEMP 97.9; O2SAT 94
[2024-10-06 04:24] VITALS: BP 120/70; PULSE 78; RESP 18; TEMP 97.9; O2SAT 95
[2024-10-06 08:00] VITALS: BP 128/74; PULSE 92; RESP 19; TEMP 97.7; O2SAT 97
[2024-10-06 15:00] VITALS: BP 121/68; PULSE 82; RESP 18; TEMP 97.6; O2SAT 98
[2024-10-06 20:19] VITALS: BP 124/75; PULSE 89; RESP 18; TEMP 98.1; O2SAT 96
[2024-10-07 04:31] VITALS: BP 100/57; PULSE 78; RESP 18; TEMP 97.5; O2SAT 99
[2024-10-07 08:06] VITALS: BP 120/76; PULSE 74; RESP 18; TEMP 97.5; O2SAT 96
[2024-10-07 15:35] VITALS: BP 124/90; PULSE 74; RESP 20; TEMP 98.4; O2SAT 95
[2024-10-07 20:40] VITALS: BP 116/68; PULSE 76; RESP 18; TEMP 97.9; O2SAT 97
[2024-10-08 05:46] VITALS: BP 110/72; PULSE 77; RESP 18; TEMP 97.5; O2SAT 98
[2024-10-08 08:39] VITALS: BP 116/65; PULSE 65; RESP 18; TEMP 97.8; O2SAT 98
[2024-10-08] MEDS: SODIUM PHOSPHATE,MONO-DIBASIC 133 ML ENEMA PR ONE (14:27)
[2024-10-08 19:15] VITALS: BP 124/77; PULSE 86; RESP 18; TEMP 98.2; O2SAT 98
[2024-10-09 04:24] VITALS: BP 120/76; PULSE 70; RESP 18; TEMP 97.5; O2SAT 96
[2024-10-09 08:24] VITALS: BP 105/77; PULSE 85; RESP 20; TEMP 98.2; O2SAT 97
[2024-10-09 16:11] VITALS: BP 100/62; PULSE 83; RESP 20; TEMP 98.1; O2SAT 92
[2024-10-09 20:02] VITALS: BP 98/65; PULSE 84; RESP 20; TEMP 97.5; O2SAT 94
[2024-10-10 04:17] VITALS: BP 108/72; PULSE 81; RESP 18; TEMP 97.9; O2SAT 98
[2024-10-10 08:37] VITALS: BP 110/72; PULSE 87; RESP 18; TEMP 98.8; O2SAT 97
[2024-10-10 16:01] VITALS: BP 99/61; PULSE 82; RESP 18; TEMP 98.6; O2SAT 96
[2024-10-10 20:14] VITALS: BP 106/71; PULSE 81; RESP 18; TEMP 98.1; O2SAT 96
[2024-10-11 05:16] VITALS: BP 103/77; PULSE 83; RESP 18; TEMP 98.2; O2SAT 96
[2024-10-11 08:12] VITALS: BP 111/71; PULSE 76; RESP 18; TEMP 98.1; O2SAT 99
[2024-10-11 15:29] VITALS: BP 104/66; PULSE 79; RESP 18; TEMP 98.1; O2SAT 99
[2024-10-11 20:00] VITALS: BP 114/72; PULSE 75; RESP 18; TEMP 97.5; O2SAT 96
[2024-10-12 04:40] VITALS: BP 105/70; PULSE 73; RESP 18; TEMP 97.7; O2SAT 97
[2024-10-12 08:04] VITALS: BP 95/62; PULSE 81; RESP 19; TEMP 97.7; O2SAT 94
[2024-10-12] MEDS: MINERAL OIL 133 ML ENEMA PR ONE (12:50)
[2024-10-12 15:41] VITALS: BP 98/68; PULSE 80; RESP 19; TEMP 97.8; O2SAT 97
[2024-10-12 20:17] VITALS: BP 114/76; PULSE 78; RESP 18; TEMP 98.4; O2SAT 97
[2024-10-13 06:15] VITALS: BP 104/74; PULSE 85; RESP 18; TEMP 98.2; O2SAT 99
[2024-10-13 07:46] VITALS: BP 102/72; PULSE 81; RESP 18; TEMP 98.1; O2SAT 100
[2024-10-13 16:37] VITALS: BP 105/72; PULSE 90; RESP 18; TEMP 98; O2SAT 95
[2024-10-13 20:05] VITALS: BP 101/66; PULSE 77; RESP 18; TEMP 98.1; O2SAT 96
[2024-10-14 05:08] VITALS: BP 106/71; PULSE 70; RESP 19; TEMP 98.2; O2SAT 95
[2024-10-14 08:08] VITALS: BP 102/67; PULSE 74; RESP 18; TEMP 98.2; O2SAT 97
[2024-10-14 16:19] VITALS: BP 107/73; PULSE 88; RESP 16; TEMP 98.4; O2SAT 91
[2024-10-14 19:15] VITALS: BP 112/68; PULSE 91; RESP 18; TEMP 98.2; O2SAT 93
[2024-10-15 04:37] VITALS: BP 128/65; PULSE 79; RESP 18; TEMP 98.4; O2SAT 98
[2024-10-15 08:16] VITALS: BP 119/77; PULSE 80; RESP 18; TEMP 97.7; O2SAT 98
[2024-10-15 16:42] LABS: ABG BASE EXCESS 7.9 mmol/L (-2.0-3.0); ABG CARBOXYHEMOGLOBIN 0.7 % (0.5-1.5); ABG HCO3 30.3 mmol/L (21.0-28.0); ABG METHEMOGLOBIN 0.2 % (0.0-1.5); ABG OXYGEN CONTENT 16.2 mL/dL (15.0-23.0); ABG OXYGEN SATURATION 92.8 % (94.0-98.0); ABG OXYHEMOGLOBIN 92.0 % (94.0-98.0); ABG PCO2 50 mmHg (32.0-45.0); ABG PH 7.426 (7.350-7.450); ABG TOTAL HEMOGLOBIN 12.5 G/dL (12.0-16.0); FRACTIONATED INSPIRED OXYGEN 21.0 % (21-100.0); PO2, ARTERIAL BG 63.2 mmHg (83.0-108.0); SOURCE, BLOOD GAS ARTERIAL; TEMPERATURE, FAHRENHEIT, BG 97.0 FAHREN (96.0-98.6)
[2024-10-15 16:43] LABS: ALLEN TEST, BLOOD GAS Positive; O2 DEVICE,BLOOD GAS ROOM AIR (ROOM AIR); SITE, BLOOD GAS LFT RADIAL
[2024-10-15 20:15] VITALS: BP 123/79; PULSE 74; RESP 18; TEMP 97.9; O2SAT 96
[2024-10-16 06:00] VITALS: BP 120/79; PULSE 77; RESP 18; TEMP 97.7; O2SAT 96
[2024-10-16 08:00] VITALS: BP 117/80; PULSE 71; RESP 20; TEMP 97.7; O2SAT 98
[2024-10-16 15:30] VITALS: BP 114/76; PULSE 76; RESP 20; TEMP 98.2; O2SAT 95
[2024-10-16 20:00] VITALS: BP 116/74; PULSE 72; RESP 20; TEMP 98.1; O2SAT 95
[2024-10-17 05:52] VITALS: BP 113/82; PULSE 73; RESP 20; TEMP 97.7; O2SAT 97
[2024-10-17 09:13] VITALS: BP 118/76; PULSE 86; RESP 18; TEMP 98; O2SAT 92
[2024-10-17] MEDS ORDERED: MIDO5TAB29 PO (10:53)
[2024-10-17] MEDS ORDERED: ALBU18HF12 IH (10:53)
[2024-10-17] MEDS ORDERED: PANT-31 PO (10:53)
[2024-10-17] MEDS ORDERED: PRED-554 PO (10:53)
[2024-10-17] MEDS ORDERED: DIVA-85 PO (10:53)
[2024-10-17] MEDS ORDERED: FLUT1BLS3 IH (10:53)
[2024-10-17] MEDS ORDERED: QUET200T30 PO (10:53)
== END 2024-10-17 13:15 | disposition home or self-care (01) | DRG 870 ==
LOC: EMS 12:09 → EDH 13:19 → UNDOADMIN 14:07 → EDH 14:07 → ICU 09-14 00:30 → 5S 09-19 14:50 → 6S 09-24 22:12 → 4E 10-08 09:43
PROVIDERS: ADMIT Internal Medicine; ATTEND Internal Medicine
PROC: 5A1955Z Respiratory Ventilation, Greater than 96 Consecutive Hours (ICD-10-PCS; principal; 2024-09-13)
PROC: 0BH17EZ Insertion of Endotracheal Airway into Trachea, Via Natural or Artificial Opening (ICD-10-PCS; 2024-09-13)
DX: A41.89 Other specified sepsis (principal); G93.41 Metabolic encephalopathy; J96.01 Acute respiratory failure with hypoxia; J69.0 Pneumonitis due to inhalation of food and vomit; J96.02 Acute respiratory failure with hypercapnia; J18.9 Pneumonia, unspecified organism; E87.29 Other acidosis; N17.9 Acute kidney failure, unspecified; E87.0 Hyperosmolality and hypernatremia; I82.621 Acute embolism and thrombosis of deep veins of right upper extremity; J44.0 Chronic obstructive pulmonary disease with (acute) lower respiratory infection; K92.2 Gastrointestinal hemorrhage, unspecified; Z20.822 Contact with and (suspected) exposure to COVID-19; B96.29 Other Escherichia coli [E. coli] as the cause of diseases classified elsewhere; R65.20 Severe sepsis without septic shock; I10 Essential (primary) hypertension; R79.89 Other specified abnormal findings of blood chemistry; Z66 Do not resuscitate; I48.0 Paroxysmal atrial fibrillation; F25.9 Schizoaffective disorder, unspecified; R74.01 Elevation of levels of liver transaminase levels; Z87.891 Personal history of nicotine dependence; Z51.5 Encounter for palliative care; Z75.1 Person awaiting admission to adequate facility elsewhere; Z79.01 Long term (current) use of anticoagulants; Z91.199 Patient's noncompliance with other medical treatment and regimen due to unspecified reason; Z79.899 Other long term (current) drug therapy
CPT/HCPCS: 31500; 51702; 70450; 71045; 71260; 72193; 74018; 74160; 76700; 76705; 80048; 80053; 80074; 80076; 80307; 81003; 82140; 82271; 82550; 82570; 82805; 82962; 83605; 83615; 83735; 83880; 84132; 84145; 84300; 84484; 85014; 85018; 85025; 85610; 85730; 87040; 87070; 87081; 87186; 87205; 87804; 92526; 92610; 93005; 93306; 93970; 93971; 94002; 94003; 94640; 94660; 94760; 97110; 97116; 97163; 97167; 97530; 97535; 99291; G0378; G0480; G0481; J0610; J0696; J1100; J1644; J1815; J1938; J2060; J2185; J2250; J2270; J2470; J2543; J2704; J2919; J3010; J3490; J7030; J7040; J7050; J7060; J7120; P9046; Q9967; 36415-L1; 36415-TC; J7613